=== PATIENT | male | born 1960 | race Caucasian/White ===

== ENCOUNTER 2020-12-07 09:23 | Outpatient (CLI) | payer MEDICARE, MEDICAID, SELFPAY | END 2020-12-07 09:24 | disposition home or self-care (01) | LOC: WOUND 09:25 | PROVIDERS: Family Provider Physician Assistant Medical; Visit Provider Nurse Practitioner Family | DX: L97.812 Non-pressure chronic ulcer of other part of right lower leg with fat layer exposed (principal); L97.512 Non-pressure chronic ulcer of other part of right foot with fat layer exposed; L97.822 Non-pressure chronic ulcer of other part of left lower leg with fat layer exposed; L97.522 Non-pressure chronic ulcer of other part of left foot with fat layer exposed | CPT/HCPCS: 11042; 99215 ==

== ENCOUNTER 2020-12-14 10:47 | Outpatient (CLI) | payer MEDICARE, MEDICAID, SELFPAY | END 2020-12-14 10:48 | disposition home or self-care (01) | LOC: WOUND 10:48 | PROVIDERS: Family Provider Physician Assistant Medical; Visit Provider Nurse Practitioner Family | DX: L97.812 Non-pressure chronic ulcer of other part of right lower leg with fat layer exposed (principal); L97.512 Non-pressure chronic ulcer of other part of right foot with fat layer exposed; L97.822 Non-pressure chronic ulcer of other part of left lower leg with fat layer exposed; L97.522 Non-pressure chronic ulcer of other part of left foot with fat layer exposed | CPT/HCPCS: 11042; 11045 ==

== ENCOUNTER 2020-12-21 10:25 | Outpatient (CLI) | payer MEDICARE, MEDICAID, SELFPAY | END 2020-12-21 10:26 | disposition home or self-care (01) | LOC: WOUND 10:28 | PROVIDERS: Family Provider Physician Assistant Medical; Visit Provider Nurse Practitioner Family | DX: I89.0 Lymphedema, not elsewhere classified (principal); L97.812 Non-pressure chronic ulcer of other part of right lower leg with fat layer exposed; L97.512 Non-pressure chronic ulcer of other part of right foot with fat layer exposed; L97.822 Non-pressure chronic ulcer of other part of left lower leg with fat layer exposed; L97.522 Non-pressure chronic ulcer of other part of left foot with fat layer exposed | CPT/HCPCS: 99215 ==

== ENCOUNTER 2020-12-28 10:46 | Outpatient (CLI) | payer MEDICARE, MEDICAID, SELFPAY | END 2020-12-28 10:47 | disposition home or self-care (01) | LOC: WOUND 10:47 | PROVIDERS: Family Provider Physician Assistant Medical; Visit Provider Nurse Practitioner Family | DX: I89.0 Lymphedema, not elsewhere classified (principal); L97.512 Non-pressure chronic ulcer of other part of right foot with fat layer exposed; L97.822 Non-pressure chronic ulcer of other part of left lower leg with fat layer exposed; L97.522 Non-pressure chronic ulcer of other part of left foot with fat layer exposed | CPT/HCPCS: 11042 ==

== ENCOUNTER 2021-01-04 10:03 | Outpatient (CLI) | payer MEDICARE, MEDICAID, SELFPAY | END 2021-01-04 10:04 | disposition home or self-care (01) | LOC: WOUND 10:07 | PROVIDERS: Family Provider Physician Assistant Medical; Visit Provider Nurse Practitioner Family | DX: I89.0 Lymphedema, not elsewhere classified (principal); L97.512 Non-pressure chronic ulcer of other part of right foot with fat layer exposed; L97.822 Non-pressure chronic ulcer of other part of left lower leg with fat layer exposed; L97.522 Non-pressure chronic ulcer of other part of left foot with fat layer exposed | CPT/HCPCS: 11042; 11045 ==

== ENCOUNTER 2021-01-25 10:25 | Outpatient (CLI) | payer MEDICARE, MEDICAID, SELFPAY | END 2021-01-25 10:26 | disposition home or self-care (01) | LOC: WOUND 10:26 | PROVIDERS: Family Provider Physician Assistant Medical; Visit Provider Nurse Practitioner Family | DX: I89.0 Lymphedema, not elsewhere classified (principal); L97.512 Non-pressure chronic ulcer of other part of right foot with fat layer exposed; L97.522 Non-pressure chronic ulcer of other part of left foot with fat layer exposed | CPT/HCPCS: 11042 ==

== ENCOUNTER 2021-02-01 09:39 | Outpatient (CLI) | payer MEDICARE, MEDICAID, SELFPAY | END 2021-02-01 09:40 | disposition home or self-care (01) | LOC: WOUND 09:40 | PROVIDERS: Family Provider Physician Assistant Medical; Visit Provider Nurse Practitioner Family | DX: I89.0 Lymphedema, not elsewhere classified (principal); L97.512 Non-pressure chronic ulcer of other part of right foot with fat layer exposed; L97.522 Non-pressure chronic ulcer of other part of left foot with fat layer exposed | CPT/HCPCS: 11042 ==

== ENCOUNTER 2021-02-08 10:17 | Outpatient (CLI) | payer MEDICARE, MEDICAID, SELFPAY | END 2021-02-08 10:18 | disposition home or self-care (01) | LOC: WOUND 10:18 | PROVIDERS: Family Provider Physician Assistant Medical; Visit Provider Nurse Practitioner Family | DX: I89.0 Lymphedema, not elsewhere classified (principal); L97.512 Non-pressure chronic ulcer of other part of right foot with fat layer exposed; L97.522 Non-pressure chronic ulcer of other part of left foot with fat layer exposed | CPT/HCPCS: 11042; 87070; 87075; 87077; 87186; 87205 ==

== ENCOUNTER 2021-02-15 11:06 | Outpatient (CLI) | payer MEDICARE, MEDICAID, SELFPAY | END 2021-02-15 11:07 | disposition home or self-care (01) | LOC: WOUND 11:07 | PROVIDERS: Family Provider Physician Assistant Medical; Visit Provider Nurse Practitioner Family | DX: I89.0 Lymphedema, not elsewhere classified (principal); L97.512 Non-pressure chronic ulcer of other part of right foot with fat layer exposed; L97.522 Non-pressure chronic ulcer of other part of left foot with fat layer exposed | CPT/HCPCS: 11042 ==

== ENCOUNTER 2021-03-01 11:42 | Outpatient (CLI) | payer MEDICARE, MEDICAID, SELFPAY ==
--- NOTE | 2021-03-01 11:54 | XRR_ITS ---
PROCEDURE INFORMATION: Exam: XR Left Foot Exam date and time: 03/01/2021 11:54 AM Age: 60 years old Clinical indication: Condition or disease; Other: Dm ulcer; Additional info: Dm ulcer- attn: 2nd toe TECHNIQUE: Imaging protocol: XR Left foot. Views: 3 or more views. COMPARISON: No relevant prior studies available. FINDINGS: Bones/joints: Bulky spurring along the posterolateral talus. Moderate enthesophyte at the Achilles insertion. Love-ya-axlxgtnd degenerative spurring around the partially visualized ankle mortise. No cortical erosive changes or intramedullary lucency seen throughout the osseous structures of the left foot and in particular the 2nd toe. Soft tissues: Normal. XR/XR foot LT min 3V* [id number] IMPRESSION: No radiographic findings of acute osteomyelitis.
== END 2021-03-01 11:43 | disposition home or self-care (01) ==
LOC: RAD 11:50
PROVIDERS: PCP Physician Assistant Medical; Visit Provider Nurse Practitioner Family
DX: E11.621 Type 2 diabetes mellitus with foot ulcer (principal)
CPT/HCPCS: 73630

== ENCOUNTER 2021-03-08 10:57 | Outpatient (CLI) | payer MEDICARE, MEDICAID, SELFPAY | END 2021-03-08 10:58 | disposition home or self-care (01) | LOC: WOUND 10:58 | PROVIDERS: PCP Physician Assistant Medical; Visit Provider Nurse Practitioner Family | DX: E11.622 Type 2 diabetes mellitus with other skin ulcer (principal); L97.821 Non-pressure chronic ulcer of other part of left lower leg limited to breakdown of skin; I89.0 Lymphedema, not elsewhere classified; L97.512 Non-pressure chronic ulcer of other part of right foot with fat layer exposed; E11.621 Type 2 diabetes mellitus with foot ulcer; L97.521 Non-pressure chronic ulcer of other part of left foot limited to breakdown of skin | CPT/HCPCS: 11042 ==

== ENCOUNTER 2021-03-15 10:34 | Outpatient (CLI) | payer MEDICARE, MEDICAID, SELFPAY | END 2021-03-15 10:35 | disposition home or self-care (01) | LOC: WOUND 10:36 | PROVIDERS: PCP Physician Assistant Medical; Visit Provider Nurse Practitioner Family | DX: E11.622 Type 2 diabetes mellitus with other skin ulcer (principal); L97.812 Non-pressure chronic ulcer of other part of right lower leg with fat layer exposed | CPT/HCPCS: 11042 ==

== ENCOUNTER 2021-03-22 10:52 | Outpatient (CLI) | payer MEDICARE, MEDICAID, SELFPAY | END 2021-03-22 10:53 | disposition home or self-care (01) | LOC: WOUND 10:53 | PROVIDERS: PCP Physician Assistant Medical; Visit Provider Nurse Practitioner Family | DX: E11.622 Type 2 diabetes mellitus with other skin ulcer (principal); L97.812 Non-pressure chronic ulcer of other part of right lower leg with fat layer exposed; I89.0 Lymphedema, not elsewhere classified | CPT/HCPCS: 11042 ==

== ENCOUNTER 2021-03-29 11:26 | Outpatient (CLI) | payer MEDICARE, MEDICAID, SELFPAY | END 2021-03-29 11:27 | disposition home or self-care (01) | LOC: WOUND 11:27 | PROVIDERS: PCP Physician Assistant Medical; Visit Provider Emergency Medicine | DX: E11.622 Type 2 diabetes mellitus with other skin ulcer (principal); L97.812 Non-pressure chronic ulcer of other part of right lower leg with fat layer exposed; I89.0 Lymphedema, not elsewhere classified | CPT/HCPCS: 11042 ==

== ENCOUNTER 2021-04-05 10:50 | Outpatient (CLI) | payer MEDICARE, MEDICAID, SELFPAY | END 2021-04-05 10:51 | disposition home or self-care (01) | LOC: WOUND 10:56 | PROVIDERS: PCP Physician Assistant Medical; Visit Provider Nurse Practitioner Family | DX: E11.622 Type 2 diabetes mellitus with other skin ulcer (principal); L97.812 Non-pressure chronic ulcer of other part of right lower leg with fat layer exposed; E11.621 Type 2 diabetes mellitus with foot ulcer; L97.519 Non-pressure chronic ulcer of other part of right foot with unspecified severity | CPT/HCPCS: 11042 ==

== ENCOUNTER 2021-04-12 10:53 | Outpatient (CLI) | payer MEDICARE, MEDICAID, SELFPAY | END 2021-04-12 10:54 | disposition home or self-care (01) | LOC: WOUND 10:54 | PROVIDERS: Visit Provider Emergency Medicine | DX: E11.622 Type 2 diabetes mellitus with other skin ulcer (principal); L97.812 Non-pressure chronic ulcer of other part of right lower leg with fat layer exposed; E11.621 Type 2 diabetes mellitus with foot ulcer; L97.512 Non-pressure chronic ulcer of other part of right foot with fat layer exposed | CPT/HCPCS: 11042 ==

== ENCOUNTER 2021-05-03 10:55 | Outpatient (CLI) | payer MEDICARE, MEDICAID, SELFPAY | END 2021-05-03 10:56 | disposition home or self-care (01) | LOC: WOUND 10:56 | PROVIDERS: Visit Provider Emergency Medicine | DX: E11.622 Type 2 diabetes mellitus with other skin ulcer (principal); L97.812 Non-pressure chronic ulcer of other part of right lower leg with fat layer exposed; E11.621 Type 2 diabetes mellitus with foot ulcer; L97.512 Non-pressure chronic ulcer of other part of right foot with fat layer exposed | CPT/HCPCS: 11042 ==

== ENCOUNTER 2021-05-10 10:35 | Outpatient (CLI) | payer MEDICARE, MEDICAID, SELFPAY | END 2021-05-10 10:36 | disposition home or self-care (01) | LOC: WOUND 10:41 | PROVIDERS: Visit Provider Emergency Medicine | DX: E11.622 Type 2 diabetes mellitus with other skin ulcer (principal); L97.812 Non-pressure chronic ulcer of other part of right lower leg with fat layer exposed; E11.621 Type 2 diabetes mellitus with foot ulcer; L97.519 Non-pressure chronic ulcer of other part of right foot with unspecified severity | CPT/HCPCS: 11042; 87070; 87077; 87176; 87186; 87205; 99212 ==

== ENCOUNTER 2021-05-17 10:50 | Outpatient (CLI) | payer MEDICARE, MEDICAID, SELFPAY | END 2021-05-17 10:51 | disposition home or self-care (01) | LOC: WOUND 10:51 | PROVIDERS: Visit Provider Emergency Medicine | DX: E11.622 Type 2 diabetes mellitus with other skin ulcer (principal); L97.812 Non-pressure chronic ulcer of other part of right lower leg with fat layer exposed | CPT/HCPCS: 11042; 99212 ==

== ENCOUNTER 2021-05-24 11:19 | Outpatient (CLI) | payer MEDICARE, MEDICAID, SELFPAY | END 2021-05-24 11:20 | disposition home or self-care (01) | LOC: WOUND 11:20 | PROVIDERS: Visit Provider Emergency Medicine | DX: E11.622 Type 2 diabetes mellitus with other skin ulcer (principal); L97.812 Non-pressure chronic ulcer of other part of right lower leg with fat layer exposed | CPT/HCPCS: 11042 ==

== ENCOUNTER 2021-05-31 10:25 | Outpatient (CLI) | payer MEDICARE, MEDICAID, SELFPAY | END 2021-05-31 10:26 | disposition home or self-care (01) | LOC: WOUND 10:26 | PROVIDERS: Visit Provider Emergency Medicine | DX: E11.622 Type 2 diabetes mellitus with other skin ulcer (principal); L97.812 Non-pressure chronic ulcer of other part of right lower leg with fat layer exposed | CPT/HCPCS: 11042 ==

== ENCOUNTER 2021-06-07 10:47 | Outpatient (CLI) | payer MEDICARE, MEDICAID, SELFPAY | END 2021-06-07 10:48 | disposition home or self-care (01) | LOC: WOUND 10:49 | PROVIDERS: Visit Provider Emergency Medicine | DX: I96 Gangrene, not elsewhere classified (principal); E11.622 Type 2 diabetes mellitus with other skin ulcer; L97.812 Non-pressure chronic ulcer of other part of right lower leg with fat layer exposed; S31.811A Laceration without foreign body of right buttock, initial encounter; X58.XXXA Exposure to other specified factors, initial encounter | CPT/HCPCS: 11042; 11045; 87070; 87077; 87176; 87186; 87205 ==

== ENCOUNTER 2021-06-14 10:01 | Outpatient (CLI) | payer MEDICARE, MEDICAID, SELFPAY | END 2021-06-14 10:02 | disposition home or self-care (01) | LOC: WOUND 10:03 | PROVIDERS: Visit Provider Nurse Practitioner Family | DX: E11.622 Type 2 diabetes mellitus with other skin ulcer (principal); L97.812 Non-pressure chronic ulcer of other part of right lower leg with fat layer exposed; L98.411 Non-pressure chronic ulcer of buttock limited to breakdown of skin | CPT/HCPCS: 11042; A6251 ==

== ENCOUNTER 2021-06-21 10:31 | Outpatient (CLI) | payer MEDICARE, MEDICAID, SELFPAY | END 2021-06-21 10:32 | disposition home or self-care (01) | LOC: WOUND 10:31 | PROVIDERS: Visit Provider Emergency Medicine | DX: E11.622 Type 2 diabetes mellitus with other skin ulcer (principal); L97.812 Non-pressure chronic ulcer of other part of right lower leg with fat layer exposed; L98.411 Non-pressure chronic ulcer of buttock limited to breakdown of skin | CPT/HCPCS: 11042; 15271; A6250; A6252; Q4186 ==

== ENCOUNTER 2021-06-28 10:52 | Outpatient (CLI) | payer MEDICARE, MEDICAID, SELFPAY | END 2021-06-28 10:53 | disposition home or self-care (01) | LOC: WOUND 10:53 | PROVIDERS: Visit Provider Nurse Practitioner Family | DX: E11.622 Type 2 diabetes mellitus with other skin ulcer (principal); L97.812 Non-pressure chronic ulcer of other part of right lower leg with fat layer exposed | CPT/HCPCS: 11042 ==

== ENCOUNTER 2021-07-05 11:57 | Outpatient (CLI) | payer MEDICARE, MEDICAID, SELFPAY | END 2021-07-05 11:58 | disposition home or self-care (01) | LOC: WOUND 11:58 | PROVIDERS: Visit Provider Emergency Medicine | DX: E11.622 Type 2 diabetes mellitus with other skin ulcer (principal); L97.812 Non-pressure chronic ulcer of other part of right lower leg with fat layer exposed; I10 Essential (primary) hypertension | CPT/HCPCS: 15271; A6219; A6250; Q4186 ==

== ENCOUNTER 2021-07-12 11:09 | Outpatient (CLI) | payer MEDICARE, MEDICAID, SELFPAY | END 2021-07-12 11:10 | disposition home or self-care (01) | LOC: WOUND 11:10 | PROVIDERS: Visit Provider Emergency Medicine | DX: E11.622 Type 2 diabetes mellitus with other skin ulcer (principal); L97.812 Non-pressure chronic ulcer of other part of right lower leg with fat layer exposed; E11.621 Type 2 diabetes mellitus with foot ulcer; L97.512 Non-pressure chronic ulcer of other part of right foot with fat layer exposed; I10 Essential (primary) hypertension | CPT/HCPCS: 11042; 87070; 87077; 87176; 87186; 87205; 99212 ==

== ENCOUNTER 2021-07-19 10:58 | Outpatient (CLI) | payer MEDICARE, MEDICAID, SELFPAY | END 2021-07-19 10:59 | disposition home or self-care (01) | LOC: WOUND 11:01 | PROVIDERS: Visit Provider Emergency Medicine | DX: E11.622 Type 2 diabetes mellitus with other skin ulcer (principal); L97.812 Non-pressure chronic ulcer of other part of right lower leg with fat layer exposed; E11.621 Type 2 diabetes mellitus with foot ulcer; L97.512 Non-pressure chronic ulcer of other part of right foot with fat layer exposed; L97.522 Non-pressure chronic ulcer of other part of left foot with fat layer exposed | CPT/HCPCS: 11042; 11045; A6197; A6212 ==

== ENCOUNTER 2021-07-26 10:56 | Outpatient (CLI) | payer MEDICARE, MEDICAID, SELFPAY | END 2021-07-26 10:57 | disposition home or self-care (01) | LOC: WOUND 10:57 | PROVIDERS: Visit Provider Emergency Medicine | DX: E11.622 Type 2 diabetes mellitus with other skin ulcer (principal); L97.812 Non-pressure chronic ulcer of other part of right lower leg with fat layer exposed; E11.621 Type 2 diabetes mellitus with foot ulcer; L97.512 Non-pressure chronic ulcer of other part of right foot with fat layer exposed; L97.522 Non-pressure chronic ulcer of other part of left foot with fat layer exposed; I10 Essential (primary) hypertension | CPT/HCPCS: 11042; 11045 ==

== ENCOUNTER 2021-08-02 10:50 | Outpatient (CLI) | payer MEDICARE, MEDICAID, SELFPAY | END 2021-08-02 10:51 | disposition home or self-care (01) | LOC: WOUND 11:03 | PROVIDERS: Visit Provider Emergency Medicine | DX: E11.622 Type 2 diabetes mellitus with other skin ulcer (principal); L97.812 Non-pressure chronic ulcer of other part of right lower leg with fat layer exposed; I96 Gangrene, not elsewhere classified; E11.621 Type 2 diabetes mellitus with foot ulcer; L97.522 Non-pressure chronic ulcer of other part of left foot with fat layer exposed | CPT/HCPCS: 11042; 11045; 99212 ==

== ENCOUNTER 2021-08-09 11:09 | Outpatient (CLI) | payer MEDICARE, MEDICAID, SELFPAY | END 2021-08-09 11:10 | disposition home or self-care (01) | LOC: WOUND 11:10 | PROVIDERS: Visit Provider Nurse Practitioner Family | DX: E11.622 Type 2 diabetes mellitus with other skin ulcer (principal); L97.812 Non-pressure chronic ulcer of other part of right lower leg with fat layer exposed; E11.621 Type 2 diabetes mellitus with foot ulcer; L97.522 Non-pressure chronic ulcer of other part of left foot with fat layer exposed; L97.822 Non-pressure chronic ulcer of other part of left lower leg with fat layer exposed | CPT/HCPCS: 11042; 11045 ==

== ENCOUNTER 2021-08-16 10:42 | Outpatient (CLI) | payer MEDICARE, MEDICAID, SELFPAY | END 2021-08-16 10:43 | disposition home or self-care (01) | LOC: WOUND 10:43 | PROVIDERS: Visit Provider Nurse Practitioner Family | DX: I96 Gangrene, not elsewhere classified (principal); E11.622 Type 2 diabetes mellitus with other skin ulcer; L97.812 Non-pressure chronic ulcer of other part of right lower leg with fat layer exposed; E11.621 Type 2 diabetes mellitus with foot ulcer; L97.522 Non-pressure chronic ulcer of other part of left foot with fat layer exposed | CPT/HCPCS: 11042; 11045 ==

== ENCOUNTER 2021-08-23 09:41 | Outpatient (CLI) | payer MEDICARE, MEDICAID, SELFPAY | END 2021-08-23 09:42 | disposition home or self-care (01) | LOC: WOUND 09:44 | PROVIDERS: Visit Provider Thoracic Surgery (Cardiothoracic Vascular Surgery) | DX: I96 Gangrene, not elsewhere classified (principal); E11.622 Type 2 diabetes mellitus with other skin ulcer; L97.812 Non-pressure chronic ulcer of other part of right lower leg with fat layer exposed; E11.621 Type 2 diabetes mellitus with foot ulcer; L97.521 Non-pressure chronic ulcer of other part of left foot limited to breakdown of skin; L89.892 Pressure ulcer of other site, stage 2 | CPT/HCPCS: 11042; 97597 ==

== ENCOUNTER 2021-08-30 11:00 | Outpatient (CLI) | payer MEDICARE, MEDICAID, SELFPAY | END 2021-08-30 11:01 | disposition home or self-care (01) | LOC: WOUND 11:02 | PROVIDERS: Visit Provider Thoracic Surgery (Cardiothoracic Vascular Surgery) | DX: E11.622 Type 2 diabetes mellitus with other skin ulcer (principal); L97.811 Non-pressure chronic ulcer of other part of right lower leg limited to breakdown of skin; E11.621 Type 2 diabetes mellitus with foot ulcer; L97.522 Non-pressure chronic ulcer of other part of left foot with fat layer exposed; L97.511 Non-pressure chronic ulcer of other part of right foot limited to breakdown of skin | CPT/HCPCS: 11042; 97597 ==

== ENCOUNTER 2021-09-06 13:14 | Outpatient (CLI) | payer MEDICARE, MEDICAID, SELFPAY | END 2021-09-06 13:15 | disposition home or self-care (01) | LOC: WOUND 13:15 | PROVIDERS: Visit Provider Nurse Practitioner Family | DX: E11.622 Type 2 diabetes mellitus with other skin ulcer (principal); L97.812 Non-pressure chronic ulcer of other part of right lower leg with fat layer exposed; L97.822 Non-pressure chronic ulcer of other part of left lower leg with fat layer exposed; E11.621 Type 2 diabetes mellitus with foot ulcer; L97.512 Non-pressure chronic ulcer of other part of right foot with fat layer exposed; L97.522 Non-pressure chronic ulcer of other part of left foot with fat layer exposed | CPT/HCPCS: 11042; 11045 ==

== ENCOUNTER 2021-09-20 10:05 | Outpatient (CLI) | payer MEDICARE, MEDICAID, SELFPAY | END 2021-09-20 10:06 | disposition home or self-care (01) | LOC: WOUND 10:08 | PROVIDERS: Visit Provider Thoracic Surgery (Cardiothoracic Vascular Surgery) | DX: E11.622 Type 2 diabetes mellitus with other skin ulcer (principal); L97.811 Non-pressure chronic ulcer of other part of right lower leg limited to breakdown of skin; E11.621 Type 2 diabetes mellitus with foot ulcer; L97.521 Non-pressure chronic ulcer of other part of left foot limited to breakdown of skin | CPT/HCPCS: 97597; 97598; A6252; A6253 ==

== ENCOUNTER 2021-09-27 10:52 | Outpatient (CLI) | payer MEDICARE, MEDICAID, SELFPAY | END 2021-09-27 10:53 | disposition home or self-care (01) | LOC: WOUND 10:54 | PROVIDERS: Visit Provider Thoracic Surgery (Cardiothoracic Vascular Surgery) | DX: E11.622 Type 2 diabetes mellitus with other skin ulcer (principal); L97.812 Non-pressure chronic ulcer of other part of right lower leg with fat layer exposed; E11.621 Type 2 diabetes mellitus with foot ulcer; L97.522 Non-pressure chronic ulcer of other part of left foot with fat layer exposed | CPT/HCPCS: 11042; 97597 ==

== ENCOUNTER 2021-10-04 10:43 | Outpatient (CLI) | payer MEDICARE, MEDICAID, SELFPAY | END 2021-10-04 10:44 | disposition home or self-care (01) | LOC: WOUND 10:47 | PROVIDERS: Visit Provider Thoracic Surgery (Cardiothoracic Vascular Surgery) | DX: E11.622 Type 2 diabetes mellitus with other skin ulcer (principal); L97.811 Non-pressure chronic ulcer of other part of right lower leg limited to breakdown of skin; E11.621 Type 2 diabetes mellitus with foot ulcer; L97.521 Non-pressure chronic ulcer of other part of left foot limited to breakdown of skin | CPT/HCPCS: 97597; 97598 ==

== ENCOUNTER 2021-10-11 10:28 | Outpatient (CLI) | payer MEDICARE, MEDICAID, SELFPAY | END 2021-10-11 10:29 | disposition home or self-care (01) | LOC: WOUND 10:29 | PROVIDERS: Visit Provider Thoracic Surgery (Cardiothoracic Vascular Surgery) | DX: E11.621 Type 2 diabetes mellitus with foot ulcer (principal); L97.811 Non-pressure chronic ulcer of other part of right lower leg limited to breakdown of skin; E11.622 Type 2 diabetes mellitus with other skin ulcer; L97.522 Non-pressure chronic ulcer of other part of left foot with fat layer exposed | CPT/HCPCS: 11042; 87070; 87077; 87176; 87186; 87205; 97597 ==

== ENCOUNTER 2021-10-18 09:38 | Outpatient (CLI) | payer MEDICARE, MEDICAID, SELFPAY | END 2021-10-18 09:39 | disposition home or self-care (01) | PROVIDERS: Visit Provider Thoracic Surgery (Cardiothoracic Vascular Surgery) | DX: E11.621 Type 2 diabetes mellitus with foot ulcer (principal); E11.622 Type 2 diabetes mellitus with other skin ulcer; L97.821 Non-pressure chronic ulcer of other part of left lower leg limited to breakdown of skin; L97.522 Non-pressure chronic ulcer of other part of left foot with fat layer exposed; I89.0 Lymphedema, not elsewhere classified | CPT/HCPCS: 11042; 97597 ==

== ENCOUNTER 2021-10-25 09:42 | Outpatient (CLI) | payer MEDICARE, MEDICAID, SELFPAY | END 2021-10-25 09:43 | disposition home or self-care (01) | LOC: WOUND 09:44 | PROVIDERS: Visit Provider Thoracic Surgery (Cardiothoracic Vascular Surgery) | DX: E11.622 Type 2 diabetes mellitus with other skin ulcer (principal); L97.811 Non-pressure chronic ulcer of other part of right lower leg limited to breakdown of skin; E11.621 Type 2 diabetes mellitus with foot ulcer; L97.522 Non-pressure chronic ulcer of other part of left foot with fat layer exposed; L97.512 Non-pressure chronic ulcer of other part of right foot with fat layer exposed | CPT/HCPCS: 97597 ==

== ENCOUNTER 2021-11-01 09:26 | Outpatient (CLI) | payer MEDICARE, MEDICAID, SELFPAY | END 2021-11-01 09:27 | disposition home or self-care (01) | LOC: WOUND 09:27 | PROVIDERS: Visit Provider Thoracic Surgery (Cardiothoracic Vascular Surgery) | DX: E11.622 Type 2 diabetes mellitus with other skin ulcer (principal); I96 Gangrene, not elsewhere classified; L97.811 Non-pressure chronic ulcer of other part of right lower leg limited to breakdown of skin; L97.822 Non-pressure chronic ulcer of other part of left lower leg with fat layer exposed; L97.522 Non-pressure chronic ulcer of other part of left foot with fat layer exposed; L97.512 Non-pressure chronic ulcer of other part of right foot with fat layer exposed | CPT/HCPCS: 97597; A6252 ==

== ENCOUNTER 2021-11-08 09:38 | Outpatient (CLI) | payer MEDICARE, MEDICAID, SELFPAY | END 2021-11-08 09:39 | disposition home or self-care (01) | LOC: WOUND 09:39 | PROVIDERS: Visit Provider Thoracic Surgery (Cardiothoracic Vascular Surgery) | DX: E11.622 Type 2 diabetes mellitus with other skin ulcer (principal); L97.811 Non-pressure chronic ulcer of other part of right lower leg limited to breakdown of skin; E11.621 Type 2 diabetes mellitus with foot ulcer; L97.522 Non-pressure chronic ulcer of other part of left foot with fat layer exposed; L97.822 Non-pressure chronic ulcer of other part of left lower leg with fat layer exposed; L97.512 Non-pressure chronic ulcer of other part of right foot with fat layer exposed; I96 Gangrene, not elsewhere classified | CPT/HCPCS: 97597; A6251; A6252 ==

== ENCOUNTER → 2021-11-15 09:30 | Outpatient (BNVA) | payer MEDICARE, MEDICAID, SELFPAY | PROVIDERS: Visit Provider Nurse Practitioner Family | DX: E11.622 Type 2 diabetes mellitus with other skin ulcer (principal); E11.621 Type 2 diabetes mellitus with foot ulcer; I96 Gangrene, not elsewhere classified; L97.811 Non-pressure chronic ulcer of other part of right lower leg limited to breakdown of skin; L97.522 Non-pressure chronic ulcer of other part of left foot with fat layer exposed; L97.822 Non-pressure chronic ulcer of other part of left lower leg with fat layer exposed | CPT/HCPCS: 11042; A6251; A6252 ==

== ENCOUNTER → 2021-11-22 09:33 | Outpatient (BNVA) | payer MEDICARE, MEDICAID, SELFPAY | PROVIDERS: Visit Provider Thoracic Surgery (Cardiothoracic Vascular Surgery) | DX: E11.622 Type 2 diabetes mellitus with other skin ulcer (principal); I96 Gangrene, not elsewhere classified; L97.811 Non-pressure chronic ulcer of other part of right lower leg limited to breakdown of skin; L97.822 Non-pressure chronic ulcer of other part of left lower leg with fat layer exposed | CPT/HCPCS: 11042; 29581; 97597; A6252 ==

== ENCOUNTER → 2021-11-29 09:38 | Outpatient (BNVA) | payer MEDICARE, MEDICAID, SELFPAY | PROVIDERS: Visit Provider Thoracic Surgery (Cardiothoracic Vascular Surgery) | DX: E11.622 Type 2 diabetes mellitus with other skin ulcer (principal); L97.811 Non-pressure chronic ulcer of other part of right lower leg limited to breakdown of skin; I96 Gangrene, not elsewhere classified; L97.822 Non-pressure chronic ulcer of other part of left lower leg with fat layer exposed | CPT/HCPCS: 11042; 97597; A6252 ==

== ENCOUNTER → 2021-12-06 09:31 | Outpatient (BNVA) | payer MEDICARE, MEDICAID, SELFPAY | PROVIDERS: Visit Provider Thoracic Surgery (Cardiothoracic Vascular Surgery) | DX: E11.622 Type 2 diabetes mellitus with other skin ulcer (principal); I96 Gangrene, not elsewhere classified; L97.811 Non-pressure chronic ulcer of other part of right lower leg limited to breakdown of skin; L97.822 Non-pressure chronic ulcer of other part of left lower leg with fat layer exposed; L97.512 Non-pressure chronic ulcer of other part of right foot with fat layer exposed | CPT/HCPCS: 97597 ==

== ENCOUNTER → 2021-12-13 09:40 | Outpatient (BNVA) | payer MEDICARE, MEDICAID, SELFPAY | PROVIDERS: Visit Provider Thoracic Surgery (Cardiothoracic Vascular Surgery) | DX: E11.622 Type 2 diabetes mellitus with other skin ulcer (principal); L97.811 Non-pressure chronic ulcer of other part of right lower leg limited to breakdown of skin; I96 Gangrene, not elsewhere classified; L97.822 Non-pressure chronic ulcer of other part of left lower leg with fat layer exposed; L97.512 Non-pressure chronic ulcer of other part of right foot with fat layer exposed; E11.621 Type 2 diabetes mellitus with foot ulcer | CPT/HCPCS: 97597; 97598; A6252 ==

== ENCOUNTER 2021-12-14 11:41 | Outpatient (CLI) | payer MEDICARE, MEDICAID, SELFPAY ==
--- NOTE | 2021-12-14 12:09 | USCV_ITS ---
Avel Hurley Age: 61 Gender: M : 1960 Exam Date: 12/14/2021 12:46 Ordering Phys: Sy Borrego MD (Andy) ([email or web address] Technologist: SMITA Exam Location: [facility] [place] Indication: NON HEALING ULCERS BILATERAL LOWER LEGS Risk Factors: Unknown (non healing wounds legs an buttock) Previous Vascular Surgery: Pt states no RIGHT LEFT BP: 130.0 / BP: 125.0/ 0 0 Waveform Velocity (cm/s) Velocity (cm/s) Waveform Triphasic 90.6 Iliac Prox 88.8 Triphasic Triphasic 72.7 Iliac Mid 68.9 Triphasic Triphasic 62.2 Iliac Distal 71.0 Triphasic Triphasic 49.9 PSYCH ASSISTANT 54.3 Triphasic Triphasic 58.7 SFA Prox 68.9 Triphasic Biphasic SFA Mid Triphasic 62.2 71.0 Biphasic 43.8 POP 44.9 Biphasic Biphasic 35.5 ANIME DESIGNER 87.7 Biphasic Biphasic 18.3 DPA FINDINGS Technically difficult study Distal SFA was not visualized bilaterally. Near normal flow pattern in the infrapopliteal vessels on the right side. The left dorsalis pedis artery could not be visualized CONCLUSIONS Technically limited study Distal superficial femoral artery could not be visualized on either side, due to technical difficulties Near normal Doppler flow signals on the right side Possible occlusion of the dorsalis pedis artery on the left side with a near normal Doppler flow signals in the other vessels Consider CTA /peripheral angio to better evaluate the arteries, if clinically indicated Dr Juan M Morgan MD [facility] (Electronically Signed) Final Date: 20 Dec 2021 08:10 S
== END 2021-12-14 11:42 | disposition home or self-care (01) ==
LOC: RAD 11:46
PROVIDERS: Visit Provider Thoracic Surgery (Cardiothoracic Vascular Surgery)
DX: I70.223 Atherosclerosis of native arteries of extremities with rest pain, bilateral legs (principal)
CPT/HCPCS: 93925

== ENCOUNTER → 2021-12-20 09:33 | Outpatient (BNVA) | payer MEDICARE, MEDICAID, SELFPAY | PROVIDERS: Visit Provider Thoracic Surgery (Cardiothoracic Vascular Surgery) | DX: E11.622 Type 2 diabetes mellitus with other skin ulcer (principal); L97.811 Non-pressure chronic ulcer of other part of right lower leg limited to breakdown of skin; I96 Gangrene, not elsewhere classified; L97.822 Non-pressure chronic ulcer of other part of left lower leg with fat layer exposed; L97.512 Non-pressure chronic ulcer of other part of right foot with fat layer exposed; L97.821 Non-pressure chronic ulcer of other part of left lower leg limited to breakdown of skin; L97.421 Non-pressure chronic ulcer of left heel and midfoot limited to breakdown of skin | CPT/HCPCS: 11042; 97597 ==

== ENCOUNTER → 2021-12-27 09:31 | Outpatient (BNVA) | payer MEDICARE, MEDICAID, SELFPAY | PROVIDERS: Visit Provider Thoracic Surgery (Cardiothoracic Vascular Surgery) | DX: E11.622 Type 2 diabetes mellitus with other skin ulcer (principal); L97.821 Non-pressure chronic ulcer of other part of left lower leg limited to breakdown of skin; I96 Gangrene, not elsewhere classified; L97.822 Non-pressure chronic ulcer of other part of left lower leg with fat layer exposed; L97.512 Non-pressure chronic ulcer of other part of right foot with fat layer exposed; L97.421 Non-pressure chronic ulcer of left heel and midfoot limited to breakdown of skin | CPT/HCPCS: 11042; 97597; A6251; A6252 ==

== ENCOUNTER → 2022-01-03 09:59 | Outpatient (BNVA) | payer MEDICARE, MEDICAID, SELFPAY | PROVIDERS: Visit Provider Thoracic Surgery (Cardiothoracic Vascular Surgery) | DX: E11.622 Type 2 diabetes mellitus with other skin ulcer (principal); E11.621 Type 2 diabetes mellitus with foot ulcer; I96 Gangrene, not elsewhere classified; L97.811 Non-pressure chronic ulcer of other part of right lower leg limited to breakdown of skin; L97.822 Non-pressure chronic ulcer of other part of left lower leg with fat layer exposed; L97.512 Non-pressure chronic ulcer of other part of right foot with fat layer exposed; L97.821 Non-pressure chronic ulcer of other part of left lower leg limited to breakdown of skin | CPT/HCPCS: 11042; 97597; A6252 ==

== ENCOUNTER 2022-01-05 08:57 | Outpatient (CLI) | payer MEDICARE, MEDICAID, SELFPAY ==
--- NOTE | 2022-01-05 09:22 | XR_ITS ---
WS: [id number] Left foot, 3 views, 01/05/2022 Clinical Data: E11.621 - Type 2 diabetes mellitus with foot ulcer Comparison: Left foot, 03/01/2021. Findings: No fractures or dislocations are seen. There is osteoarthritic change of the left ankle joint with sp urring of the distal tibia and talus.There is soft tissue swelling about the left foot especially on the dorsal surface. No osteomyelitis is seen. There is an Achilles spur. XR/XR foot LT min 3V* [id number] Impression: 1. Soft tissue swelling of the left foot without bone destruction or erosion. 2. Osteoarthritic change of the left ankle joint.
== END 2022-01-05 08:58 | disposition home or self-care (01) ==
LOC: RAD 09:02
PROVIDERS: PCP Registered Nurse; Visit Provider Thoracic Surgery (Cardiothoracic Vascular Surgery)
DX: E11.621 Type 2 diabetes mellitus with foot ulcer (principal); L97.509 Non-pressure chronic ulcer of other part of unspecified foot with unspecified severity
CPT/HCPCS: 73630

== ENCOUNTER → 2022-01-10 10:19 | Outpatient (BNVA) | payer MEDICARE, MEDICAID, SELFPAY | PROVIDERS: PCP Registered Nurse; Visit Provider Thoracic Surgery (Cardiothoracic Vascular Surgery) | DX: E11.622 Type 2 diabetes mellitus with other skin ulcer (principal); E11.621 Type 2 diabetes mellitus with foot ulcer; I96 Gangrene, not elsewhere classified; L97.811 Non-pressure chronic ulcer of other part of right lower leg limited to breakdown of skin; L97.822 Non-pressure chronic ulcer of other part of left lower leg with fat layer exposed; L97.512 Non-pressure chronic ulcer of other part of right foot with fat layer exposed; L97.821 Non-pressure chronic ulcer of other part of left lower leg limited to breakdown of skin; L97.521 Non-pressure chronic ulcer of other part of left foot limited to breakdown of skin | CPT/HCPCS: 11043; 97597; A6252 ==

== ENCOUNTER → 2022-01-24 10:56 | Outpatient (BNVA) | payer MEDICARE, MEDICAID, SELFPAY | PROVIDERS: PCP Registered Nurse; Visit Provider Thoracic Surgery (Cardiothoracic Vascular Surgery) | DX: E11.621 Type 2 diabetes mellitus with foot ulcer (principal); L97.821 Non-pressure chronic ulcer of other part of left lower leg limited to breakdown of skin; I96 Gangrene, not elsewhere classified; L97.822 Non-pressure chronic ulcer of other part of left lower leg with fat layer exposed; L97.512 Non-pressure chronic ulcer of other part of right foot with fat layer exposed; L97.421 Non-pressure chronic ulcer of left heel and midfoot limited to breakdown of skin | CPT/HCPCS: 11043; 97597; A6252 ==

== ENCOUNTER 2024-02-07 23:19 | Inpatient (IN) | payer MEDICARE, MEDICAID, SELFPAY ==
[2024-02-07 23:24] VITALS: BP 111/62; PULSE 72; RESP 18; TEMP 36.9; O2SAT 96; BMI 34.9
--- NOTE | 2024-02-07 23:31 | ED_ITS ---
HPI - Extremity Problem 2 General: Chief complaint: Extremity Problem,Nontraumatic Stated complaint: rt leg swelling and pain Time Seen by Provider: 02/07/24 23:21 History of Present Illness: 63-year-old man with a history of diabet es, diabetic neuropathy, left BKA, who presents from home by ambulance with right lower extremity redness swelling and appearance of infection. He says he does not feel anything has no pain there. No known fevers. No altered mental status. No focal motor deficits. No chest pain. No shortness of breath. No abdominal pain. No nausea or vomiting Review of Systems 2 Narrative: Constitutional symptoms: Negative except as documented in HPI. Skin symptoms: Negative except as documented in HPI. Eye symptoms: Negative except as documented in HPI. ENMT symptoms: Negative except as documented in HPI. Respiratory symptoms: Negative except as documented in HPI. Cardiovascular symptoms: Negative except as documented in HPI. Gastrointestinal symptoms: Negative except as documented in HPI. Genitourinary symptoms: Negative except as documented in HPI. Musculoskeletal symptoms: Negative except as documented in HPI. Neurologic symptoms: Negative except as documented in HPI. Psychiatric symptoms: Negative except as documented in HPI. Endocrine symptoms: Negative except as documented in HPI. Physical Exam 2 Narrative: EXAM NARRATIVE: General: Alert, no acute distress. Skin: Warm, dry. Patient has diffuse erythematous skin on his right leg starting in his great toe going up his leg. There is some denuded skin. Feels warm. Head: Normocephalic, atraumatic. Neck: Supple, trachea midline. Eye: Extraocular movements are intact. Ears, nose, mouth and throat: mucosa moist. Cardiovascular: Regular, Normal peripheral perfusion. Respiratory: Lungs are clear to auscultation, respirations are non-labored, breath sounds are equal, Symmetrical chest wall expansion. Gastrointestinal: Soft, Nontender, Non distended, Normal bowel sounds. Musculoskeletal: Left BKA. Neurological: Alert and oriented, No focal neurological deficit observed. Psychiatric: Cooperative, appropriate mood & affect. Course 2 Vital Signs: Vital signs: Vital Signs Temperature 98.4 F 02/07/24 23:24 Pulse Rate 71 02/08/24 01:02 Respiratory Rate 16 02/08/24 01:02 Blood Pressure 111/58 02/08/24 01:02 Pulse Oximetry 98 02/08/24 01:02 Oxygen Delivery Me thod Room Air 02/07/24 23:24 MDM - Extremity (Nontraumatic) Medical Decision Making Medical decision making: Differential diagnosis including but not limited to and based on the above HPI, review of systems and physical exam: In this patient with cellulitis and severe diabetes and neuropathy he had a previous BKA I am ordering ESR, CRP a white count. Basic lab work. Will need renal function for antibiotics. Also ordered cultures and a lactate. Orders placed to evaluate differential diagnosis based on the above differential, HPI and physical exam Lab Review: Laboratory results were reviewed and interpreted by myself the emergency room physician. Patient has a white count of 3.2. Hemoglobin is 11.5. BUN and creatinine are 7 and 0.5. ESR is normal. CRP is elevated at 19. I reviewed the patient's medical record. Reexamination: Patient remained stable. No increased work of breathing. No altered mental status. No focal motor deficits. No change in the cellulitis. Begin now Consultation: I spoke with Dr. Montague with the hospitalist service who agrees with admission. Assessment and plan: Diabetic foot infection Cellulitis ?IV Zyvox and cefepime given. I will do this prior to lab work coming back. Zyvox for gram-positive/MRSA. Both antibiotics are not nephrotoxic. ?IV morphine and Zofran. -I discussed the patient with the hospitalist on-call who is admitting the patient. - Discussed findings and plan with patient. Answered any questions. - All laboratory values were reviewed and interpreted personally by myself, the ER physician - All imaging was reviewed and interpreted personally by myself, the ER physician. - Evaluation and treatment of this problem were appropriate in the emergency setting Lab Data 02/08/24 00:01 02/08/24 00:01 Laboratory Results WBC 3.21 10^3/uL (3.29-11.43) L 02/08/24 00:01 RBC 4.00 10^6/uL (3.85-5.65) 02/08/24 00:01 Hgb 11.50 g/dL (11.27-16.99) 02/08/24 00:01 Hct 36.2 % (37-53) L 02/08/24 00:01 MCV 90.5 fl (82-101) 02/08/24 00:01 MCH 28.8 pg (27-33) 02/08/24 00:01 MCHC 31.8 g/dL (30-55) 02/08/24 00:01 RDW 15.3 % (12.1-15.1) H 02/08/24 00:01 Plt Count 111 10^3/cmm (157-399) L 02/08/24 00:01 MPV 10.3 fL (7.4-10.4) 02/08/24 00:01 Neut % (Auto) 45.8 % 02/08/24 00:01 Lymph % (Auto) 32.4 % 02/08/24 00:01 Ashley % (Auto) 18.7 % 02/08/24 00:01 Eos % (Auto) 2.2 % 02/08/24 00:01 Baso % (Auto) 0.3 % 02/08/24 00:01 Neut # (Auto) 1.47 10^3/uL (1.8-7.7) L 02/08/24 00:01 Lymph # (Auto) 1.0 10^3/uL (0.8-4.8) 02/08/24 00:01 Ashley # (Auto) 0.6 10^3/uL (0.2-0.9) 02/08/24 00:01 Eos # (Auto) 0.1 10^3/uL (0.0-0.8) 02/08/24 00:01 Baso # (Auto) 0.0 10^3/uL (0.0-0.1) 02/08/24 00:01 Nucleated RBC % (auto) 0 % 02/08/24 00:01 Nucleated RBCs # 0.0 /100WBC 02/08/24 00:01 ESR 6 mm/hr (0-10) 02/08/24 00:01 Sodium 138 mmol/L (136-145) 02/08/24 00:01 Potassium 4.6 mmol/L (3.5-5.1) 02/08/24 00:01 Chloride 101 mmol/L (98-107) 02/08/24 00:01 Carbon Dioxide 28 mmol/L (22-29) 02/08/24 00:01 Anion Gap 13.6 (5-19) 02/08/24 00:01 BUN 7 mg/dL (8-23) L 02/08/24 00:01 Creatinine 0.5 mg/dL (0.7-1.2) L 02/08/24 00:01 GFR Calculation 168.5 mL/min (90-130) H 02/08/24 00:01 Glucose 210 mg/dL (65-115) H 02/08/24 00:01 Calculated Osmolality 290 mOsm/kg (285-295) 02/08/24 00:01 Lactic Acid 2.6 mmol/L (0.5-2.2) H 02/08/24 00:01 Calcium 8.1 mg/dL (8.5-10.5) L 02/08/24 00:01 Total Bilirubin 0.4 mg/dL (0.15-1.2) 02/08/24 00:01 AST 6 U/L (0-40) 02/08/24 00:01 ALT 7 U/L (0-41) 02/08/24 00:01 Alkaline Phosphatase 74 U/L (40-130) 02/08/24 00:01 C-Reactive Protein 17.1 mg/L (0.0-4.9) H 02/08/24 00:01 Total Protein 5.1 g/dL (6.6-8.7) L 02/08/24 00:01 Albumin 3.1 g/dL (3.5-5.2) L 02/08/24 00:01 Globulin 2.0 g/dL (1.3-4.6) 02/08/24 00:01 No radiology studies performed this visit Discharge Plan Discharge Patient Disposition: Admitted As Inpatient Clinical Impression: Diabetic foot infection Cellulitis Qualifiers: Site of cellulitis: extremity Site of cellulitis of extremity: lower extremity Laterality: right Qualified Code(s): L03.115 - Cellulitis of right lower limb Condition: Stable Coding 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
[2024-02-08] VITALS (8 sets, daily range): BP systolic 105–124; BP diastolic 58–81; PULSE 56–72; RESP 16–18; TEMP 36.4–37.1; O2SAT 93–98; BMI 40.1
[2024-02-08 00:22] LABS: Basophils % 0.3 %; Eosinophils # 0.1 10^3/uL (0.0-0.8); Eosinophils % 2.2 %; Hematocrit 36.2 % (37-53); Lymphocytes % 32.4 %; Mean Corpuscular HGB Conc 31.8 g/dL (30-55); Mean Corpuscular Hemoglobin 28.8 pg (27-33); Mean Corpuscular Volume 90.5 fl (82-101); Mean Platelet Volume 10.3 fL (7.4-10.4); Monocytes # 0.6 10^3/uL (0.2-0.9); Monocytes % 18.7 %; Neutrophils # 1.47 10^3/uL (1.8-7.7); Neutrophils % 45.8 %; Nucleated Red Blood Cells % 0 %; Platelet Count 111 10^3/cmm (157-399); Red Cell Distribution Width 15.3 % (12.1-15.1); White Blood Count 3.21 10^3/uL (3.29-11.43)
[2024-02-08 00:37] LABS: Erythrocyte Sedimentation Rate 6 mm/hr (0-10)
[2024-02-08] MEDS: ondansetron 2 mg/ML SDV 2 mL 4 MG IVP (00:49)
[2024-02-08] MEDS: morphine 4 mg/mL SDV 1 mL IVP (00:50)
[2024-02-08 00:51] LABS: Alanine Aminotransferase 7 U/L (0-41); Albumin Level 3.1 g/dL (3.5-5.2); Alkaline Phosphatase 74 U/L (40-130); Anion Gap 13.6 (5-19); Aspartate Amino Transferase 6 U/L (0-40); Blood Urea Nitrogen 7 mg/dL (8-23); C Reactive Protein 17.1 mg/L (0.0-4.9); Calcium 8.1 mg/dL (8.5-10.5); Carbon Dioxide 28 mmol/L (22-29); Chloride 101 mmol/L (98-107); Creatinine Clr Calc Pharmacy 202.3034; Glomerular Filtration Rate 168.5 mL/min (90-130); Glucose 210 mg/dL (65-115); Osmolality Calculated 290 mOsm/kg (285-295); Potassium 4.6 mmol/L (3.5-5.1); Sodium 138 mmol/L (136-145); Total Bilirubin 0.4 mg/dL (0.15-1.2); Total Protein 5.1 g/dL (6.6-8.7)
[2024-02-08] MEDS: cefepime 2,000 MG in sodium chloride 0.9% (plus) 50 ML 100 MG IV ×2 (00:51→12:07)
[2024-02-08 00:52] LABS: Lactic Sepsis W/Reflex 2.6 mmol/L (0.5-2.2)
[2024-02-08] MEDS: linezolid premix 600 MG/300 ML PREMIX 300 MG IV ×3 (01:14→16:22)
--- NOTE | 2024-02-08 01:36 | P.HP_ITS ---
Providers/Chief Complaint 2 Admitting Physician: Bethanie Montague MD Primary Care Provider: Larissa Munoz Chief Complaint: rt leg swelling and pain History of Present Illness Mr Avel Hurley is a 63 year-old man with a history of diabetes,hypertension , left BKA, who presents for further evaluation of worsening right lower extremity redness and swelling . patient isn't very clear on when he noticed the symptoms. He usually wears a ? compression device and on removal he noticed the swelling and redness. He has not felt sensation in the right lower extremity for several years. He denies fevers, chills, abdominal pain, nausea, vomiting , chest pain, shortness of breath or any other symptoms. Patient is not sure of his home medications. He takes antihypertensive and insulin. Review of Systems 2 Narrative: Constitutional symptoms: Negative except as documented in HPI. Skin symptoms: Negative except as documented in HPI. Eye symptoms: Negative except as documented in HPI. ENMT symptoms: Negative except as documented in HPI. Respiratory symptoms: Negative except as documented in HPI. Cardiovascular symptoms: Negative except as documented in HPI. Gastrointestinal symptoms: Negative except as documented in HPI. Genitourinary symptoms: Negative except as documented in HPI. Musculoskeletal symptoms: Negative except as documented in HPI. Neurologic symptoms: Negative except as documented in HPI. Psychiatric symptoms: Negative except as documented in HPI. Endocrine symptoms: Negative except as documented in HPI. Medications/Allergies Home Medications Medication Instructions Recorded Confirmed Last Taken Type levofloxacin 500 mg tablet 500 mg PO DAILY infection #10 tabs 01/24/22 Unknown Rx Allergies Allergy/AdvReac Type Severity Reaction Status Date / Time immune globulin,gamma (IgG) Allergy Unknown Verified 02/07/24 23:27 human Influenza Virus Vaccines Allergy Unknown Verified 02/07/24 23:27 whey Allergy unknown Verified 02/07/24 23:27 PFSH Acute 2 PFSH: Medical History (Updated 02/08/24 @ 02:39 by Bethanie Montague MD) Hypertension Type 2 diabetes mellitus Surgical History (Updated 02/08/24 @ 02:40 by Bethanie Montague MD) History of left below knee amputation Social History (Updated 02/08/24 @ 02:41 by Bethanie Montague MD) Additional social history: He denies alcohol, tobacco or illicit drug use Vitals/I&O/Wt Last Vital Signs Temp 98.4 F 02/07/24 23:24 Pulse 71 02/08/24 01:02 Resp 16 02/08/24 01:02 BP 111/58 02/08/24 01:02 Pulse Ox 98 02/08/24 01:02 O2 Del Method Room Air 02/07/24 23:24 02/07/24 02/07/24 02/08/24 14:59 22:59 06:59 Intake Total 50 / 50 Balance 50 / 50 Weight last 48 hrs Weight 117.027 kg Physical Exam 2 Const: COMMON NORMALS: no acute distress, patient oriented x3 and alert HENMT: COMMON NORMALS: normocephalic, atraumatic, external ears normal, Normal external nose present, moist oral mucous membranes and oropharynx normal HEAD & SCALP: normocephalic and atraumatic NOSE: Normal external nose present E XTERNAL EAR: Yes external ears normal Eye: COMMON NORMALS: Equal, round and reactive pupils present, EOMs intact bilaterally, conjunctivae normal and no scleral icterus CONJUNCTIVA: Yes conjunctivae normal PUPIL: Yes Equal, round and reactive pupils present Neck/C-Spine: COMMON NORMALS: full ROM, no lymphadenopathy and no JVD Chest: COMMONS NORMALS: normal inspection of the chest Resp: COMMON NORMALS: normal respiratory effort and clear to auscultation bilaterally AUSCULTATION: clear to auscultation bilaterally OTHER: No wheezes or crcakles Cardio: COMMON NORMALS: no JVD, regular rate, regular rhythm, S1 normal heart sound present and S2 normal heart sound present RATE: regular rate RHYTHM: regular rhythm HEART SOUNDS: S1 normal heart sound present and S2 normal heart sound present GI: COMMON NORMALS: Normal to inspection, nondistended, normoactive bowel sounds present, Soft to palpation and non-tender PALPATION: Yes Soft to palpation Extremity: NARRATIVE EXTREMITY EXAM: Left BKA Left leg and foot swelling with erythema Neuro: COMMON NORMALS: patient oriented x3 SENSORIUM/ORIENTATION: Yes alert OTHER: No gross focal deficits Data 02/08/24 04:52 02/08/24 04:52 Micro: Microbiology 02/08/24 00:08 Blood Culture - Preliminary Blood SPECIMEN COLLECTED 02/08/24 00:01 Blood Culture - Preliminary Blood SPECIMEN COLLECTED A&P Assessment and plan (1) Cellulitis: #Right Lower Extremity Cellulitis #Diabetic Foot Infection -He has mild leukopenia , he is hemodynamically stable , his lactic acid is elevated -Continue cefepime and linezolid started in the ER -Blood cultures ordered -Will consider MRI to evaluate for deeper infection depending on clinical course, also podiatry consult as appropriate -Start IVF, check serial latic acid Qualifiers: Laterality: right Site of cellulitis: extremity Site of cellulitis of extremity: lower extremity Qualified Code(s): L03.115 - Cellulitis of right lower limb (2) Type 2 diabetes mellitus: -Unclear how much insulin patient takes at home -ACHS glucose checks, start sliding scale lispro -Check hBA1c Plan Patient is unsure of his home medications. Med rec not done . Attestations 2 Medical Necessity Statement*: Patient with cellulitis, diabetic foot infection requires inpatient care for IV antibiotics . His care will cross greater than 2 midnights Coding Level of Care Code Acute Code for [facility] Diagnoses Cellulitis L03.115 Laterality: right Site of cellulitis: extremity Site of cellulitis of extremity: lower extremity Type 2 diabetes mellitus E11.9
[2024-02-08 02:03] LABS: Reflex Lactate Order REFLEX LACTIC ORDERD
[2024-02-08] MEDS: lactated ringers 1,000 ML 100 ML IV (03:22)
[2024-02-08] MEDS: cefepime 1,000 MG in sodium chloride 0.9% (plus) 50 ML 100 MG IV (03:38)
[2024-02-08] MEDS: enoxaparin 40 mg/0.4 mL Syringe SUBCUT (03:43)
--- NOTE | 2024-02-08 04:56 | PC.NURSE ---
Family will be here in the morning with all medication lists, med rec will need to be done then
[2024-02-08 05:32] LABS: Estmated Average Glucose 217; Hemoglobin A1C 9.2 % (4.0-6.0)
[2024-02-08 05:35] LABS: Lactic Acid level (Lactate) 3.3 mmol/L (0.5-2.2)
[2024-02-08 05:39] LABS: Albumin Level 3.1 g/dL (3.5-5.2); Anion Gap 15.7 (5-19); Blood Urea Nitrogen 7 mg/dL (8-23); Carbon Dioxide 23 mmol/L (22-29); Chloride 101 mmol/L (98-107); Glomerular Filtration Rate 168.5 mL/min (90-130); Glucose 233 mg/dL (65-115); Potassium 3.7 mmol/L (3.5-5.1); Sodium 136 mmol/L (136-145)
[2024-02-08 05:40] LABS: Creatinine Clr Calc Pharmacy 217.1234
[2024-02-08 05:47] LABS: Hematocrit 40.6 % (37-53); Mean Corpuscular Hemoglobin 28.8 pg (27-33); Mean Corpuscular Volume 92.9 fl (82-101); Mean Platelet Volume 11.4 fL (7.4-10.4); Platelet Count 115 10^3/cmm (157-399); Red Blood Count 4.37 10^6/uL (3.85-5.65); Red Cell Distribution Width 15.2 % (12.1-15.1); White Blood Count 3.35 10^3/uL (3.29-11.43)
[2024-02-08 05:48] LABS: Absolute Eosinophils 0.1 10^3/cmm (0.0-0.7); Absolute Neutrophil 1.5 10^3/cmm (1.4-6.5); Absolute Segmented Neutrophil 1.4 10/cmm (1.6-7.1); Band Neutrophils Absolute 0.1 10^3/cmm (0.0-1.2); Eosinophils 4 %; Lymphocytes 32 %; Monocytes Absolute 0.6 10^3/cmm (0.1-0.6); Platelet Estimate Decreased (Normal); Segmented Neutrophils 42 %; Total Cells Counted 100 (0-100)
[2024-02-08 06:33] LABS: Glucose Point of Care 233 mg/dL (70-110)
[2024-02-08] MEDS: insulin lispro 100 unit/1 mL SUBCUT ×4 (07:58→22:10)
--- NOTE | 2024-02-08 09:13 | PC.PHAR ---
PHARMACY FAXING MED LIST
--- NOTE | 2024-02-08 09:52 | PC.PHAR ---
PT STATES NURSE FROM [facility] SETS UP MEDICATIONS. PHONED [facility] WHO STATES HE IS NOT THEIR CLIENT. PHARMACY FAXED CURRENT MEDICATION LIST. PT DID SAY HE TOOK MEDS YESTERDAY PRIOR TO COMING IN.
[2024-02-08 11:50] LABS: Glucose Point of Care 181 mg/dL (70-110)
--- NOTE | 2024-02-08 12:17 | PM.MISC ---
Miscellaneous Note Note: Seen this morning. Check venous Dopplers bilateral lower extremities Consult podiatry Check ESR, CRP Check CT right lower extremity and foot with contrast to rule out deep infection Hemoglobin A1c 9.2. Will need tight glucose control.
--- NOTE | 2024-02-08 12:19 | CTR_ITS ---
PROCEDURE INFORMATION: Exam: CT Right Lower Extremity Without Contrast; Lower Leg Exam date and time: 02/08/2024 2:30 PM Age: 63 years old Clinical indication: Screening exam; R/O deep infection TECHNIQUE: Imaging protocol: CT of the right lower extremity without contrast was performed. Exam focused on the lower leg. Radiation optimization: All CT scans at this facility use at least one of these dose optimization techniques: automated exposure control; mA and/or kV adjustment per patient size (includes targeted exams where dose is matched to clinical indication); or iterative reconstruction. COMPARISON: CT foot RT w con [id number] 02/08/2024 2:30 PM RADIATION DOSE METRICS: Total DLP (mGy-cm): 746.69 FINDINGS: Bones/joints: Images extend from the distal femoral metadiaphysis through the midfoot. Moderate to severe medial femorotibial compartment narrowing is noted. Small to moderate osteophytes arise from the distal femur, proximal tibia and fibula and patella. Moderate superior inferior patellar pole enthesophyte formation is present. There is a small knee joint effusion. A rounded focus of stippled sclerotic density measuring approximately 1.1 cm in diameter along the anterior aspect of the lateral femoral condyle on series 9, image 35 is present. Mild benign-appearing enthesopathy of the posterior tibial shaft is present for example on series 8, image 120. No acute fracture. No erosive changes. Soft tissues: There is diffuse extensive muscular atrophy. Suln-gz-[id number] subcutaneous edema in the right lower leg is greatest proximally, associated with mild lateral skin thickening on series 8, image 67. No discrete soft tissue fluid collection is present. No soft tissue gas is identified. Vasculature: Atherosclerotic calcifications are present. CT/CT lower leg RT w con [id number] IMPRESSION: 1. Subcutaneous edema in the right lower extremity is noted which may be related to cellulitis, noninfectious inflammatory changes or venous stasis. No evidence of soft tissue gas or soft tissue fluid collection. 2. Right knee primary osteoarthritic changes and small joint effusion. 3. A region of stippled sclerotic density in the lateral femoral condyle is noted with benign features suggestive of a hemangioma. 4. Extensive muscular atrophy. 5. Please refer to the separate right lower extremity CT report from the same day for further discussion of ankle and foot findings.
--- NOTE | 2024-02-08 12:19 | CTR_ITS ---
PROCEDURE INFORMATION: Exam: CT Right Lower Extremity With Contrast, Foot Exam date and time: 02/08/2024 2:30 PM Age: 63 years old Clinical indication: Other: R/O deep infection TECHNIQUE: Imaging protocol: CT of the right lower extremity with intravenous contrast was performed. Exam focused on the foot. Radiation optimization: All CT scans at this facility use at least one of these dose optimization techniques: automated exposure control; mA and/or kV adjustment per patient size (includes targeted exams where dose is matched to clinical indication); or iterative reconstruction. Contrast material: OMNI 350; Contrast volume: 100 ml; Contrast route: INTRAVENOUS (IV); COMPARISON: CT lower leg RT w con [id number] 02/08/2024 2:30 PM RADIATION DOSE METRICS: Total DLP (mGy-cm): 746.69 FINDINGS: Bones/joints: Images extend from the distal shafts of the tibia and fibula through the toes. Deformity of the proximal phalanx of the great toe is consistent with an old healed fracture. No evidence of acute fracture. Small osteophytes are present at the 1st metatarsophalangeal joint. Mild osteophyte formation is noted at the tarsal metatarsal articulations. Pshw-rl-rvrmjqua osteophyte formation is noted at the midfoot, tibiotalar posterior subtalar articulations. Moderate dorsal and plantar calcaneal enthesophyte formation is present. A circumscribed region of lucency in the mid inferior calcaneal body measuring approximately 1 cm in diameter on series 9, image 52 is present with a central density of fat and a thin sclerotic rim. Moderate enthesopathy of the distal fibula and the distal fibular-tibial syndesmosis is noted. Well corticated old-appearing fracture fragments adjacent to the inferior margin of the medial malleolus are present. Soft tissues: Diffuse severe muscular atrophy is noted in the visualized lower leg, ankle and foot. Rljh-it-czuwagmm subcutaneous edema is greatest along the lateral aspect of the foot and ankle region and dorsum of the foot. No discrete soft tissue fluid collection is identified. No soft tissue gas is identified. A full-thickness tear of the proximal peroneus brevis tendon is suspected. CT/CT foot RT w con [id number] IMPRESSION: 1. Subcutaneous edema in the right lower leg, ankle and foot region is greatest laterally without evidence of a discrete fluid collection or soft tissue gas. This edema may be related to cellulitis, noninfectious inflammatory changes or venous stasis. 2. No CT evidence of osteomyelitis. 3. Old fracture of the proximal phalanx of the great toe. 4. Primary osteoarthritic changes. 5. Old ununited fracture fragments adjacent to the inferior margin of the medial malleolus. 6. 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 7. Extensive diffuse muscular atrophy. 8. Probable full-thickness tear of the proximal peroneus brevis tendon. MRI of the ankle may be useful for further assessment as clinically indicated.
--- NOTE | 2024-02-08 14:22 | USR_ITS ---
PROCEDURE INFORMATION: Exam: US Duplex Right Lower Extremity Veins, Limited Exam date and time: 02/08/2024 4:19 PM Age: 63 years old Clinical indication: Pain; Leg, lower; Right; Additional info: R/O dvt TECHNIQUE: Imaging protocol: Real-time duplex ultrasound of the right extremity with 2-D wright scale, color Doppler flow and spectral waveform analysis including responses to compression and other maneuvers (when performed) with image documentation. Limited exam was focused on the right lower extremity veins. COMPARISON: CT foot RT w con [id number] 02/08/2024 2:30 PM FINDINGS: Right deep veins: Unremarkable. The common femoral, femoral, proximal profunda femoral and popliteal veins are patent without thrombus. Normal Doppler waveforms. Normal compressibility and/or augmentation response. Superficial veins: Greater saphenous vein at the saphenofemoral junction is patent without thrombus. Soft tissues: Unremarkable. US/[place] [id number] IMPRESSION: No evidence of deep vein thrombosis in the right lower extremity.
--- NOTE | 2024-02-08 14:22 | P.CONIM_ITS ---
Providers/Reason For Consult 2 Consulting Physician/Specialty*: Dr. Jeovanny Gillespie DPM/Podiatry Reason for Consult*: Right lower extremity erythema and edema Attending Physician: Maira E Young MD Primary Care Provider: Larissa Munoz History of Present Illness History of Present Illness Patient is a 63-year-old male with history of type 2 diabetes, left BKA who presented to the emergency department via ambulance from home with complaint of redness and swelling to the right lower extremity. Patient states that he does not have any pain. He states that nothing like this has ever happened to his right lower extremity. He did undergo left below the knee amputation for nonhealing chronic ulcerations to the left lower extremity. Patient denies any drainage coming from the right lower extremity. He denies any fever, chills, nausea, vomiting. Patient endorses neuropathy to the right lower extremity and states that he cannot feel much. Patient does endorse usage of compression therapy to right lower extremity. During today's encounter, patient was very tired and docile. Had to be awoken multiple times to continue conversation. Review of Systems 2 General: Reports: 10 or more systems reviewed and unremarkable except in HPI and below Const: Denies: fever(s), chills, body aches or change in appetite Eyes: Denies: change in vision or blurry vision Card: Denies: chest pain, palpitations or irregular heart rhythm Resp: Denies: dyspnea GI: Denies: abdominal pain, nausea, vomiting or diarrhea Neuro: Reports: numbness in extremities Medications/Allergies Home Medications Medication Instructions Recorded Confirmed Last Taken Type acyclovir 400 mg tablet 400 mg PO BID 02/08/24 02/08/24 02/07/24 History albuterol sulfate 90 mcg/actuation 2 puff inhalation Q4H PRN 02/08/24 02/08/24 Unknown History aerosol inhaler (Ventolin HFA) Shortness Of Breath amitriptyline 100 mg tablet 100 mg PO BEDTIME 02/08/24 02/08/24 02/07/24 History buspirone 30 mg tablet 30 mg PO TID 02/08/24 02/08/24 02/07/24 History cyclobenzaprine 10 mg tablet 10 mg PO TID PRN MUSCLE SPASMS 02/08/24 02/08/24 Unknown History dexamethasone 4 mg tablet See Rx Instructions .Route .COMPLEX 02/08/24 02/08/24 Unknown History diazepam 5 mg tablet 5 mg PO DAILY 02/08/24 02/08/24 02/07/24 History duloxetine 60 mg capsule,delayed 60 mg PO BID 02/08/24 02/08/24 02/07/24 History release furosemide 40 mg tablet 40 mg PO DAILY 02/08/24 02/08/24 02/07/24 History gabapentin 300 mg capsule 600 mg PO QID 02/08/24 02/08/24 02/07/24 History hydroxyzine HCl 50 mg tablet 100 mg PO BEDTIME 02/08/24 02/08/24 02/07/24 History insulin regular hum U-500 conc 500 120 unit SUBCUT TID 02/08/24 02/08/24 Unknown History unit/mL(3 mL) subcut pen (Humulin R U-500 (Conc) Insulin Kwikpen) lenalidomide 25 mg capsule 25 mg PO DIRECTED 02/08/24 02/08/24 Unknown History meloxicam 15 mg tablet 15 mg PO DAILY PRN PAIN AND 02/08/24 02/08/24 02/07/24 History INFLAMMATION metformin 1,000 mg tablet 1,000 mg PO BID 02/08/24 02/08/24 02/07/24 History metoprolol tartrate 50 mg tablet See Rx Instructions .Route .COMPLEX 02/08/24 02/08/24 02/07/24 History omeprazole 40 mg capsule,delayed 40 mg PO QAM 02/08/24 02/08/24 02/07/24 History release ondansetron HCl 4 mg tablet 4 mg PO Q6H PRN Nausea 02/08/24 02/08/24 Unknown History oxycodone-acetaminophen 10 mg-325 See Rx Instructions .Route .COMPLEX 02/08/24 02/08/24 02/07/24 History mg tablet pentoxifylline 400 mg 400 mg PO TID 02/08/24 02/08/24 Unknown History tablet,extended release potassium chloride 20 mEq 40 meq PO BID 02/08/24 02/08/24 02/07/24 History tablet,extended release(part/cryst) pravastatin 40 mg tablet 40 mg PO DAILY 02/08/24 02/08/24 02/07/24 History spironolactone 50 mg tablet See Rx Instructions .Route .COMPLEX 02/08/24 02/08/24 Unknown History topiramate 100 mg tablet 100 mg PO DAILY 02/08/24 02/08/24 02/07/24 History trazodone 150 mg tablet 150 mg PO BEDTIME 02/08/24 02/08/24 02/07/24 History verapamil 120 mg tablet,extended 120 mg PO DAILY 02/08/24 02/08/24 02/07/24 History release Allergies Allergy/AdvReac Type Severity Reaction Status Date / Time immune globulin,gamma (IgG) Allergy Unknown Verified 02/07/24 23:27 human Influenza Virus Vaccines Allergy Unknown Verified 02/07/24 23:27 whey Allergy unknown Verified 02/07/24 23:27 Current Medications Generic Name Dose Route Start Last Admin Trade Name Freq PRN Reason Stop Dose Admin Enoxaparin Sodium 40 mg 02/08/24 02:30 02/08/24 03:43 Enoxaparin 40 Mg/0.4 Ml Syringe SUBCUT 40 mg Q24H ERIK Administration Linezolid 600 mg in 300 mls @ 300 mls/hr 02/08/24 02:30 02/08/24 04:51 Zyvox Premix IV Infused Q12H ERIK Infusion Protocol Cefepime HCl 2,000 mg/ Sodium 50 mls @ 100 mls/hr 02/08/24 12:00 02/08/24 12:07 Chloride IV 100 mls/hr Q12H ERIK Administration Protocol Insulin Human Lispro 0 unit 02/08/24 08:00 02/08/24 12:07 Insulin Lispro 100 Unit/1 Ml SUBCUT 8 unit WM&BEDTIME ERIK Administration Protocol PFSH Acute 2 PFSH: Medical History (Updated 02/08/24 @ 20:15 by Jeovanny Gillespie DPM) Hypertension Type 2 diabetes mellitus Surgical History (Updated 02/08/24 @ 20:06 by Jeovanny Gillespie DPM) History of left below knee amputation Social History (Updated 02/08/24 @ 02:41 by Bethanie Montague MD) Additional social history: He denies alcohol, tobacco or illicit drug use Vitals/I&O/Wt Last Vital Signs Temp 97.6 F 02/08/24 12:02 Pulse 56 L 02/08/24 12:02 Resp 18 02/08/24 12:02 BP 114/75 02/08/24 12:02 Pulse Ox 96 02/08/24 12:02 O2 Del Method Room Air 02/08/24 12:02 02/07/24 02/08/24 02/08/24 22:59 06:59 14:59 Intake Total 820 / 820 720 / 720 Output Total 1000 / 1000 Balance 820 / 820 -280 / -280 Weight last 48 hrs Weight 295 lb 11.2 oz Weight 295 lb 11.2 oz Weight 258 lb Physical Exam 2 Narrative: BELOW IS A FOCUSED LOWER EXTREMITY EXAM GENERAL: A&O x 3 VASCULAR: Right DP/PT pulses strong biphasic on handheld doppler DERMATOLOGICAL: Erythema and edema to right lower extremity. Temperature is within normal limits, same as contralateral amputation site. Patchy erythema diffusely throughout the right lower extremity with ecchymoses appearance. Small superficial wound to anterior aspect of right tibia. No drainage. No soft tissue crepitus. No area of underlying fluctuance or signs of deep space abscess. MUSCULOSKELETAL: Pain with palpation of right posterior calf NEUROLOGICAL: Neurological sensation to the affected foot and ankle is present through L4-S1 dermatomes with no hyper/hypoesthesias, negative Tinel or Valleix's sign IMAGING: CT scan of right lower extremity, ankle and foot revealed no accumulation of fluid or abscess. Full-thickness tear of proximal peroneus brevis tendon. Venous stasis changes. No subcutaneous emphysema Data 02/08/24 04:52 02/08/24 04:52 Micro: Microbiology 02/08/24 00:08 Blood Culture - Preliminary Blood SPECIMEN COLLECTED 02/08/24 00:01 Blood Culture - Preliminary Blood SPECIMEN COLLECTED A&P Assessment and plan (1) Venous stasis dermatitis: (2) Type 2 diabetes mellitus: (3) History of left below knee amputation: (4) Peripheral vascular disease: Plan -Right lower extremity erythema and edema -Labs and vitals reviewed -WBC 3.35 -ESR 6 -CRP 17.1 -HR 71 -RR 16 -Tmax 98.4 -Cultures blood culture NGTD -Abx cefepime/linezolid -Diet: Okay for diet -No surgical intervention by podiatry during this admission. Patient has venous stasis changes to the right lower extremity. No drainable accumulation of fluid or abscess. CT scan showed incidental finding of peroneus brevis probable full- thickness tear. MRI pending to evaluate extent of tear. This can affect the contracture of the right lower extremity which will predispose patient to further ulceration. However, no surgical intervention is warranted during this admission even with peroneus brevis tear. This can be managed in the outpatient setting likely with bracing. -Duplex ultrasound was negative for DVT -MRI pending -Pain Mgmt: Per primary team -Weight bearing: No weightbearing restrictions -Dressings: Hydrofera Blue applied to anterior castellano superficial wound with compressive dressing consisting of Vinicio wrap. Reinforce if needed. -Trend labs -Discharge plan: MRI of right lower extremity pending to evaluate extent of peroneus brevis tendon tear. Patient will be okay to discharge home from podiatry standpoint once deemed medically stable. Recommend follow-up within 1 week of discharge from hospital with podiatry (Dr. Gillespie) -Podiatry will continue to follow Consult Attestations 2 Medical Necessity Statement: See hospitalist note Coding Level of Care Code Acute Code for Chg Fwd Diagnoses Venous stasis dermatitis I87.2 Type 2 diabetes mellitus E11.9 History of left below knee amputation Z89.512 Peripheral vascular disease I73.9
[2024-02-08] MEDS: iohexol 350 mg/mL 500 mL Btl (per mL) IV (14:31)
[2024-02-08 16:26] LABS: Glucose Point of Care 145 mg/dL (70-110)
[2024-02-08 21:12] LABS: Glucose Point of Care 232 mg/dL (70-110)
[2024-02-08] MEDS: acetaminophen 325 mg Tablet 650 MG PO (22:03)
[2024-02-09] VITALS (7 sets, daily range): BP systolic 100–159; BP diastolic 62–93; PULSE 61–77; RESP 14–18; TEMP 36.7–37.2; O2SAT 93–98
[2024-02-09] MEDS: cefepime 2,000 MG in sodium chloride 0.9% (plus) 50 ML 100 MG IV ×3 (00:08→23:12)
[2024-02-09] MEDS: enoxaparin 40 mg/0.4 mL Syringe SUBCUT (02:01)
[2024-02-09] MEDS: linezolid premix 600 MG/300 ML PREMIX 300 MG IV ×2 (02:02→14:29)
[2024-02-09 05:21] LABS: Basophils % 0.8 %; Eosinophils # 0.1 10^3/uL (0.0-0.8); Eosinophils % 1.9 %; Hematocrit 34.7 % (37-53); Lymphocytes # 0.9 10^3/uL (0.8-4.8); Lymphocytes % 34.6 %; Mean Corpuscular HGB Conc 32.9 g/dL (30-55); Mean Corpuscular Hemoglobin 29.4 pg (27-33); Mean Corpuscular Volume 89.4 fl (82-101); Mean Platelet Volume 10.8 fL (7.4-10.4); Monocytes # 0.4 10^3/uL (0.2-0.9); Neutrophils # 1.26 10^3/uL (1.8-7.7); Neutrophils % 47.3 %; Nucleated Red Blood Cells % 0 %; Platelet Count 116 10^3/cmm (157-399); Red Blood Count 3.88 10^6/uL (3.85-5.65); Red Cell Distribution Width 15.3 % (12.1-15.1); White Blood Count 2.66 10^3/uL (3.29-11.43)
[2024-02-09 05:46] LABS: Anion Gap 12.8 (5-19); Blood Urea Nitrogen 5 mg/dL (8-23); Calcium 8.3 mg/dL (8.5-10.5); Carbon Dioxide 26 mmol/L (22-29); Chloride 107 mmol/L (98-107); Glomerular Filtration Rate 168.5 mL/min (90-130); Glucose 165 mg/dL (65-115); Osmolality Calculated 295 mOsm/kg (285-295); Potassium 3.8 mmol/L (3.5-5.1); Sodium 142 mmol/L (136-145)
[2024-02-09 05:47] LABS: Magnesium 1.7 mg/dL (1.7-2.3)
[2024-02-09 05:48] LABS: Creatinine Clr Calc Pharmacy 217.1234
[2024-02-09 06:27] LABS: Glucose Point of Care 145 mg/dL (70-110)
[2024-02-09] MEDS: insulin lispro 100 unit/1 mL SUBCUT ×3 (08:49→20:54)
--- NOTE | 2024-02-09 08:58 | PC.CHAP ---
Pastoral Care Encounter/Spiritual Assessment Type of Contact [] Declined drilling engineer visit [] Patient/Family/Request visit [] Outpatient visit [] Follow-up visit [] Physician referral [] Code/Alert [x] Routine visit [] Staff referral [] Actively dying [] Patient sleeping [] Family support [] [] Out of room [] Palliative care [] [] Receiving care in room [] Pre-surgical visit [] Trauma [] Long length of stay [] ICU visit [] Other: Relational/Emotional Strength [x] Patient feels connected with others/family/visitors/staff [] Distress [] Loneliness/isolation [] Abandonment Spirituality of Patient [x] Person of Anh [] Attends Gnosticism of their Anh [x] Believes in Prayer [] Reads Bible or Muslim materials [] There are Spiritual issues to be addressed Note Specialist Interventions [x] Prayer [x] Active listening [] Non-anxious presence [x] Spiritual/emotional support [] Crisis/trauma care [] Spiritual counseling [] Bereavement support [] Provided bereavement packet [] Provided Bible/devotional materials [] Provided toy/stuffed animal, coloring book to patient or family member [] Provided Communion [] Anointing/[place] [] Salvation [x] Completed spiritual assessment [] Other: Impact on Illness or Injury [] Angry [] Fearful [] Anxious [] Often cries [] Exhaustion [] Unable to work [] Unable to attend mandaeism [] Unable to walk/stand [] Unable to read [] Unable to drive [] Unable to eat/drink [] Unable to sleep [] Unable to be with family [] Patient intubated [] Other: Summary Time spent with patient 5 min
[2024-02-09 11:46] LABS: Glucose Point of Care 169 mg/dL (70-110)
--- NOTE | 2024-02-09 12:56 | P.PN_ITS ---
Subjective 2 Subjective: Seen this morning. Awaiting MRI. Vitals/I&O/Wt Last Vital Signs Temp 98.6 F 02/09/24 11:32 Pulse 76 02/09/24 11:32 Resp 16 02/09/24 11:32 BP 124/83 02/09/24 11:32 Pulse Ox 98 02/09/24 11:32 O2 Del Method Room Air 02/09/24 11:32 02/08/24 02/09/24 02/09/24 22:59 06:59 14:59 Intake Total 1830 / 2550 350 / 2900 170 / 170 Output Total 825 / 1825 1000 / 2825 Balance 1005 / 725 -650 / 75 170 / 170 Weight last 48 hrs Weight 134.127 kg Weight 134.127 kg Weight 134.127 kg Weight 117.027 kg Physical Exam 2 Narrative: General: Alert oriented x3, patient seen laying in bed appearing comfortable. He says he is quite sleepy as he did not get good sleep last night. HEENT: Normocephalic, atraumatic, EOMI, Cardio: Regular rate rhythm, normal S1-S2, Respiratory: Good bilateral air entry, no wheezes no rhonchi appreciated GI: Abdomen soft, nontender, nondistended, bowel sounds + Extremities: Right leg in Band-Aid. Data 02/09/24 04:08 02/09/24 04:08 Micro: Microbiology 02/08/24 00:08 Blood Culture - Preliminary Blood NEGATIVE TO DATE 02/08/24 00:01 Blood Culture - Preliminary Blood NEGATIVE TO DATE A&P Assessment and plan (1) Cellulitis: #Right Lower Extremity Cellulitis #Diabetic Foot Infection -He has mild leukopenia , he is hemodynamically stable , his lactic acid is elevated -Continue cefepime and linezolid started in the ER -Blood cultures ordered -Will consider MRI to evaluate for deeper infection depending on clinical course, also podiatry consult as appropriate -Start IVF, check serial latic acid Qualifiers: Laterality: right Site of cellulitis: extremity Site of cellulitis of extremity: lower extremity Qualified Code(s): L03.115 - Cellulitis of right lower limb (2) Type 2 diabetes mellitus: -Unclear how much insulin patient takes at home -ACHS glucose checks, start sliding scale lispro -Check hBA1c (3) Hypertension: (4) Venous stasis dermatitis: (5) Peripheral vascular disease: (6) Diabetic foot infection: (7) History of left below knee amputation: (8) Heart failure: (9) Anxiety: Plan Today's plan 02/08 #Right lower extremity cellulitis #Venous stasis dermatitis #Peroneus brevis tendon rupture, rule out with MRI #Type 2 diabetes mellitus #Anxiety/depression #Chronic heart failure?unspecified #Hypertension ? Continue home medications topiramate verapamil trazodone spironolactone, omeprazole, Lasix, gabapentin, duloxetine, diazepam, amitriptyline, acyclovir. ? Unsure where patient receives his care in the past. ?Will obtain records from his primary care or other hospital. Patient unable to provide me his complete medical history however from medications I can conclude some of his diagnosis. -Continue IV linezolid and cefepime at this time ? Repeat MRI of right foot to rule out extent of tendon injury ? I will hold lenalidomide at this time given active infection ? Check CRP, ESR ? Continue sliding scale insulin high-dose intensity. ? Appreciate results of lower extremity CT, foot CT ? Venous Dopplers ruled out DVT Full code DVT prophylaxis: Lovenox Attestations 2 Medical Necessity Statement*: Patient with cellulitis, diabetic foot infection requires inpatient care for IV antibiotics . His care will cross greater than 2 midnights Diagnoses Cellulitis L03.115 Laterality: right Site of cellulitis: extremity Site of cellulitis of extremity: lower extremity Type 2 diabetes mellitus E11.9 Hypertension I10 Venous stasis dermatitis I87.2 Peripheral vascular disease I73.9 Diabetic foot infection E11.628; L08.9 History of left below knee amputation Z89.512 Heart failure I50.9 Anxiety F41.9
[2024-02-09] MEDS: BuSPIRONE 10 mg Tablet 30 MG PO ×2 (15:04→20:53)
[2024-02-09 17:07] LABS: Glucose Point of Care 257 mg/dL (70-110)
[2024-02-09] MEDS: gabapentin 300 mg Capsule 600 MG PO ×2 (18:37→20:53)
[2024-02-09] MEDS: acyclovir 400 mg Tablet PO (18:37)
[2024-02-09] MEDS: duloxetine 60 mg Capsule PO (18:37)
[2024-02-09 20:27] LABS: Glucose Point of Care 177 mg/dL (70-110)
[2024-02-09] MEDS: amitriptyline 25 mg Tablet 100 MG PO (20:53)
[2024-02-09] MEDS: cyclobenzaprine 10 mg Tablet PO (20:53)
[2024-02-09] MEDS: trazodone 150 mg Tablet PO (20:54)
[2024-02-10] MEDS: linezolid premix 600 MG/300 ML PREMIX 300 MG IV (01:32)
[2024-02-10] MEDS: enoxaparin 40 mg/0.4 mL Syringe SUBCUT (01:33)
[2024-02-10 04:00] VITALS: BP 135/83; PULSE 68; RESP 18; TEMP 36.5; O2SAT 95
[2024-02-10 06:06] LABS: Eosinophils # 0.1 10^3/uL (0.0-0.8); Eosinophils % 3.6 %; Hematocrit 36.5 % (37-53); Lymphocytes # 0.9 10^3/uL (0.8-4.8); Lymphocytes % 41.5 %; Mean Corpuscular HGB Conc 31.5 g/dL (30-55); Mean Corpuscular Hemoglobin 28.8 pg (27-33); Mean Corpuscular Volume 91.3 fl (82-101); Mean Platelet Volume 10.8 fL (7.4-10.4); Monocytes # 0.4 10^3/uL (0.2-0.9); Monocytes % 18.3 %; Neutrophils % 36.2 %; Nucleated Red Blood Cells % 0 %; Platelet Count 128 10^3/cmm (157-399); Red Cell Distribution Width 15.5 % (12.1-15.1); White Blood Count 2.24 10^3/uL (3.29-11.43)
[2024-02-10 06:16] LABS: Glucose Point of Care 131 mg/dL (70-110)
[2024-02-10 06:27] LABS: Neutrophils # 0.81 10^3/uL (1.8-7.7)
[2024-02-10 06:29] LABS: Anion Gap 12.3 (5-19); Blood Urea Nitrogen 4 mg/dL (8-23); Calcium 8.4 mg/dL (8.5-10.5); Carbon Dioxide 25 mmol/L (22-29); Chloride 109 mmol/L (98-107); Glucose 163 mg/dL (65-115); Magnesium 1.7 mg/dL (1.7-2.3); Osmolality Calculated 296 mOsm/kg (285-295); Potassium 3.3 mmol/L (3.5-5.1); Sodium 143 mmol/L (136-145)
[2024-02-10 08:00] VITALS: BP 145/81; PULSE 71; RESP 16; TEMP 36.8; O2SAT 95
[2024-02-10] MEDS: pantoprazole DR 40 mg Tablet PO (08:34)
[2024-02-10] MEDS: FUROsemide 40 mg Tablet PO (08:34)
[2024-02-10] MEDS: duloxetine 60 mg Capsule PO ×2 (08:35→17:22)
[2024-02-10] MEDS: gabapentin 300 mg Capsule 600 MG PO ×4 (08:35→20:23)
[2024-02-10] MEDS: BuSPIRONE 10 mg Tablet 30 MG PO ×3 (08:35→20:23)
[2024-02-10] MEDS: acyclovir 400 mg Tablet PO ×2 (08:35→17:23)
[2024-02-10] MEDS: topiramate 100 mg Tablet PO (08:35)
[2024-02-10] MEDS: atorvastatin 40 mg Tablet 20 MG PO (08:49)
[2024-02-10] MEDS: potassium chloride ER 20 mEq Tablet 40 MEQ PO (12:15)
[2024-02-10] MEDS: vancomycin 2,000 MG/400 ML PIGGYBACK 200 MG IV ×2 (12:16→23:34)
[2024-02-10 12:28] LABS: Glucose Point of Care 167 mg/dL (70-110)
[2024-02-10] MEDS: insulin lispro 100 unit/1 mL SUBCUT ×2 (12:34→17:23)
[2024-02-10] MEDS: cefepime 2,000 MG in sodium chloride 0.9% (plus) 50 ML 100 MG IV ×2 (13:15→23:02)
--- NOTE | 2024-02-10 15:34 | PM.PN ---
Subjective Subjective: Patient sister was here today who is also his caregiver. Patient and sister today tell me that he has a history of multiple myeloma hypertension diabetes and he has metastases to his bones. His oncologist is Dr. Cuadra at [facility]. He always goes to [facility] for all his care at this time wanted to go there as well however was transferred here since there were no beds at [facility]. He was unaware of tendon rupture and foot. 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 He states he is in pain all the time and has not been getting his pain medication here. I confirmed all his home meds with him and he states he is on the list that was given to us. He was recently admitted at [facility] for 10 days when he had pneumonia and then subsequently he was admitted for another 3 days but cannot member the diagnosis at the time. Patient cannot walk and is bedbound. He is able to transfer from bed to wheelchair via [facility]. Today he feels well however has pain. 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 Vitals/I&O/Wt Last Vital Signs Temp 98.2 F 02/10/24 08:00 Pulse 71 02/10/24 08:00 Resp 16 02/10/24 08:00 BP 145/81 02/10/24 08:00 Pulse Ox 95 02/10/24 08:00 O2 Del Method Room Air 02/10/24 08:00 02/10/24 02/10/24 02/10/24 06:59 14:59 22:59 Intake Total 350 / 1300 1170 / 1170 Output Total 900 / 900 900 / 900 Balance -550 / 400 1170 / 1170 -900 / 270 Weight last 48 hrs Weight 131.088 kg Weight 134.127 kg Physical Exam Narrative: General: Alert oriented x3, patient seen laying in bed appearing comfortable. Awake alert and talking. Sister at bedside. HEENT: Normocephalic, atraumatic, EOMI, Cardio: Regular rate rhythm, normal S1-S2, Respiratory: Good bilateral air entry, no wheezes no rhonchi appreciated GI: Abdomen soft, nontender, nondistended, bowel sounds + Extremities: Right leg compression bandage removed. Erythema still present however improved since admission, 4+ pedal edema. No draining wounds today. Data 02/10/24 05:11 02/10/24 05:11 A&P Assessment and plan (1) Cellulitis: #Right Lower Extremity Cellulitis #Diabetic Foot Infection -He has mild leukopenia , he is hemodynamically stable , his lactic acid is elevated -Continue cefepime and linezolid started in the ER -Blood cultures ordered -Will consider MRI to evaluate for deeper infection depending on clinical course, also podiatry consult as appropriate -Start IVF, check serial latic acid Qualifiers: Laterality: right Site of cellulitis: extremity Site of cellulitis of extremity: lower extremity Qualified Code(s): L03.115 - Cellulitis of right lower limb (2) Type 2 diabetes mellitus: -Unclear how much insulin patient takes at home -ACHS glucose checks, start sliding scale lispro -Check hBA1c (3) Hypertension: (4) Venous stasis dermatitis: (5) Peripheral vascular disease: (6) Diabetic foot infection: (7) History of left below knee amputation: (8) Heart failure: (9) Anxiety: (10) Multiple myeloma: (11) Metastasis to bone: (12) Guillain-[place]: (13) Bedbound: (14) Tendon rupture, nontraumatic: Plan Today's plan 02/09 #Right lower extremity cellulitis, pedal edema #Peroneus brevis tendon torn and retracted #Venous stasis dermatitis #Multiple myeloma #Metastases to bone #Bedbound, [facility] dependent for transfers #Type 2 diabetes mellitus #Anxiety/depression #Chronic heart failure?unspecified #Hypertension ? Continue home medications topiramate verapamil trazodone spironolactone, omeprazole, Lasix, gabapentin, duloxetine, diazepam, amitriptyline, acyclovir. ? Patient receives his care at [facility]. We will request records. ? I will continue all his home medications as listed at this time. Confirmed from sister. ? Patient does have a history of multiple myeloma with mets to bone. Will order pain medication for him. ? Will stop linezolid and switch to vancomycin and continue cefepime at this time. ? MRI foot reviewed. Will discuss results with podiatry. ? Continue sliding scale insulin high-dose intensity ? Venous Dopplers rule out DVT ? Continue IV antibiotics. Cellulitis slowly improving. Pedal edema quite significant. Patient does have pulses via Doppler. Full code DVT prophylaxis: Lovenox Attestations Medical Necessity Statement*: Patient with cellulitis, diabetic foot infection requires inpatient care for IV antibiotics . His care will cross greater than 2 midnights Diagnoses Cellulitis L03.115 Laterality: right Site of cellulitis: extremity Site of cellulitis of extremity: lower extremity Type 2 diabetes mellitus E11.9 Hypertension I10 Venous stasis dermatitis I87.2 Peripheral vascular disease I73.9 Diabetic foot infection E11.628; L08.9 History of left below knee amputation Z89.512 Heart failure I50.9 Anxiety F41.9 Multiple myeloma C90.00 Metastasis to bone C79.51 Guillain-[place] G61.0 Bedbound Z74.01 Tendon rupture, nontraumatic M66.9
--- NOTE | 2024-02-10 15:53 | CTR_ITS ---
PROCEDURE INFORMATION: Exam: CTA Abdominal Aorta and Bilateral Lower Extremities (Run-off) With Contrast Exam date and time: 02/10/2024 6:49 PM Age: 63 years old Clinical indication: Other: Diabetic ulcerations/ cellulitis; Prior surgery; Surgery date: 6+ months; Surgery type: Left lower extremity amputation. Patient HX: Multiple wounds and cellulitis to RT foot and ankle. History of diabetic neuropathy and multiple myeloma. Extensive imaging of right lower extremity over last two days. ; Additional info: Right foot wounds, cellulitis TECHNIQUE: Imaging protocol: Computed tomographic angiography of the of the abdominal aorta, pelvis and bilateral lower extremities with contrast. 3D rendering (Not supervised by radiologist): MIP and/or 3D reconstructed images were created by the technologist. Radiation optimization: All CT scans at this facility use at least one of these dose optimization techniques: automated exposure control; mA and/or kV adjustment per patient size (includes targeted exams where dose is matched to clinical indication); or iterative reconstruction. Contrast material: OMNI 350; Contrast volume: 100 ml; Contrast route: INTRAVENOUS (IV); COMPARISON: MR foot RT wo con* [id number] 02/10/2024 11:03 AM RADIATION DOSE METRICS: Total DLP (mGy-cm): 1927.31 FINDINGS: Aorta: There is moderate atherosclerotic calcification of the abdominal aorta without stenosis or aneurysm. Celiac trunk and mesenteric arteries: There is a replaced right hepatic artery which originates from the superior mesenteric artery. Renal arteries: There is a single renal artery on each side without stenosis. Right iliac arteries: No occlusion or significant stenosis. Right femoral/popliteal arteries: There is some mild atherosclerotic calcification of the right superficial femoral artery without stenosis. Right popliteal artery is patent without stenosis. Right infrapopliteal arteries: There is three-vessel runoff below the right knee. The right foot is supplied via patent posterior tibial artery and anterior tibial artery. The right peroneal artery is small and patent to the distal calf. Left iliac arteries: No occlusion or significant stenosis. Left femoral/popliteal arteries: There is some atherosclerotic calcification and mild stenosis in the mid left superficial femoral artery. Left popliteal artery is small but patent. Left infrapopliteal arteries: Runoff vessels below the left knee are small and not well opacified, partly due to diminished flow related to the amputation. Liver: There is a diffuse decrease in hepatic parenchymal density, consistent with moderate fatty infiltration. There is no focal abnormality within the liver. Gallbladder and biliary ducts: There is a calcified gallstone within the gallbladder. There is no gallbladder wall thickening or pericholecystic fluid. There is no common bile duct dilation. Pancreas: The pancreas is normal. Spleen: The spleen is normal. Adrenal glands: The adrenal glands are normal. Kidneys and ureters: The kidneys are normal. There is no evidence of hydronephrosis. There is no evidence of renal or ureteral calcifications. Stomach and bowel: There is no evidence of colitis/diverticulitis. There is no evidence of intestinal obstruction. Appendix: A normal appendix is identified. Urinary bladder: Unremarkable. No mass. Reproductive: Unremarkable as visualized. Intraperitoneal space: There is no evidence of free intraperitoneal fluid. Lymph nodes: There is no evidence of lymphadenopathy. Bones/joints: There are degenerative changes in the right midfoot and right ankle. No acute fracture is identified. There is a left [id number] amputation. Soft tissues: There is soft tissue swelling along the dorsum of the right foot. Please correlate clinically. CT/CT angio abd aorta runof [id number] IMPRESSION: 1. Soft tissue swelling of the right foot consistent with the given clinical history of cellulitis. 2. There is no significant arterial disease affecting the right lower extremity.
[2024-02-10 16:00] VITALS: BP 146/81; PULSE 79; RESP 16; TEMP 36.6; O2SAT 95
--- NOTE | 2024-02-10 16:03 | MRR_ITS ---
PROCEDURE INFORMATION: Exam: MR Right Lower Extremity Other Than Joint Without Contrast; Foot Exam date and time: 02/10/2024 11:03 AM Age: 63 years old Clinical indication: Pain; Swelling, leg or foot; Right; Patient HX: HX of guillain-barre. HX of multiple myeloma; Additional info: Evaluate torn peroneus brevis tendon, not done 02/07, date moved TECHNIQUE: Imaging protocol: Magnetic resonance imaging of the right lower extremity without contrast. Exam focused on the foot. COMPARISON: CT foot RT w con [id number] 02/08/2024 2:30 PM FINDINGS: Bones/joints: No acute fracture is seen. Small tibiotalar and posterior subtalar joint effusions. The ankle mortise is symmetric. No osteochondral lesion is seen. LIGAMENTS: Distal tibiofibular syndesmosis: The anterior and posterior tibiofibular ligaments are not well visualized. Anterior talofibular ligament: The anterior talofibular ligament is intact. Posterior talofibular ligament: The posterior talofibular ligament is intact. Calcaneofibular ligament: The calcaneofibular ligament is intact. Deltoid ligament complex: The deltoid ligament is grossly intact. Lisfranc ligament: The Lisfranc ligament is intact. TENDONS: Flexor tendons of foot: The flexor digitorum longus tendon is intact. The flexor hallucis longus tendon is intact. Tibialis posterior tendon: Mild tendinosis of the posterior tibialis tendon. Peroneal tendons: The peroneus brevis tendon is torn and retracted. Mild tendinosis of the peroneus longus tendon. Extensor tendons of foot: The visualized extensor tendons are intact. Tibialis anterior tendon: The anterior tibialis tendon is intact. Achilles tendon: Mild Achilles tendinosis with low-grade partial tearing distally. Tarsal canal (Sinus tarsi): The sinus tarsi is clear. Tarsal tunnel: The tarsal tunnel is clear. Soft tissues: There is subcutaneous edema about the ankle and along the dorsal foot. Plantar fascia: The plantar fascia is thickened (5.7 mm); query plantar fasciitis. MR/MR foot RT wo con* [id number] IMPRESSION: 1. The peroneus brevis tendon is torn and retracted. The proximal peroneus brevis tendon is not visualized. 2. Mild tendinosis of the peroneus longus tendon. 3. Mild tendinosis of the posterior tibialis tendon. 4. Mild Achilles tendinosis with low-grade partial tearing distally. 5. The plantar fascia is thickened (5.7 mm); query plantar fasciitis. 6. Subcutaneous edema about the ankle and along the dorsal foot. 7. Small tibiotalar and posterior subtalar joint effusions.
[2024-02-10 17:09] LABS: Glucose Point of Care 176 mg/dL (70-110)
[2024-02-10 17:23] VITALS: RESP 16
[2024-02-10] MEDS: metoprolol tartrate 50 mg Tablet 100 MG PO (17:23)
[2024-02-10] MEDS: oxyCODONE-APAP 10-325 mg Tablet 1 TAB PO ×2 (17:23→23:08)
--- NOTE | 2024-02-10 19:02 | P.PN_ITS ---
Subjective 2 Subjective: Start replacement incident. Patient not present in room. Gone for CT angiogram. Case discussed with hospitalist. 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 Patient is nonambulatory and uses a Zachary lift for transfers. Left lower extremity was amputated due to chronic ulceration of left lower extremity. Patient does have a history of multiple myeloma that is managed at [facility]. Vitals/I&O/Wt Last Vital Signs Temp 97.8 F 02/10/24 16:00 Pulse 79 02/10/24 16:00 Resp 16 02/10/24 17:23 BP 146/81 02/10/24 16:00 Pulse Ox 95 02/10/24 16:00 O2 Del Method Room Air 02/10/24 16:00 02/10/24 02/10/24 02/10/24 06:59 14:59 22:59 Intake Total 350 / 1300 1170 / 1170 Output Total 900 / 900 900 / 900 Balance -550 / 400 1170 / 1170 -900 / 270 Weight last 48 hrs Weight 289 lb Weight 295 lb 11.2 oz Physical Exam 2 Narrative: BELOW IS A FOCUSED LOWER EXTREMITY EXAM GENERAL: A&O x 3 VASCULAR: Right DP/PT pulses strong biphasic on handheld doppler DERMATOLOGICAL: Erythema and edema to right lower extremity. Temperature is within normal limits, same as contralateral amputation site. Patchy erythema diffusely throughout the right lower extremity with ecchymoses appearance. Small superficial wound to anterior aspect of right tibia. No drainage. No soft tissue crepitus. No area of underlying fluctuance or signs of deep space abscess. MUSCULOSKELETAL: Pain with palpation of right posterior calf NEUROLOGICAL: Neurological sensation to the affected foot and ankle is present through L4-S1 dermatomes with no hyper/hypoesthesias, negative Tinel or Valleix's sign IMAGING: CT scan of right lower extremity, ankle and foot revealed no accumulation of fluid or abscess. Full-thickness tear of proximal peroneus brevis tendon. Venous stasis changes. No subcutaneous emphysema Data 02/10/24 05:11 02/10/24 05:11 A&P Assessment and plan (1) Venous stasis dermatitis: (2) Type 2 diabetes mellitus: (3) History of left below knee amputation: (4) Peripheral vascular disease: Plan -Right lower extremity erythema and edema -Labs and vitals reviewed -WBC 3.35 -ESR 6 -CRP 17.1 -HR 71 -RR 16 -Tmax 98.4 -Cultures blood culture NGTD -Abx cefepime/linezolid -Diet: Okay for diet -No surgical intervention by podiatry during this admission. Patient has venous stasis changes to the right lower extremity. No drainable accumulation of fluid or abscess. CT scan showed incidental finding of peroneus brevis probable full- thickness tear. This can affect the contracture of the right lower extremity which will predispose patient to further ulceration. However, no surgical intervention is warranted during this admission even with peroneus brevis tear. This can be managed in the outpatient setting likely with bracing. MRI confirmed full-thickness tear of peroneus brevis tendon with retraction. This appears to be chronic in nature. No urgent/emergent surgical intervention warranted at this time. This can be treated in the outpatient setting with bracing. However, due to patient's nonambulatory status and use of Zachary lift for transfers this is a discussion that we will have in the outpatient clinic setting. -CT angiogram abdominal aorta with runoff pending to assess for arterial occlusion or stenosis -Duplex ultrasound was negative for DVT -MRI reviewed -Pain Mgmt: Per primary team -Weight bearing: No weightbearing restrictions -Dressings: Hydrofera Blue applied to anterior castellano superficial wound with compressive dressing consisting of Vinicio wrap. Reinforce if needed. Ensure that compression is from the toes to the level of the knee to the right lower extremity. -Trend labs -Discharge plan: Persistent cellulitis right lower extremity, improving with IV antibiotic therapy and compression therapy. Edema to right foot persists. We will focus on compression therapy from the toes to the level of the knee to the right lower extremity. Plan is to continue IV antibiotic therapy through the weekend. Monitor erythematous changes to right lower extremity closely. MRI confirmed peroneus brevis tendon tear with retraction. This can be treated further in the outpatient setting. CT angiogram right lower extremity ordered. Depending on results may coordinate outpatient follow-up with [facility] vascular in [place]. Recommend follow-up within 1 week of discharge hospital with podiatry (Dr. Gillespie) -Following Attestations 2 Medical Necessity Statement*: Persistent erythema and edema to right lower extremity. Responding to IV antibiotics and compression therapy. Coding Level of Care Code Acute Code for Chg Fwd Diagnoses Venous stasis dermatitis I87.2 Type 2 diabetes mellitus E11.9 History of left below knee amputation Z89.512 Peripheral vascular disease I73.9
[2024-02-10] MEDS: iohexol 350 mg/mL 500 mL Btl (per mL) IV (19:18)
[2024-02-10 19:40] VITALS: BP 119/50; PULSE 60; RESP 17; TEMP 36.4; O2SAT 96
[2024-02-10] MEDS: trazodone 150 mg Tablet PO (20:23)
[2024-02-10] MEDS: amitriptyline 25 mg Tablet 100 MG PO (20:23)
[2024-02-10] MEDS: cyclobenzaprine 10 mg Tablet PO (20:26)
[2024-02-10 20:52] LABS: Glucose Point of Care 125 mg/dL (70-110)
[2024-02-10 23:08] VITALS: RESP 16; O2SAT 96
[2024-02-11] VITALS (9 sets, daily range): BP systolic 103–145; BP diastolic 66–79; PULSE 59–90; RESP 16–18; TEMP 36.5–37; O2SAT 94–100
[2024-02-11] MEDS: enoxaparin 40 mg/0.4 mL Syringe SUBCUT (01:33)
[2024-02-11 05:34] LABS: Basophils % 0.6 %; Eosinophils # 0.1 10^3/uL (0.0-0.8); Eosinophils % 3.2 %; Hematocrit 35.5 % (37-53); Lymphocytes # 1.3 10^3/uL (0.8-4.8); Lymphocytes % 41.1 %; Mean Corpuscular HGB Conc 30.7 g/dL (30-55); Mean Corpuscular Volume 94.4 fl (82-101); Mean Platelet Volume 11.5 fL (7.4-10.4); Monocytes # 0.5 10^3/uL (0.2-0.9); Monocytes % 17.5 %; Neutrophils # 1.15 10^3/uL (1.8-7.7); Neutrophils % 37.3 %; Nucleated Red Blood Cells % 0 %; Platelet Count 168 10^3/cmm (157-399); Red Blood Count 3.76 10^6/uL (3.85-5.65); White Blood Count 3.09 10^3/uL (3.29-11.43)
[2024-02-11 05:56] LABS: Blood Urea Nitrogen 4 mg/dL (8-23); Calcium 8.2 mg/dL (8.5-10.5); Carbon Dioxide 23 mmol/L (22-29); Chloride 108 mmol/L (98-107); Creatinine Clr Calc Pharmacy 215.8659; Glomerular Filtration Rate 168.5 mL/min (90-130); Glucose 207 mg/dL (65-115); Osmolality Calculated 293 mOsm/kg (285-295); Sodium 140 mmol/L (136-145)
[2024-02-11 05:58] LABS: Anion Gap 12.8 (5-19); Potassium 3.8 mmol/L (3.5-5.1)
[2024-02-11 06:25] LABS: Glucose Point of Care 177 mg/dL (70-110)
[2024-02-11] MEDS: verapamil ER 240 mg Tablet 120 MG PO (08:57)
[2024-02-11] MEDS: BuSPIRONE 10 mg Tablet 30 MG PO ×3 (08:57→20:25)
[2024-02-11] MEDS: duloxetine 60 mg Capsule PO ×2 (08:58→17:11)
[2024-02-11] MEDS: pantoprazole DR 40 mg Tablet PO (08:58)
[2024-02-11] MEDS: acyclovir 400 mg Tablet PO ×2 (08:58→17:11)
[2024-02-11] MEDS: gabapentin 300 mg Capsule 600 MG PO ×4 (08:58→20:26)
[2024-02-11] MEDS: metoprolol tartrate 50 mg Tablet 100 MG PO ×2 (08:58→17:11)
[2024-02-11] MEDS: oxyCODONE-APAP 10-325 mg Tablet 1 TAB PO ×3 (08:58→19:41)
[2024-02-11] MEDS: topiramate 100 mg Tablet PO (08:58)
[2024-02-11] MEDS: insulin lispro 100 unit/1 mL SUBCUT ×4 (08:58→22:07)
[2024-02-11] MEDS: FUROsemide 40 mg Tablet PO (08:58)
[2024-02-11] MEDS: atorvastatin 40 mg Tablet 20 MG PO (08:58)
[2024-02-11 11:26] LABS: Glucose Point of Care 159 mg/dL (70-110)
[2024-02-11] MEDS: vancomycin 2,000 MG/400 ML PIGGYBACK 200 MG IV (11:55)
[2024-02-11] MEDS: cefepime 2,000 MG in sodium chloride 0.9% (plus) 50 ML 100 MG IV ×2 (11:56→23:53)
--- NOTE | 2024-02-11 11:59 | PM.PN ---
Subjective Subjective: seen today no acute events overnight awaiting records from [facility] Vitals/I&O/Wt Last Vital Signs Temp 97.7 F 02/11/24 08:27 Pulse 62 02/11/24 08:27 Resp 17 02/11/24 08:58 BP 145/79 02/11/24 08:27 Pulse Ox 96 02/11/24 08:27 O2 Del Method Room Air 02/11/24 08:27 02/10/24 02/11/24 02/11/24 22:59 06:59 14:59 Intake Total 360 / 1530 810 / 2340 680 / 680 Output Total 900 / 900 Balance -540 / 630 810 / 1440 680 / 680 Weight last 48 hrs Weight 132.676 kg Weight 131.088 kg Physical Exam Narrative: General: Alert oriented x3, patient seen laying in bed appearing comfortable. Awake alert and talking. Sister at bedside. HEENT: Normocephalic, atraumatic, EOMI, Cardio: Regular rate rhythm, normal S1-S2, Respiratory: Good bilateral air entry, no wheezes no rhonchi appreciated GI: Abdomen soft, nontender, nondistended, bowel sounds + Extremities: Right leg compression bandage removed. Erythema improving, 2+ pedal edema. No draining wounds today. Data 02/11/24 04:39 02/11/24 04:39 A&P Assessment and plan (1) Cellulitis: #Right Lower Extremity Cellulitis #Diabetic Foot Infection -He has mild leukopenia , he is hemodynamically stable , his lactic acid is elevated -Continue cefepime and linezolid started in the ER -Blood cultures ordered -Will consider MRI to evaluate for deeper infection depending on clinical course, also podiatry consult as appropriate -Start IVF, check serial latic acid Qualifiers: Laterality: right Site of cellulitis: extremity Site of cellulitis of extremity: lower extremity Qualified Code(s): L03.115 - Cellulitis of right lower limb (2) Type 2 diabetes mellitus: -Unclear how much insulin patient takes at home -ACHS glucose checks, start sliding scale lispro -Check hBA1c (3) Hypertension: (4) Venous stasis dermatitis: (5) Peripheral vascular disease: (6) Diabetic foot infection: (7) History of left below knee amputation: (8) Heart failure: (9) Anxiety: (10) Multiple myeloma: (11) Metastasis to bone: (12) Guillain-[place]: (13) Bedbound: (14) Tendon rupture, nontraumatic: Plan Today's plan 02/10 #Right lower extremity cellulitis, pedal edema #Peroneus brevis tendon torn and retracted #Venous stasis dermatitis #Multiple myeloma #Metastases to bone #Bedbound, Zachary dependent for transfers #Type 2 diabetes mellitus #Anxiety/depression #Chronic heart failure?unspecified #Hypertension ? Continue home medications topiramate verapamil trazodone spironolactone, omeprazole, Lasix, gabapentin, duloxetine, diazepam, amitriptyline, acyclovir. ? Patient receives his care at [facility]. We will request records. ? I will continue all his home medications as listed at this time. Confirmed from sister. ? Patient does have a history of multiple myeloma with mets to bone. Will order pain medication for him. ? continue vancomycin and continue cefepime at this time. ? MRI foot reviewed. Will discuss results with podiatry. ? Continue sliding scale insulin high-dose intensity ? Venous Dopplers rule out DVT ? Continue IV antibiotics. Cellulitis slowly improving. Pedal edema quite significant. Patient does have pulses via Doppler. - reviewed ct abd run off, 1. Soft tissue swelling of the right foot consistent with the given clinical history of cellulitis. 2. There is no significant arterial disease affecting the right lower extremity Full code DVT prophylaxis: Lovenox Attestations Medical Necessity Statement*: Persistent erythema and edema to right lower extremity. Responding to IV antibiotics and compression therapy. Diagnoses Cellulitis L03.115 Laterality: right Site of cellulitis: extremity Site of cellulitis of extremity: lower extremity Type 2 diabetes mellitus E11.9 Hypertension I10 Venous stasis dermatitis I87.2 Peripheral vascular disease I73.9 Diabetic foot infection E11.628; L08.9 History of left below knee amputation Z89.512 Heart failure I50.9 Anxiety F41.9 Multiple myeloma C90.00 Metastasis to bone C79.51 Guillain-[place] G61.0 Bedbound Z74.01 Tendon rupture, nontraumatic M66.9
--- NOTE | 2024-02-11 13:05 | P.PN_ITS ---
Subjective 2 Subjective: Patient seen at bedside. Resting comfortably eating lunch. States he feels fine. Family members present at bedside. Discussed with family members and patient about history of right lower extremity swelling. Patient states that his right leg swells up like this daily. Home health had even come out to his house to perform compression wrap dressings 2-3 times weekly. This has since been discontinued as he has healed. He states that he wears compression stockings but they are so difficult to get on and take off. Vitals/I&O/Wt Last Vital Signs Temp 98.6 F 02/11/24 20:00 Pulse 59 L 02/11/24 20:00 Resp 18 02/11/24 20:00 BP 113/77 02/11/24 20:00 Pulse Ox 94 02/11/24 20:00 O2 Del Method Room Air 02/11/24 20:00 02/11/24 02/11/24 02/11/24 06:59 14:59 22:59 Intake Total 810 / 2340 1180 / 1180 980 / 2160 Output Total 1000 / 1000 Balance 810 / 1440 180 / 180 980 / 1160 Weight last 48 hrs Weight 292 lb 8 oz Weight 289 lb Physical Exam 2 Narrative: BELOW IS A FOCUSED LOWER EXTREMITY EXAM GENERAL: A&O x 3 VASCULAR: Right DP/PT pulses strong biphasic on handheld doppler DERMATOLOGICAL: Erythema and edema to right lower extremity, improved. Temperature is within normal limits, same as contralateral amputation site. Patchy erythema diffusely throughout the right lower extremity with ecchymoses appearance. Small superficial wound to anterior aspect of right tibia. No drainage. No soft tissue crepitus. No area of underlying fluctuance or signs of deep space abscess. MUSCULOSKELETAL: Pain with palpation of right posterior calf NEUROLOGICAL: Neurological sensation to the affected foot and ankle is present through L4-S1 dermatomes with no hyper/hypoesthesias, negative Tinel or Valleix's sign IMAGING: CT scan of right lower extremity, ankle and foot revealed no accumulation of fluid or abscess. Full-thickness tear of proximal peroneus brevis tendon. Venous stasis changes. No subcutaneous emphysema Data 02/11/24 04:39 02/11/24 04:39 A&P Assessment and plan (1) Venous stasis dermatitis: (2) Type 2 diabetes mellitus: (3) History of left below knee amputation: (4) Peripheral vascular disease: Plan -Right lower extremity erythema and edema -Labs and vitals reviewed -WBC 3.35 -ESR 6 -CRP 17.1 -HR 71 -RR 16 -Tmax 98.4 -Cultures blood culture NGTD -Abx cefepime/linezolid -Diet: Okay for diet -No surgical intervention by podiatry during this admission. Patient has venous stasis changes to the right lower extremity. No drainable accumulation of fluid or abscess. CT scan showed incidental finding of peroneus brevis probable full- thickness tear. This can affect the contracture of the right lower extremity which will predispose patient to further ulceration. However, no surgical intervention is warranted during this admission even with peroneus brevis tear. This can be managed in the outpatient setting likely with bracing. MRI confirmed full-thickness tear of peroneus brevis tendon with retraction. This appears to be chronic in nature. No urgent/emergent surgical intervention warranted at this time. This can be treated in the outpatient setting with bracing. However, due to patient's nonambulatory status and use of Zachary lift for transfers this is a discussion that we will have in the outpatient clinic setting. -CT angiogram abdominal aorta with runoff shows patent blood flow to right lower extremity. -Duplex ultrasound was negative for DVT -MRI reviewed -Pain Mgmt: Per primary team -Weight bearing: No weightbearing restrictions -Dressings: Hydrofera Blue applied to anterior castellano superficial wound with compressive dressing consisting of Vinicio wrap. Reinforce if needed. Ensure that compression is from the toes to the level of the knee to the right lower extremity. -Trend labs -Discharge plan: Persistent cellulitis right lower extremity, improving with IV antibiotic therapy and compression therapy. Edema to right foot persists. We will focus on compression therapy from the toes to the level of the knee to the right lower extremity. Plan is to continue IV antibiotic therapy through the weekend. Monitor erythematous changes to right lower extremity closely. MRI confirmed peroneus brevis tendon tear with retraction. This can be treated further in the outpatient setting. I would appreciate help from case management on helping patient acquire Juzo wraps for right lower extremity for outpatient setting to preven recurrence. Recommend follow-up within 1 week of discharge hospital with podiatry (Dr. Gillespie) -Following Attestations 2 Medical Necessity Statement*: See hospitalist note Coding Level of Care Code Acute Code for Chg Fwd Diagnoses Venous stasis dermatitis I87.2 Type 2 diabetes mellitus E11.9 History of left below knee amputation Z89.512 Peripheral vascular disease I73.9
[2024-02-11 16:33] LABS: Glucose Point of Care 164 mg/dL (70-110)
[2024-02-11] MEDS: amitriptyline 25 mg Tablet 100 MG PO (20:27)
[2024-02-11] MEDS: trazodone 150 mg Tablet PO (20:27)
[2024-02-11 21:13] LABS: Glucose Point of Care 161 mg/dL (70-110)
[2024-02-11 21:45] LABS: Vancomycin Trough 24.3 ug/mL (10-15)
--- NOTE | 2024-02-11 23:56 | PC.NURSE ---
Patient had a vanc trough of 24.3; called pharmacy to dose and they advised night time dose to be held; pharmacy to titrate dose.
[2024-02-12] VITALS: BP 110/77; PULSE 62; RESP 16; TEMP 37.1; O2SAT 95
[2024-02-12 00:55] VITALS: RESP 18; O2SAT 94
[2024-02-12] MEDS: oxyCODONE-APAP 10-325 mg Tablet 1 TAB PO ×2 (00:55→08:36)
[2024-02-12] MEDS: vancomycin 1,500 MG/300 ML PIGGYBACK 200 MG IV (02:07)
[2024-02-12] MEDS: enoxaparin 40 mg/0.4 mL Syringe SUBCUT (02:08)
[2024-02-12 04:00] VITALS: BP 105/71; PULSE 68; RESP 18; TEMP 36.8; O2SAT 94
[2024-02-12] MEDS: cyclobenzaprine 10 mg Tablet PO ×2 (04:12→09:56)
[2024-02-12 06:32] LABS: Basophils % 0.8 %; Eosinophils # 0.1 10^3/uL (0.0-0.8); Eosinophils % 2.1 %; Hematocrit 39.8 % (37-53); Lymphocytes # 1.5 10^3/uL (0.8-4.8); Lymphocytes % 38.2 %; Mean Corpuscular HGB Conc 30.7 g/dL (30-55); Mean Corpuscular Hemoglobin 29.3 pg (27-33); Mean Corpuscular Volume 95.7 fl (82-101); Mean Platelet Volume 10.3 fL (7.4-10.4); Monocytes # 0.7 10^3/uL (0.2-0.9); Monocytes % 16.8 %; Neutrophils # 1.62 10^3/uL (1.8-7.7); Neutrophils % 41.8 %; Nucleated Red Blood Cells % 0 %; Platelet Count 181 10^3/cmm (157-399); Red Blood Count 4.16 10^6/uL (3.85-5.65); Red Cell Distribution Width 15.9 % (12.1-15.1); White Blood Count 3.87 10^3/uL (3.29-11.43)
[2024-02-12 06:36] LABS: Glucose Point of Care 161 mg/dL (70-110)
[2024-02-12 06:50] LABS: Anion Gap 14.4 (5-19); Blood Urea Nitrogen 8 mg/dL (8-23); Calcium 8.4 mg/dL (8.5-10.5); Carbon Dioxide 21 mmol/L (22-29); Chloride 108 mmol/L (98-107); Creatinine Clr Calc Pharmacy 217.0055; Glomerular Filtration Rate 168.5 mL/min (90-130); Glucose 166 mg/dL (65-115); Osmolality Calculated 292 mOsm/kg (285-295); Potassium 3.4 mmol/L (3.5-5.1); Sodium 140 mmol/L (136-145)
[2024-02-12 07:58] VITALS: BP 117/79; PULSE 67; TEMP 36.6; O2SAT 95
[2024-02-12] MEDS: verapamil ER 240 mg Tablet 120 MG PO (08:28)
[2024-02-12] MEDS: insulin lispro 100 unit/1 mL SUBCUT ×2 (08:28→11:49)
[2024-02-12] MEDS: atorvastatin 40 mg Tablet 20 MG PO (08:29)
[2024-02-12] MEDS: metoprolol tartrate 50 mg Tablet 100 MG PO (08:29)
[2024-02-12] MEDS: pantoprazole DR 40 mg Tablet PO (08:29)
[2024-02-12] MEDS: BuSPIRONE 10 mg Tablet 30 MG PO (08:29)
[2024-02-12] MEDS: acyclovir 400 mg Tablet PO (08:29)
[2024-02-12] MEDS: topiramate 100 mg Tablet PO (08:29)
[2024-02-12] MEDS: FUROsemide 40 mg Tablet PO (08:30)
[2024-02-12] MEDS: duloxetine 60 mg Capsule PO (08:30)
[2024-02-12] MEDS: gabapentin 300 mg Capsule 600 MG PO ×2 (08:31→13:55)
[2024-02-12 08:36] VITALS: RESP 18
--- NOTE | 2024-02-12 09:46 | P.DS_ITS ---
Discharge Providers Date of Admission: 02/08/24 01:28 Date of Discharge: February 12, 2024 Attending Provider at Admission: Bethanie Montague MD Attending Provider at Discharge: Vinicius Conway MD Primary Care Provider: Larissa Munoz Diagnoses at Discharge Discharge Diagnosis (1) Venous stasis dermatitis: Status: Acute (2) Type 2 diabetes mellitus: Status: Acute (3) History of left below knee amputation: Status: Acute (4) Peripheral vascular disease: Status: Acute Reason for Visit Reason for Visit: rt leg swelling and pain Brief History: History as per HPI: Mr Avel Hurley is a 63 year-old man with a history of diabetes,hypertension , left BKA, who presents for further evaluation of worsening right lower extremity redness and swelling . patient isn't very clear on when he noticed the symptoms. He usually wears a ? compression device and on removal he noticed the swelling and redness. He has not felt sensation in the right lower extremity for several years. He denies fevers, chills, abdominal pain, nausea, vomiting , chest pain, shortness of breath or any other symptoms. Patient is not sure of his home medications. He takes antihypertensive and insulin. Hospital Course Hospital Course Patient was admitted to the hospital further evaluation and management of likely cellulitis. Podiatry was consulted he was started on broad-spectrum antibiotics with IV linezolid and cefepime. During hospitalization his blood culture remain negative. Antibiotics were tailored as per past culture history of Enterobacter, MSSA, resistant E.coli. Imaging done in the ER on admission showed no abscess. Podiatry recommended medical management. CT of the leg also showed a possible incidental finding of rupture of peroneus brevis tendon which was confirmed by MRI. During hospitalization he was also found to have uncontrolled type 2 diabetes mellitus with A1c of more than 9. Discharged in hemodynamically stable condition for linezolid and Levaquin for next 7 days. 10 units of Lantus has been added to his medication list. He will follow-up with podiatry as an outpatient for further evaluation and management of peroneus brevis tendon rupture within next 1 to 2 weeks. Physical Exam Narrative: General: Alert oriented x3, patient seen laying in bed appearing comfortable. Awake alert and talking. HEENT: Normocephalic, atraumatic, EOMI, Cardio: Regular rate rhythm, normal S1-S2, Respiratory: Good bilateral air entry, no wheezes no rhonchi appreciated GI: Abdomen soft, nontender, nondistended, bowel sounds + Extremities: Right leg compression bandage removed. Erythema improving, 2+ pedal edema. No draining wounds today. Left leg BKA. Right hand contracture Discharge Data Studies Completed and Pending Completed Studies During Hospitalization Category Date Time Status CT angio abd aorta runof 26577 Routine Cat Scan 02/10/24 15:[address] foot RT w con [id number] Stat Cat Scan 02/08/24 12:[address] lower leg RT w con [id number] Stat Cat Scan 02/08/24 12:19 Completed MR foot RT wo con* [id number] Routine MRI 02/10/24 16:03 [place] [id number] Routine Ultrasound 02/08/24 14:22 Completed Pending at discharge Category Date Time Status B12 [Vitamin B12] Routine Lab 02/12/24 06:00 Received Blood Culture Stat Lab 02/07/24 23:23 Results Complete Blood Count w/Auto AM LABS Lab 02/13/24 04:00 Ordered Comprehensive Metabolic Panel AM LABS Lab 02/13/24 04:00 Ordered Folate Level AM LABS Lab 02/13/24 04:00 Ordered Lipid Profile w/VLDL Routine Lab 02/13/24 04:00 Ordered MAG [Magnesium] AM LABS Lab 02/13/24 04:00 Ordered MAG [Magnesium] AM LABS Lab 02/14/24 04:00 Ordered MAG [Magnesium] AM LABS Lab 02/15/24 04:00 Ordered Procalcitonin Routine Lab 02/12/24 06:00 Received TIBC [Total Iron Binding Capacity] Routine Lab 02/12/24 06:00 Received Thyroid Stimulating Hormone Stat Lab 02/12/24 06:00 Received Radiology Impressions Foot CT 02/08/24 12:19 IMPRESSION: 1. Subcutaneous edema in the right lower leg, ankle and foot region is greatest laterally without evidence of a discrete fluid collection or soft tissue gas. This edema may be related to cellulitis, noninfectious inflammatory changes or venous stasis. 2. No CT evidence of osteomyelitis. 3. Old fracture of the proximal phalanx of the great toe. 4. Primary osteoarthritic changes. 5. Old ununited fracture fragments adjacent to the inferior margin of the medial malleolus. 6. 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 7. Extensive diffuse muscular atrophy. 8. Probable full-thickness tear of the proximal peroneus brevis tendon. MRI of the ankle may be useful for further assessment as clinically indicated. Lower Extremity CT 02/08/24 12:19 IMPRESSION: 1. Subcutaneous edema in the right lower extremity is noted which may be related to cellulitis, noninfectious inflammatory changes or venous stasis. No evidence of soft tissue gas or soft tissue fluid collection. 2. Right knee primary osteoarthritic changes and small joint effusion. 3. A region of stippled sclerotic density in the lateral femoral condyle is noted with benign features suggestive of a hemangioma. 4. Extensive muscular atrophy. 5. Please refer to the separate right lower extremity CT report from the same day for further discussion of ankle and foot findings. Venous Duplex 02/08/24 14:22 IMPRESSION: No evidence of deep vein thrombosis in the right lower extremity. Aorta w/Runoff CTA 02/10/24 15:53 IMPRESSION: 1. Soft tissue swelling of the right foot consistent with the given clinical history of cellulitis. 2. There is no significant arterial disease affecting the right lower extremity. Foot MRI 02/10/24 16:03 IMPRESSION: 1. The peroneus brevis tendon is torn and retracted. The proximal peroneus brevis tendon is not visualized. 2. Mild tendinosis of the peroneus longus tendon. 3. Mild tendinosis of the posterior tibialis tendon. 4. Mild Achilles tendinosis with low-grade partial tearing distally. 5. The plantar fascia is thickened (5.7 mm); query plantar fasciitis. 6. Subcutaneous edema about the ankle and along the dorsal foot. 7. Small tibiotalar and posterior subtalar joint effusions. Microbiology 02/08/24 00:08 Blood Blood Culture - Preliminary NEGATIVE TO DATE 02/08/24 00:01 Blood Blood Culture - Preliminary NEGATIVE TO DATE Laboratory Results WBC 3.87 10^3/uL (3.29-11.43) 02/12/24 06:00 RBC 4.16 10^6/uL (3.85-5.65) 02/12/24 06:00 Hgb 12.20 g/dL (11.27-16.99) 02/12/24 06:00 Hct 39.8 % (37-53) 02/12/24 06:00 MCV 95.7 fl (82-101) 02/12/24 06:00 MCH 29.3 pg (27-33) 02/12/24 06:00 MCHC 30.7 g/dL (30-55) 02/12/24 06:00 RDW 15.9 % (12.1-15.1) H 02/12/24 06:00 Plt Count 181 10^3/cmm (157-399) 02/12/24 06:00 MPV 10.3 fL (7.4-10.4) 02/12/24 06:00 Neut % (Auto) 41.8 % 02/12/24 06:00 Lymph % (Auto) 38.2 % 02/12/24 06:00 [place] % (Auto) 16.8 % 02/12/24 06:00 Eos % (Auto) 2.1 % 02/12/24 06:00 Baso % (Auto) 0.8 % 02/12/24 06:00 Neut # (Auto) 1.62 10^3/uL (1.8-7.7) L 02/12/24 06:00 Lymph # (Auto) 1.5 10^3/uL (0.8-4.8) 02/12/24 06:00 [place] # (Auto) 0.7 10^3/uL (0.2-0.9) 02/12/24 06:00 Eos # (Auto) 0.1 10^3/uL (0.0-0.8) 02/12/24 06:00 Baso # (Auto) 0.0 10^3/uL (0.0-0.1) 02/12/24 06:00 Nucleated RBC % (auto) 0 % 02/12/24 06:00 Total Counted 100 (0-100) 02/08/24 04:52 Atypical Lymphs % Not Reportable 02/08/24 04:52 Absolute Neutrophils 1.5 10^3/cmm (1.4-6.5) 02/08/24 04:52 Segmented Neutrophils 42 % 02/08/24 04:52 Abs Segm Neuts (Man) 1.4 10/cmm (1.6-7.1) L 02/08/24 04:52 Band Neutrophils 4.0 % 02/08/24 04:52 Abs Band Neuts (Man) 0.1 10^3/cmm (0.0-1.2) 02/08/24 04:52 Lymphocytes (Manual) 32 % 02/08/24 04:52 Monocytes (Manual) 18.0 % 02/08/24 04:52 Absolute Monocytes 0.6 10^3/cmm (0.1-0.6) 02/08/24 04:52 Eosinophils (Manual) 4 % 02/08/24 04:52 Absolute Eosinophils 0.1 10^3/cmm (0.0-0.7) 02/08/24 04:52 Basophils (Manual) 0.0 % 02/08/24 04:52 Absolute Basophils 0.0 10^3/cmm (0.0-0.2) 02/08/24 04:52 Nucleated RBCs # 0.0 /100WBC 02/12/24 06:00 Platelet Estimate Decreased (Normal) 02/08/24 04:52 ESR 6 mm/hr (0-10) 02/08/24 00:01 Sodium 140 mmol/L (136-145) 02/12/24 06:00 Potassium 3.4 mmol/L (3.5-5.1) L 02/12/24 06:00 Chloride 108 mmol/L (98-107) H 02/12/24 06:00 Carbon Dioxide 21 mmol/L (22-29) L 02/12/24 06:00 Anion Gap 14.4 (5-19) 02/12/24 06:00 BUN 8 mg/dL (8-23) 02/12/24 06:00 Creatinine 0.5 mg/dL (0.7-1.2) L 02/12/24 06:00 GFR Calculation 168.5 mL/min (90-130) H 02/12/24 06:00 Glucose 166 mg/dL (65-115) H 02/12/24 06:00 POC Glucose 161 mg/dL (70-110) H 02/12/24 06:33 Estimat Average Glucose 217 02/08/24 04:52 Hemoglobin A1c 9.2 % (4.0-6.0) H 02/08/24 04:52 Calculated Osmolality 292 mOsm/kg (285-295) 02/12/24 06:00 Lactic Acid 2.6 mmol/L (0.5-2.2) H 02/08/24 00:01 Lactic Acid (Sepsis) 3.3 mmol/L (0.5-2.2) H 02/08/24 04:52 Calcium 8.4 mg/dL (8.5-10.5) L 02/12/24 06:00 Phosphorus 3.0 mg/dL (2.5-4.5) 02/08/24 04:52 Magnesium 1.7 mg/dL (1.7-2.3) 02/10/24 05:11 Total Bilirubin 0.4 mg/dL (0.15-1.2) 02/08/24 00:01 AST 6 U/L (0-40) 02/08/24 00:01 ALT 7 U/L (0-41) 02/08/24 00:01 Alkaline Phosphatase 74 U/L (40-130) 02/08/24 00:01 C-Reactive Protein 17.1 mg/L (0.0-4.9) H 02/08/24 00:01 Total Protein 5.1 g/dL (6.6-8.7) L 02/08/24 00:01 Albumin 3.1 g/dL (3.5-5.2) L 02/08/24 04:52 Globulin 2.0 g/dL (1.3-4.6) 02/08/24 00:01 Vancomycin Trough 24.3 ug/mL (10-15) H 02/11/24 21:07 Vitals Last Vital Signs Temp 97.8 F 02/12/24 07:58 Pulse 67 02/12/24 07:58 Resp 18 02/12/24 08:36 BP 117/79 02/12/24 07:58 Pulse Ox 95 02/12/24 07:58 O2 Del Method Room Air 02/12/24 04:00 Discharge Plan Discharge Patient Disposition: Home Health Service Condition: Stable Prescriptions: New Lantus Solostar U-100 Insulin 100 unit/mL (3 mL) insulin pen 10 unit SUBCUT QPM Qty: 15 0RF linezolid 100 mg/5 mL suspension for reconstitution 200 mg PO Q12H 7 Days Qty: 140 0RF levofloxacin 500 mg tablet 500 mg PO Q24H 7 Days Qty: 7 0RF Continued verapamil 120 mg tablet extended release 120 mg PO DAILY cyclobenzaprine 10 mg tablet 10 mg PO TID PRN (Reason: MUSCLE SPASMS) furosemide 40 mg tablet 40 mg PO DAILY pravastatin 40 mg tablet 40 mg PO DAILY meloxicam 15 mg tablet 15 mg PO DAILY PRN (Reason: PAIN AND INFLAMMATION) ondansetron HCl 4 mg tablet 4 mg PO Q6H PRN (Reason: Nausea) hydroxyzine HCl 50 mg tablet 100 mg PO BEDTIME acyclovir 400 mg tablet 400 mg PO BID omeprazole 40 mg capsule,delayed release(DR/EC) 40 mg PO QAM pentoxifylline 400 mg tablet extended release 400 mg PO TID potassium chloride 20 mEq tablet,ER particles/crystals 40 meq PO BID oxycodone-acetaminophen 10-325 mg tablet See Rx Instructions .ROUTE .COMPLEX Rx Instructions: TAKE 1 OR 2 TABLEST BY MOUTH EVERY 4 TO 6 HOURS NEEDED FOR PAIN. MAX DAILY AMOUNT OF 6 TABLETS. trazodone 150 mg tablet 150 mg PO BEDTIME buspirone 30 mg tablet 30 mg PO TID metformin 1,000 mg tablet 1,000 mg PO BID dexamethasone 4 mg tablet See Rx Instructions .ROUTE .COMPLEX Rx Instructions: TAKE 5 TABLETS BY MOUTH 2 TO 3 HOURS PRIOR TO DARZALEX. metoprolol tartrate 50 mg tablet See Rx Instructions .ROUTE .COMPLEX Rx Instructions: TAKE 100MG BY MOUTH IN THE MORNING AND 1 TABLET IN THE EVENING. gabapentin 300 mg capsule 600 mg PO QID Ventolin HFA 90 mcg/actuation HFA aerosol inhaler 2 puff INHALATION Q4H PRN (Reason: Shortness Of Breath) topiramate 100 mg tablet 100 mg PO DAILY amitriptyline 100 mg tablet 100 mg PO BEDTIME spironolactone 50 mg tablet See Rx Instructions .ROUTE .COMPLEX Rx Instructions: TAKE 1 TABLET BY MOUTH 3 TIMES WEEKLY. diazepam 5 mg tablet 5 mg PO DAILY duloxetine 60 mg capsule,delayed release(DR/EC) 60 mg PO BID lenalidomide 25 mg capsule 25 mg PO DIRECTED Humulin R U-500 (Conc) Kwikpen 500 unit/mL (3 mL) insulin pen 120 unit SUBCUT TID Discharge Orders: Discharge Order (Routine); Ordered 02/12/24 Ordered By: Vinicius Conway Referrals: [facility] [Outside] Jeovanny Gillespie DPM [Physician] - 02/29/24 8:15 am ([phone]) Larissa Munoz [Primary Care Provider] - 02/15/24 2:40 pm () Discharge Diet: Cardiac and Diabetic Discharge Activity: Resume usual activity and Increase activity as tolerated Patient Instructions: Levofloxacin (By mouth) (Levaquin, Levaquin Leva-jalil), Linezolid (By mouth), Insulin Glargine (By injection), Opioid Safety Activity Restrictions/Additional Instructions: Linezolid and Levaquin antibiotics take for next 7 days. Linezolid will be twice daily and Levaquin only once daily. Lantus 10 units every night has been added to your medication list. Check your fasting blood sugars daily. Target fasting blood sugar less than 120 while remains less than 140. Please follow-up with a primary care provider within next 1 week. Follow-up with Dr. Gillespie on 02/28. Discharge Attestations Time Spent in Discharge Care*: greater than 30 min Specific Discharge Activities: educating patient, discussing with pcp/other providers, discussing with medical case worker/social workers/dc planners, documenting/other paperwork and evaluating patient/reviewing data Status at Discharge: Cognitive status at discharge: cognitively intact , Behavioral status at discharge: cooperative , Functional status at discharge: other assisted ambulation , Overall status at discharge: patient is progressing back to baseline Quality Metrics Clinical Quality Measures [ No reported AMI, CVA or VTE this stay] Coding Level of Care Code 52978 Total time (in minutes) for Discharge: 60 Diagnoses Venous stasis dermatitis I87.2 Type 2 diabetes mellitus E11.9 History of left below knee amputation Z89.512 Peripheral vascular disease I73.9
--- NOTE | 2024-02-12 09:46 | PC.SOCIAL ---
IMM Updated Updated pt on IMM. No questions voiced. Provided pt a copy. Initialed, dated, & timed copy in chart.
[2024-02-12 09:57] LABS: Procalcitonin 0.15 ng/mL (0-0.5); Thyroid Stimulating Hormone 0.83 uIU/mL (0.27-4.20)
--- NOTE | 2024-02-12 10:15 | P.PN_ITS ---
Subjective 2 Subjective: Patient seen at bedside this morning. Resting comfortably. Denies any pain. Vitals/I&O/Wt Last Vital Signs Temp 97.8 F 02/12/24 07:58 Pulse 67 02/12/24 07:58 Resp 18 02/12/24 08:36 BP 117/79 02/12/24 07:58 Pulse Ox 95 02/12/24 07:58 O2 Del Method Room Air 02/12/24 04:00 02/11/24 02/12/24 02/12/24 22:59 06:59 14:59 Intake Total 980 / 2160 850 / 3010 240 / 240 Output Total 850 / 1850 Balance 130 / 310 850 / 1160 240 / 240 Weight last 48 hrs Weight 295 lb 6.4 oz Weight 292 lb 8 oz Physical Exam 2 Narrative: BELOW IS A FOCUSED LOWER EXTREMITY EXAM GENERAL: A&O x 3 VASCULAR: Right DP/PT pulses strong biphasic on handheld doppler DERMATOLOGICAL: Erythema and edema to right lower extremity, improved. Temperature is within normal limits, same as contralateral amputation site. Patchy erythema diffusely throughout the right lower extremity with ecchymoses appearance. Small superficial wound to anterior aspect of right tibia. No drainage. No soft tissue crepitus. No area of underlying fluctuance or signs of deep space abscess. MUSCULOSKELETAL: Pain with palpation of right posterior calf NEUROLOGICAL: Neurological sensation to the affected foot and ankle is present through L4-S1 dermatomes with no hyper/hypoesthesias, negative Tinel or Valleix's sign IMAGING: CT scan of right lower extremity, ankle and foot revealed no accumulation of fluid or abscess. Full-thickness tear of proximal peroneus brevis tendon. Venous stasis changes. No subcutaneous emphysema Data 02/12/24 06:00 02/12/24 06:00 A&P Assessment and plan (1) Venous stasis dermatitis: (2) Type 2 diabetes mellitus: (3) History of left below knee amputation: (4) Peripheral vascular disease: Plan -Right lower extremity erythema and edema -Labs and vitals reviewed -WBC 3.35 -ESR 6 -CRP 17.1 -HR 71 -RR 16 -Tmax 98.4 -Cultures blood culture NGTD -Abx cefepime/linezolid -Diet: Okay for diet -No surgical intervention by podiatry during this admission. Patient has venous stasis changes to the right lower extremity. No drainable accumulation of fluid or abscess. CT scan showed incidental finding of peroneus brevis probable full- thickness tear. This can affect the contracture of the right lower extremity which will predispose patient to further ulceration. However, no surgical intervention is warranted during this admission even with peroneus brevis tear. This can be managed in the outpatient setting likely with bracing. MRI confirmed full-thickness tear of peroneus brevis tendon with retraction. This appears to be chronic in nature. No urgent/emergent surgical intervention warranted at this time. This can be treated in the outpatient setting with bracing. However, due to patient's nonambulatory status and use of Zachary lift for transfers this is a discussion that we will have in the outpatient clinic setting. -CT angiogram abdominal aorta with runoff shows patent blood flow to right lower extremity. -Duplex ultrasound was negative for DVT -MRI reviewed -Pain Mgmt: Per primary team -Weight bearing: No weightbearing restrictions -Dressings: Hydrofera Blue applied to anterior castellano superficial wound with compressive dressing consisting of Vinicio wrap. Reinforce if needed. Ensure that compression is from the toes to the level of the knee to the right lower extremity. -Trend labs -Discharge plan: Persistent cellulitis right lower extremity, improving with IV antibiotic therapy and compression therapy. Edema to right foot persists. We will focus on compression therapy from the toes to the level of the knee to the right lower extremity. Plan is to continue IV antibiotic therapy through the weekend. Monitor erythematous changes to right lower extremity closely. MRI confirmed peroneus brevis tendon tear with retraction. This can be treated further in the outpatient setting. I would appreciate help from case management on helping patient acquire Juzo wraps for right lower extremity for outpatient setting to preven recurrence. Recommend follow-up within 1-2 weeks of discharge hospital with podiatry (Dr. Gillespie) -Following Attestations 2 Medical Necessity Statement*: See hospitalist note Coding Level of Care Code Acute Code for [facility] Fwd Diagnoses Venous stasis dermatitis I87.2 Type 2 diabetes mellitus E11.9 History of left below knee amputation Z89.512 Peripheral vascular disease I73.9
[2024-02-12 10:50] LABS: Iron 47 ug/dL (59-158); Percent Saturation 20.1 % (20-50); Total Iron Binding Capacity 233 mcg/dl; Unsaturated Iron Binding 186 ug/dL (112-347)
[2024-02-12 10:55] LABS: Glucose Point of Care 169 mg/dL (70-110)
[2024-02-12 11:04] LABS: Vitamin B12 847 pg/mL (232-1245)
--- NOTE | 2024-02-12 11:40 | PC.NURSE ---
dc pending transportation set up
[2024-02-12] MEDS: cefepime 2,000 MG in sodium chloride 0.9% (plus) 50 ML 100 MG IV (11:49)
[2024-02-12 11:55] VITALS: BP 109/66; PULSE 65; TEMP 36.9; O2SAT 95
== END 2024-02-12 14:14 | disposition home health service (06) | DRG 603 ==
LOC: ER 02-08 01:14 → MEDSURG 02-08 01:28
PROVIDERS: Internal Medicine; Admitting Provider Student in an Organized Health Care Education/Training Program; Emergency Provider Emergency Medicine; PCP Registered Nurse; Visit Provider Student in an Organized Health Care Education/Training Program
DX: L03.115 Cellulitis of right lower limb (principal); C90.00 Multiple myeloma not having achieved remission; C79.51 Secondary malignant neoplasm of bone; G81.91 Hemiplegia, unspecified affecting right dominant side; I87.2 Venous insufficiency (chronic) (peripheral); I73.9 Peripheral vascular disease, unspecified; Z89.512 Acquired absence of left leg below knee; E11.40 Type 2 diabetes mellitus with diabetic neuropathy, unspecified; Z79.4 Long term (current) use of insulin; Z79.84 Long term (current) use of oral hypoglycemic drugs; I11.0 Hypertensive heart disease with heart failure; I50.9 Heart failure, unspecified; F41.9 Anxiety disorder, unspecified; Z74.01 Bed confinement status; G65.0 Sequelae of Guillain-Barre syndrome; S86.811A Strain of other muscle(s) and tendon(s) at lower leg level, right leg, initial encounter; X58.XXXA Exposure to other specified factors, initial encounter
CPT/HCPCS: 12345; 36415; 36416; 73701; 73718; 75635; 80048; 80053; 80069; 80202; 82607; 82962; 83036; 83540; 83550; 83605; 83735; 84145; 84443; 85007; 85025; 85027; 85651; 86140; 87040; 93971; 96365; 96367; 96372; 96375; 99285; J0692; J1650; J1815; J2020; J2270; J2405; J3370; J3372; J7120; J8499; Q9967

== ENCOUNTER → 2024-02-29 08:20 | Outpatient (BNVA) | payer MEDICARE, MEDICAID, SELFPAY | PROVIDERS: PCP Registered Nurse; Visit Provider Podiatrist Foot & Ankle Surgery | DX: I87.2 Venous insufficiency (chronic) (peripheral) (principal); I73.9 Peripheral vascular disease, unspecified; M25.371 Other instability, right ankle; E11.69 Type 2 diabetes mellitus with other specified complication; Z79.4 Long term (current) use of insulin; Z79.84 Long term (current) use of oral hypoglycemic drugs; M66.871 Spontaneous rupture of other tendons, right ankle and foot | CPT/HCPCS: 99213 ==

== ENCOUNTER 2024-03-11 18:34 | Emergency (ER) | payer MEDICARE, MEDICAID, SELFPAY ==
[2024-03-11 18:44] VITALS: BP 134/74; PULSE 81; RESP 18; TEMP 36.4; O2SAT 98; BMI 36.3
[2024-03-11 19:10] LABS: Basophils # 0.1 10^3/uL (0.0-0.1); Basophils % 0.9 %; Eosinophils # 0.1 10^3/uL (0.0-0.8); Eosinophils % 1.1 %; Hematocrit 41.9 % (37-53); Lymphocytes # 1.9 10^3/uL (0.8-4.8); Lymphocytes % 22.7 %; Mean Corpuscular HGB Conc 30.8 g/dL (30-55); Mean Corpuscular Hemoglobin 28.4 pg (27-33); Mean Corpuscular Volume 92.1 fl (82-101); Mean Platelet Volume 10.3 fL (7.4-10.4); Monocytes % 24.4 %; Neutrophils # 4.11 10^3/uL (1.8-7.7); Neutrophils % 50.5 %; Nucleated Red Blood Cells % 0 %; Platelet Count 135 10^3/cmm (157-399); Red Blood Count 4.55 10^6/uL (3.85-5.65); Red Cell Distribution Width 15.9 % (12.1-15.1); White Blood Count 8.14 10^3/uL (3.29-11.43)
--- NOTE | 2024-03-11 19:16 | ED_ITS ---
HPI - Nausea/Vomiting/Diarrhea 2 General: Chief complaint: Nausea/Vomiting/Diarrhea Stated complaint: DIARRHEA Time Seen by Provider: 03/11/24 18:46 Source: patient and EMS Mode of arrival: EMS Limitations: no limitations History of Present Illness: Patient is a 63-year-old male past medical history of diabetes who presents the emergency department complaining of diarrhea for the last 1.5 weeks. Patient did arrive by EMS, family had called for this. Recently he was in the hospital, admitted 02/11 cellulitis and diabetic foot ulcer of the right lower extremity. 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 He is bedbound at home and requires Zachary lift. He denies any blood in his stool, and denies any fevers at home. States he is having irritation down in the perirectal region due to the repetitive diarrhea. No vomiting or nausea, no abdominal pain, no chest pain or shortness of breath, no other symptoms to report at this time. He does state that he finished antibiotics recently discharged from the hospital. MD elicited complaint: diarrhea Onset (ago): week(s) (1.5) Description of vomiting: watery Associated nausea: No Associated abdominal pain: No Location of pain: None Exacerbating factors: none Relieving factors: none Associated symtoms: Denies chest pain, diaphoresis, dizziness, dysuria, headache(s), nausea or palpitations Review of Systems 2 General: Reports: 10 or more systems reviewed and unremarkable except in HPI and below Const: Reports: change in appetite; Denies: fever(s), chills, change in weight or diaphoresis ENMT: Denies: throat pain or hoarseness Card: Denies: chest pain, palpitations or lightheadedness Resp: Denies: dyspnea, productive cough or wheezing GI: Reports: diarrhea and rectal pain; Denies: abdominal pain, nausea or vomiting : Denies: flank pain, difficulty urinating, dysuria, urinary frequency or urinary urgency Musc: Denies: neck pain or back pain Skin/Breast: Denies: new lesions Neuro: Denies: headache(s) or dizziness PFSH ED 2 PFSH: 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[place] Anxiety Heart failure Hypertension Type 2 diabetes mellitus Surgical History History of left below knee amputation Social History Smoking and tobacco/nicotine status: never used tobacco/nicotine Additional social history: He denies alcohol, tobacco or illicit drug use Physical Exam 2 Const: COMMON NORMALS: no acute distress, patient oriented x3, no limitations, alert and well nourished GENERAL APPEARANCE: cooperative, comfortable, disheveled and appears older than stated age NUTRITIONAL APPEARANCE: obese morbidly obese ORIENTATION/CONSCIOUSNESS: Yes awake HENMT: COMMON NORMALS: normocephalic, atraumatic, hearing grossly normal bilaterally, external ears normal, Normal external nose present, Normal nasal mucous membranes and turbinates present and moist oral mucous membranes HEAD & SCALP: normocephalic and atraumatic NOSE: Normal external nose present and Normal nasal mucous membranes and turbinates present EXTERNAL EAR: Yes external ears normal Eye: COMMON NORMALS: Equal, round and reactive pupils present, EOMs intact bilaterally, conjunctivae normal and normal visual manuel by confrontation C ONJUNCTIVA: Yes conjunctivae normal PUPIL: Yes Equal, round and reactive pupils present Neck/C-Spine: COMMON NORMALS: full ROM, supple, no meningeal signs and no JVD Resp: COMMON NORMALS: normal respiratory effort, No retractions, No use of accessory muscles and clear to auscultation bilaterally AUSCULTATION: clear to auscultation bilaterally, no crackles, no rales, no rhonchi and no wheezes Cardio: COMMON NORMALS: no JVD, regular rate, regular rhythm, S1 normal heart sound present, S2 normal heart sound present, No gallops present (Cardio), No clicks present (Cardio), No murmurs present (Cardio), No rub (Cardio) and Peripheral pulses 2+ throughout RATE: regular rate RHYTHM: regular rhythm HEART SOUNDS: S1 normal heart sound present and S2 normal heart sound present PERIPHERAL PULSES: Peripheral pulses 2+ throughout GI: COMMON NORMALS: Normal to inspection, nondistended, normoactive bowel sounds present, Soft to palpation, non-tender, No hepatosplenomegaly present and no masses INSPECTION: Yes central obesity AUSCULTATION: Yes normoactive bowel sounds PALPATION: Yes Soft to palpation, No Guarding due to palpation present (GI), No Rigid due to palpation and Yes No hepatosplenomegaly present RECTAL EXAM: Yes deferred OTHER: The perirectal region appears erythematous with cracking of the skin noticed circumferentially, no active bleeding. Does not appear consistent with Renee's gangrene Extremity: NARRATIVE EXTREMITY EXAM: Left BKA. Right lower extremity is wrapped. Neuro: COMMON NORMALS: patient oriented x3 SENSORIUM/ORIENTATION: Yes alert MENINGEAL SIGNS: Yes no meningeal signs Psych: COMMON NORMALS: mental status grossly normal, cooperative and speech normal SPEECH: Yes normal speech Course 2 Vital Signs: Vital signs: Vital Signs Temperature 97.6 F 03/11/24 18:44 Pulse Rate 78 03/11/24 22:00 Respiratory Rate 22 H 03/11/24 22:00 Blood Pressure 126/75 03/11/24 22:00 Pulse Oximetry 98 03/11/24 22:00 Oxygen Delivery Me thod Room Air 03/11/24 18:44 MDM - Nausea/Vomiting/Diarrhea Medical Decision Making Patient brought in by ambulance for diarrhea for the past week or so. History of diabetes. His vitals were unremarkable. Labs found him to have an elevated blood sugar, however this reported value was patient's normal. He had an additional complaint of discharge from the penis, likely fungal infection secondary to his hyperglycemia. He will be prescribed clotrimazole for this. His CT of his abdomen did not demonstrate any acute findings. Stool cultures are pending at this time, and his C. difficile PCR is negative. Urinalysis negative. No severe electrolyte disturbances. I do believe patient's diarrhea to be of viral origin, potentially a viral gastroenteritis. He is instructed to increase his dietary fiber and drink plenty of fluids. He will be prescribed clotrimazole as discussed and will follow-up with primary care for further evaluation. Stool cultures are pending at this time. Reasons return were discussed thoroughly, and patient's case discussed with Dr. Tapia in the ER. Lab Data 03/11/24 19:03 03/11/24 19:03 Radiology Impressions Abdomen/Pelvis CT 03/11/24 19:50 IMPRESSION: 1. 1.5 cm stone within the gallbladder. No pericholecystic inflammatory changes to suggest cholecystitis. 2. Hepatic steatosis. 3. Numerous bilateral pulmonary nodules, largest measuring up to 0.9 cm in the left lower lobe. 4. For patients at low risk (minimal or absent history of smoking and of other known risk factors), recommend CT Chest at 3-6 months, then consider CT Chest at 18-24 months. For patients at high risk (history of smoking or of other known risk factors), recommend CT Chest at 3-6 months, then CT Chest at 18-24 months. (Reference: Triny) REFERENCES: Triny Varner, et al. Guidelines for Management of Incidental Pulmonary Nodules Detected on CT Images: From the Fleischner Society 2017. Radiology. 2017;284(1):228-243. Laboratory Results WBC 8.14 10^3/uL (3.29-11.43) 03/11/24 19:03 RBC 4.55 10^6/uL (3.85-5.65) 03/11/24 19:03 Hgb 12.90 g/dL (11.27-16.99) 03/11/24 19:03 Hct 41.9 % (37-53) 03/11/24 19:03 MCV 92.1 fl (82-101) 03/11/24 19:03 MCH 28.4 pg (27-33) 03/11/24 19:03 MCHC 30.8 g/dL (30-55) 03/11/24 19:03 RDW 15.9 % (12.1-15.1) H 03/11/24 19:03 Plt Count 135 10^3/cmm (157-399) L 03/11/24 19:03 MPV 10.3 fL (7.4-10.4) 03/11/24 19:03 Neut % (Auto) 50.5 % 03/11/24 19:03 Lymph % (Auto) 22.7 % 03/11/24 19:03 [place] % (Auto) 24.4 % 03/11/24 19:03 Eos % (Auto) 1.1 % 03/11/24 19:03 Baso % (Auto) 0.9 % 03/11/24 19:03 Neut # (Auto) 4.11 10^3/uL (1.8-7.7) 03/11/24 19:03 Lymph # (Auto) 1.9 10^3/uL (0.8-4.8) 03/11/24 19:03 [place] # (Auto) 2.0 10^3/uL (0.2-0.9) H 03/11/24 19:03 Eos # (Auto) 0.1 10^3/uL (0.0-0.8) 03/11/24 19:03 Baso # (Auto) 0.1 10^3/uL (0.0-0.1) 03/11/24 19:03 Nucleated RBC % (auto) 0 % 03/11/24 19:03 Nucleated RBCs # 0.0 /100WBC 03/11/24 19:03 Sodium 135 mmol/L (136-145) L 03/11/24 19:03 Potassium 3.7 mmol/L (3.5-5.1) 03/11/24 19:03 Chloride 101 mmol/L (98-107) 03/11/24 19:03 Carbon Dioxide 22 mmol/L (22-29) 03/11/24 19:03 Anion Gap 15.7 (5-19) 03/11/24 19:03 BUN 6 mg/dL (8-23) L 03/11/24 19:03 Creatinine 0.6 mg/dL (0.7-1.2) L 03/11/24 19:03 GFR Calculation 136.5 mL/min (90-130) H 03/11/24 19:03 Glucose 188 mg/dL (65-115) H 03/11/24 19:03 Calculated Osmolality 283 mOsm/kg (285-295) L 03/11/24 19:03 Calcium 8.2 mg/dL (8.5-10.5) L 03/11/24 19:03 Total Bilirubin 0.4 mg/dL (0.15-1.2) 03/11/24 19:03 AST 8 U/L (0-40) 03/11/24 19:03 ALT 10 U/L (0-41) 03/11/24 19:03 Alkaline Phosphatase 89 U/L (40-130) 03/11/24 19:03 Total Protein 5.5 g/dL (6.6-8.7) L 03/11/24 19:03 Albumin 3.3 g/dL (3.5-5.2) L 03/11/24 19:03 Globulin 2.2 g/dL (1.3-4.6) 03/11/24 19:03 Lipase 22 U/L (13-60) 03/11/24 19:03 Urine Color Yellow (Yellow) 03/11/24 19:40 Urine Appearance Clear (CLEAR) 03/11/24 19:40 Urine pH 5 (5-7) 03/11/24 19:40 Ur Specific [place] 1.020 (1.005-1.030) 03/11/24 19:40 Urine Protein Neg (Negative) 03/11/24 19:40 Urine Glucose (UA) 1+ (Normal) H 03/11/24 19:40 Urine Ketones Negative (Negative) 03/11/24 19:40 Urine Blood Neg (Negative) 03/11/24 19:40 Urine Nitrate Negative (Negative) 03/11/24 19:40 Urine Bilirubin Neg (Negative) 03/11/24 19:40 Urine Urobilinogen Norm mg/dL (Negative) 03/11/24 19:40 Ur Leukocyte Esterase Negative (Negative) 03/11/24 19:40 C. difficile (PCR) Negative (Negative) 03/11/24 21:46 All radiology interpretation(s) finalized by discharge Discharge Plan Discharge Patient Disposition: Home Clinical Impression: Gastroenteritis Condition: Stable Prescriptions: New clotrimazole 1 % ointment 1 applic topical BID 14 Days Qty: 56.7 0RF No Action (DME) Right AFO See Rx Instructions .Route .MEDSUPPLY Qty: 1 0RF Rx Instructions: As directed to the [facility] verapamil 120 mg tablet extended release 120 mg PO DAILY cyclobenzaprine 10 mg tablet 10 mg PO TID PRN (Reason: MUSCLE SPASMS) furosemide 40 mg tablet 40 mg PO DAILY pravastatin 40 mg tablet 40 mg PO DAILY meloxicam 15 mg tablet 15 mg PO DAILY PRN (Reason: PAIN AND INFLAMMATION) ondansetron HCl 4 mg tablet 4 mg PO Q6H PRN (Reason: Nausea) hydroxyzine HCl 50 mg tablet 100 mg PO BEDTIME acyclovir 400 mg tablet 400 mg PO BID omeprazole 40 mg capsule,delayed release(DR/EC) 40 mg PO QAM pentoxifylline 400 mg tablet extended release 400 mg PO TID potassium chloride 20 mEq tablet,ER particles/crystals 40 meq PO BID oxycodone-acetaminophen 10-325 mg tablet See Rx Instructions .ROUTE .COMPLEX Rx Instructions: TAKE 1 OR 2 TABLEST BY MOUTH EVERY 4 TO 6 HOURS NEEDED FOR PAIN. MAX DAILY AMOUNT OF 6 TABLETS. trazodone 150 mg tablet 150 mg PO BEDTIME buspirone 30 mg tablet 30 mg PO TID metformin 1,000 mg tablet 1,000 mg PO BID dexamethasone 4 mg tablet See Rx Instructions .ROUTE .COMPLEX Rx Instructions: TAKE 5 TABLETS BY MOUTH 2 TO 3 HOURS PRIOR TO DARZALEX. metoprolol tartrate 50 mg tablet See Rx Instructions .ROUTE .COMPLEX Rx Instructions: TAKE 100MG BY MOUTH IN THE MORNING AND 1 TABLET IN THE EVENING. gabapentin 300 mg capsule 600 mg PO QID Ventolin HFA 90 mcg/actuation HFA aerosol inhaler 2 puff INHALATION Q4H PRN (Reason: Shortness Of Breath) topiramate 100 mg tablet 100 mg PO DAILY amitriptyline 100 mg tablet 100 mg PO BEDTIME spironolactone 50 mg tablet See Rx Instructions .ROUTE .COMPLEX Rx Instructions: TAKE 1 TABLET BY MOUTH 3 TIMES WEEKLY. diazepam 5 mg tablet 5 mg PO DAILY duloxetine 60 mg capsule,delayed release(DR/EC) 60 mg PO BID lenalidomide 25 mg capsule 25 mg PO DIRECTED Humulin R U-500 (Conc) Kwikpen 500 unit/mL (3 mL) insulin pen 120 unit SUBCUT TID Lantus Solostar U-100 Insulin 100 unit/mL (3 mL) insulin pen 10 unit SUBCUT QPM Qty: 15 0RF Discharge Orders: Discharge ED (Routine); Ordered 03/11/24 Ordered By: Jeovanny Mehta Referrals: Larissa Munoz [Primary Care Provider] - Discharge Diet: Usual diet Discharge Activity: Increase activity as tolerated Patient Instructions: Opioid Safety, Pain Management Activity Restrictions/Additional Instructions: Stool cultures pending. Monitor blood sugars closely. Topical clotrimazole as instructed. Follow-up with your primary care provider for any further evaluation. If you develop any new or concerning symptoms, please return to the emergency department for reevaluation. Coding Level of Care Code ED Sports Doctor for [place]
[2024-03-11 19:25] LABS: Alanine Aminotransferase 10 U/L (0-41); Albumin Level 3.3 g/dL (3.5-5.2); Alkaline Phosphatase 89 U/L (40-130); Aspartate Amino Transferase 8 U/L (0-40); Blood Urea Nitrogen 6 mg/dL (8-23); Calcium 8.2 mg/dL (8.5-10.5); Carbon Dioxide 22 mmol/L (22-29); Chloride 101 mmol/L (98-107); Creatinine Clr Calc Pharmacy 171.8622; Globulin 2.2 g/dL (1.3-4.6); Glomerular Filtration Rate 136.5 mL/min (90-130); Glucose 188 mg/dL (65-115); Lipase 22 U/L (13-60); Osmolality Calculated 283 mOsm/kg (285-295); Sodium 135 mmol/L (136-145); Total Bilirubin 0.4 mg/dL (0.15-1.2); Total Protein 5.5 g/dL (6.6-8.7)
[2024-03-11 19:27] LABS: Anion Gap 15.7 (5-19); Potassium 3.7 mmol/L (3.5-5.1)
[2024-03-11 19:45] LABS: Add Urine Microscopic? NO; Charge for UA Resulting for Rev
[2024-03-11 19:49] LABS: Bilirubin Urine Neg (Negative); Blood Urine Neg (Negative); Glucose Urine UA 1+ (Normal); Ketones Urine Negative (Negative); Leukocyte Esterase Urine Negative (Negative); Nitrate Urine Negative (Negative); Protein Urine Neg (Negative); Urine Appearance Clear (CLEAR); Urine Color Yellow (Yellow); Urobilinogen Urine Norm (Negative); pH Urine 5 (5-7)
--- NOTE | 2024-03-11 19:50 | CTR_ITS ---
PROCEDURE INFORMATION: Exam: CT Abdomen And Pelvis With Contrast Exam date and time: 03/11/2024 8:47 PM Age: 63 years old Clinical indication: Abdominal pain; Acute; Prior surgery; Surgery date: 6+ months; Surgery type: Lle amputation; Additional info: Diarrhea 1.5 weeks, TECHNIQUE: Imaging protocol: Computed tomography of the abdomen and pelvis with contrast. Radiation optimization: All CT scans at this facility use at least one of these dose optimization techniques: automated exposure control; mA and/or kV adjustment per patient size (includes targeted exams where dose is matched to clinical indication); or iterative reconstruction. Contrast material: OMNI 350; Contrast volume: 100 ml; Contrast route: INTRAVENOUS (IV); COMPARISON: CT angio abd aorta runof [id number] 02/10/2024 6:49 PM RADIATION DOSE METRICS: Total DLP (mGy-cm): 1428.53 FINDINGS: Lungs: Scattered bilateral pulmonary nodules. For example there is a 0.9 cm solid pulmonary nodule within the left lower lobe. There is a 0.8 cm subpleural pulmonary nodule within the right lower lobe. Liver: Hypoattenuating hepatic parenchyma suggesting steatosis. Gallbladder and biliary ducts: 1.5 cm stone within the gallbladder. No pericholecystic inflammatory changes to suggest cholecystitis. Pancreas: Normal. No ductal dilation. Spleen: Normal. No splenomegaly. Adrenal glands: Normal. No mass. Kidneys and ureters: Normal. No hydronephrosis. Stomach and bowel: Unremarkable. No obstruction. No mucosal thickening. Appendix: No evidence of appendicitis. Intraperitoneal space: Unremarkable. No free air. No significant fluid collection. Vasculature: Moderate atherosclerotic calcifications. Lymph nodes: Unremarkable. No enlarged lymph nodes. Urinary bladder: Unremarkable as visualized. Reproductive: Unremarkable as visualized. Bones/joints: Redemonstration of numerous compression deformities, unchanged compared to prior CT February 10, 2024. Kyphoplasty material within L1 and L2. Soft tissues: Unremarkable. CT/CT abdomen pelvis w con* [id number] IMPRESSION: 1. 1.5 cm stone within the gallbladder. No pericholecystic inflammatory changes to suggest cholecystitis. 2. Hepatic steatosis. 3. Numerous bilateral pulmonary nodules, largest measuring up to 0.9 cm in the left lower lobe. 4. For patients at low risk (minimal or absent history of smoking and of other known risk factors), recommend CT Chest at 3-6 months, then consider CT Chest at 18-24 months. For patients at high risk (history of smoking or of other known risk factors), recommend CT Chest at 3-6 months, then CT Chest at 18-24 months. (Reference: Triny) REFERENCES: Triny Varner et al. Guidelines for Management of Incidental Pulmonary Nodules Detected on CT Images: From the Fleischner Society 2017. Radiology. 2017;284(1):228-243.
[2024-03-11] MEDS: iohexol 350 mg/mL 500 mL Btl (per mL) IV (20:50)
[2024-03-11 21:40] VITALS: BP 137/68; PULSE 74
[2024-03-11 22:00] VITALS: BP 126/75; PULSE 78; RESP 22; O2SAT 98
[2024-03-11 22:39] LABS: C.Diff PCR (Lab) NEGATIVE (Negative)
[2024-03-11 23:30] VITALS: BP 132/85
[2024-03-12 00:37] VITALS: BP 102/79
== END 2024-03-12 00:22 | disposition home or self-care (01) ==
PROVIDERS: Emergency Provider Physician Assistant; PCP Registered Nurse
DX: K52.9 Noninfective gastroenteritis and colitis, unspecified (principal); Z79.4 Long term (current) use of insulin; I10 Essential (primary) hypertension; E11.9 Type 2 diabetes mellitus without complications; Z79.84 Long term (current) use of oral hypoglycemic drugs
CPT/HCPCS: 36415; 74177; 80053; 81003; 83690; 85025; 87045; 87427; 87449; 87493; 99285; Q9967

== ENCOUNTER → 2024-04-08 08:00 | Outpatient (BNVA) | payer MEDICARE, MEDICAID, SELFPAY | PROVIDERS: PCP Registered Nurse; Visit Provider Podiatrist Foot & Ankle Surgery | DX: I87.2 Venous insufficiency (chronic) (peripheral) (principal); I73.9 Peripheral vascular disease, unspecified; E11.9 Type 2 diabetes mellitus without complications; M66.9 Spontaneous rupture of unspecified tendon; M25.371 Other instability, right ankle; Z79.4 Long term (current) use of insulin; Z79.84 Long term (current) use of oral hypoglycemic drugs | CPT/HCPCS: 99213 ==

== ENCOUNTER → 2024-04-18 09:25 | Outpatient (BNVA) | payer MEDICARE, MEDICAID, SELFPAY | PROVIDERS: PCP Registered Nurse; Visit Provider Podiatrist Foot & Ankle Surgery | DX: L08.9 Local infection of the skin and subcutaneous tissue, unspecified; E11.621 Type 2 diabetes mellitus with foot ulcer; L97.511 Non-pressure chronic ulcer of other part of right foot limited to breakdown of skin; I87.2 Venous insufficiency (chronic) (peripheral); I73.9 Peripheral vascular disease, unspecified; M66.271 Spontaneous rupture of extensor tendons, right ankle and foot; M25.371 Other instability, right ankle; Z79.84 Long term (current) use of oral hypoglycemic drugs; Z79.4 Long term (current) use of insulin | CPT/HCPCS: 73630; 99213 ==

== ENCOUNTER 2025-04-11 19:41 | Emergency (ER) | payer OTHER, MEDICAID, SELFPAY ==
--- NOTE | 2025-04-11 19:42 | XRR_ITS ---
PROCEDURE INFORMATION: Exam: XR Chest Exam date and time: 04/11/2025 8:02 PM Age: 64 years old Clinical indication: Pain; Chest pressure; Additional info: Cp TECHNIQUE: Imaging protocol: Radiologic exam of the chest. Views: 1 view. COMPARISON: CT abdomen pelvis w con* [id number] 03/11/2024 8:47 PM FINDINGS: Lungs: Minimal left basilar atelectasis. Right lung is clear. Mild hypoaeration. No lobar consolidation. Pleural spaces: Unremarkable. No pleural effusion. No pneumothorax. Heart/Mediastinum: Unremarkable. No cardiomegaly. Bones/joints: Unremarkable. XR/XR chest 1V portable [id number] IMPRESSION: Minimal left basilar atelectasis.
--- NOTE | 2025-04-11 19:42 | ECG_ITS ---
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 Measurements Intervals [place] Rate: 81 P: 20 [place]: 142 QRS: 46 QRSD: 98 T: 48 QT: 383 QTc: 447 Interpretive Statements SINUS RHYTHM No previous ECG available for comparison Electronically Signed On 04-12-2025 08:42:28 CDT by Colby Brandon M.D. [id number]
[2025-04-11 19:45] VITALS: BP 109/67; PULSE 83; RESP 18; TEMP 37; O2SAT 95; BMI 35.6
--- OUTSIDE RECORDS SUMMARY | 2025-04-11 19:47 | XMS_ITS | Clinical Summary ---
Author Organization [facility] [place] Address [address] [place] [address] Care Team Providers Care Parts Finisher Name Role Phone Unavailable Primary Care Provider Unavailabl e Social History Tobacco Use Types Packs/Day Years Used Date Smoking Tobacco: Never Assessed Sex and Gender Information Value Date Recorded Sex Assigned at Not on file Legal Sex Male 10:52 AM CDT Gender Identity Not on file Sexual Orientation Not on file Plan of Treatment Health Maintenance Due Date Last Done Comments Medicare Annual Wellness 1960 Td, Tdap Vaccines Adult 1980 Colonoscopy 2006 Pneumococcal Vaccine: 50+ Ye ars (1 of 1 - PCV) 2011 Shingrix (ZOSTER RECOMBINANT ) (1 of 2) 2011 Influenza Vaccination (#1) 2025 RSV 60+ (1 - 1-dose 75+ series) 2036 HIB Vaccines Aged Out No longer eligi ble based on patient's age to complete this topic HPV Vaccines Aged Out No longer eligi ble based on patient's age to complete this topic Hepatitis A Vaccines Aged Out No long er eligible based on patient's age to complete this topic Hepatitis B Vaccines Aged Out No long er eligible based on patient's age to complete this topic IPV Vaccines Aged Out No longer eligi ble based on patient's age to complete this topic Meningococcal Vaccines Aged Out No lo nger eligible based on patient's age to complete this topic RSV Mab Nirsevimab (Beyfortu s) <20 months Aged Out No longer eligible b ased on patient's age to complete this topic Rotavirus Vaccines Aged Out No longer eligible based on patient's age to complete this topic Insurance MEDICARE [facility]
--- OUTSIDE RECORDS SUMMARY | 2025-04-11 19:47 | XMS_ITS | Encounter Summary ---
Author Organization [facility] Address [address] [place] [address] Care Team Providers Care Car Park Attendant Name Role Phone Unavailable Primary Care Provider Unavailabl e Encounter Details Date Type Department Care Team (Late st Contact Info) Description 10/26/2010 Orders Only [facility] Radiology [address] [facility] [place] [address] System, Provider Not In, [address] [facility] [address] Social History Tobacco Use Types Packs/Day Years Used Date Smoking Tobacco: Never Assessed Sex and Gender Information Value Date Recorded Sex Assigned at Not on file Legal Sex Male 10:52 AM CDT Gender Identity Not on file Sexual Orientation Not on file documented as of this encounter Plan of Treatment Not on file documented as of this encounter Procedures Procedure Name Priority Date/Time Associated Diagnosis Comments OUTSIDE IMAGES 10/26/2010 3:07 PM TEXTURE ARTIST documented in this encounter Results * Outside Images (10/26/2010 3:07 PM TEXTURE ARTIST) Anatomical Region Laterality Modality N/A Radiographic Ya ging 10/26/2010 3:07 PM TEXTURE ARTIST Narrative 10/26/2010 3:07 PM TEXTURE ARTIST Historic images from [facility] exist and can be viewed by using the hyperlink to access [employer] pacs: C Spine 2 or 3 Views Procedure Note System, Provider Not In - 08/09/2018 Historic images from [facility] exist and can be viewed by using thehyperlink to access [facility] pacs: C Spine 2 or 3 Views us Provider Not In System MD [facility] Final Result documented in this encounter Visit Diagnoses Not on filedocumented in this encounter
--- OUTSIDE RECORDS SUMMARY | 2025-04-11 19:47 | XMS_ITS | Encounter Summary ---
Author Organization [facility] Address [address] [place] [address] Care Team Providers Care Sales Consultant Name Role Phone Ekaterina Santillan MD Primary Care Provider Encounter Details Date Type Department Care Team (Late st Contact Info) Description 03/20/2012 Ancillary Orders [facility] Emergency Medicine [address] [place] [id number] Ernie Talamantes D, DO [address] [place] [address] Trauma Social History Tobacco Use Types Packs/Day Years Used Date Smoking Tobacco: Never Cigarettes Smokeless Tobacco: Current Snuff Comments:one can every 2 day s Alcohol Use Standard Drinks/Week Comments No 0 (1 standard drink = 0.6 oz pur e alcohol) Sex and Gender Information Value Date Recorded Sex Assigned at Not on file Legal Sex Male 10:57 AM [facility] Gender Identity Not on file Sexual Orientation Not on file Occupation Industry Job Start Date Job End Date Not on file Not on file Not on file Not on file documented as of this encounter Plan of Treatment Not on file documented as of this encounter Procedures Procedure Name Priority Date/Time Associated Diagnosis Comments XR PELVIS 1 OR 2 VW Stat 03/20/2012 1 2:45 AM CDT Trauma documented in this encounter Results * XR HIP 2+ VW RIGHT (03/20/2012 11:04 AM CDT) Anatomical Region Laterality Modality Lower Extremity Right Computed Radiogr aphy 03/20/2012 10:4 5 AM CDT Narrative 03/20/2012 10:58 PM CDT DESCRIPTION AP view of the right hip and Cleave's view of the right hip 20 March 2012 show no acute fracture or deformity. There is some osteophyte of the acetabular rim. IMPRESSION osteoarthritis with no acute fractures Procedure Note Florentino Holly MD - 03/20/2012 DESCRIPTION AP view of the right hip and Cleave's view of the right hip 20 March 2012 show no acute fracture or deformity. There is some osteophyte of the acetabular rim. IMPRESSION osteoarthritis with no acute fractures us Ernie Bazan Spoon DO DIAGNOSTIC IMAGING ORDERABLES F inal Result * XR PELVIS 1 OR 2 VW (03/20/2012 12:45 AM CDT) Anatomical Region Laterality Modality Pelvis Computed Radiogr aphy 03/20/2012 12:4 2 AM CDT Narrative 03/20/2012 10:52 PM CDT DESCRIPTION AP view of the pelvis 0028 hours 20 March 2012 shows no pelvic fracture, diastases, or deformity. Panniculus artifact is noted. No soft tissue masses or calcifications are appreciated. IMPRESSION normal AP view the pelvis Procedure Note Florentino Holly MD - 03/20/2012 DESCRIPTION AP view of the pelvis 0028 hours 20 March 2012 shows no pelvic fracture, diastases, or deformity. Panniculus artifact is noted. No soft tissue masses or calcifications are appreciated. 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
--- OUTSIDE RECORDS SUMMARY | 2025-04-11 19:47 | XMS_ITS | Encounter Summary ---
Author Organization [facility] Address [address] [place] [address] Care Team Providers Care Rn Disease Management Name Role Phone Ekaterina Santillan MD Primary Care Provider [phone] Reason for Referral * Outpatient Services (Routine) - Closed Specialty Diagnoses / Procedures Referred By Timo t Referred To Contact Diagnoses Pain Procedures MRI PELVIS WO CONTRAST Oscar Dangelo MD [address] [address] Phone: tel: fax: Referral ID Status Reason Start Date Expiration Date Visits Re quested Visits Authorized [id number] Closed 03/26/2012 03/26/2013 1 1 Encounter Details Date Type Department Care Team (Late st Contact Info) Description 03/26/2012 Ancillary Orders [facility] Imaging Services [address] [place] [address] Oscar Dangelo MD [address] [address] Pain Social History Tobacco Use Types Packs/Day Years Used Date Smoking Tobacco: Never Cigarettes Smokeless Tobacco: Current Snuff Comments:one can every 2 day s Alcohol Use Standard Drinks/Week Comments No 0 (1 standard drink = 0.6 oz pur e alcohol) Sex and Gender Information Value Date Recorded Sex Assigned at Not on file 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 Stable appearance of abnormal marrow replacement of the first, second and third sacral segments as described above concerning for osseous metastatic disease however appears relatively stable when compared to the prior examination, differential diagnosis would include old fracture deformity with development of solid aneurysmal bone cyst. Further evaluation with nuclear medicine bone scan is recommended to assess for a more polyostotic process. 2. The marrow signal abnormality of sacrum was present on the 12/17/2009 exam. Findings appear relatively stable. 3. Abnormal bilateral short axis diameter inguinal lymph nodes. rli - uploaded from [employer] - Narrative 03/26/2012 12:06 PM CDT Exam: MRI PELVIS WO CONTRAST Date/Time of Exam: Mar 26, 2012 09:40:00 AM Reason For Exam: GENERALIZED PAIN. Technique: T1 axial and coronal, T2 fat-sat axial, STIR coronal. Comparison: AP pelvis and two view right hip 03/20/2012. MRI lumbar spine without contrast 12/17/2009. Findings: Degenerative disc disease of the imaged lower lumbar spine is identified. Multilevel moderate to marked facet degenerative change of the imaged lower lumbar spine is identified. There is abnormal marrow replacement involving the posterior aspect of the right first sacral ala with extension into the right first sacral segment posteriorly and extension inferiorly into the right second sacral ala and right second sacral segment noted. Extension into the left aspect of the second and third sacral segment is noted. Corresponding increase in signal on fluid sensitive sequences is identified. No definite MRI evidence of a discrete fracture line is present. The sacroiliac physiologic hip effusions are present. T2 fat-sat images are degraded by incomplete fat saturation. The musculature of the pelvis and proximal imaged thighs is symmetric and normal in signal. No significant joint space loss or productive change of either hip is identified. No additional concerning marrow signal abnormality is identified. Subcentimeter short axis diameter bilateral inguinal lymph nodes are present. A 1.1 cm abnormal short axis diameter right inguinal lymph node on image 28 of series 10 is present. A 1.3 cm abnormal short axis diameter lymph node in the left inguinal region on image 24 of series 10 is identified. 1.7 cm abnormal short axis diameter right inguinal lymph node is present. An additional 1.7 cm abnormal short axis diameter left inguinal lymph node is seen. Mild diverticular change of the sigmoid colon is present. Further evaluation with intravenous contrast may be of benefit. Procedure Note OnNed walter MD - 03/26/2012 Exam: MRI PELVIS WO CONTRAST Date/Time of Exam: Mar 26, 2012 09:40:00 AM Reason For Exam: GENERALIZED PAIN. Technique: T1 axial and coronal, T2 fat-sat axial, STIR coronal. Comparison: AP pelvis and two view right hip 03/20/2012. MRI lumbar spine without contrast 12/17/2009. Findings: Degenerative disc disease of the imaged lower lumbar spine is identified. Multilevel moderate to marked facet degenerative change of the imaged lower lumbar spine is identified. There is abnormal marrow replacement involving the posterior aspect of the right first sacral ala with extension into the right first sacral segment posteriorly and extension inferiorly into the right second sacral ala and right second sacral segment noted. Extension into the left aspect of the second and third sacral segment is noted. Corresponding increase in signal on fluid sensitive sequences is identified. No definite MRI evidence of a discrete fracture line is present. The sacroiliac physiologic hip effusions are present. T2 fat-sat images are degraded by incomplete fat saturation. The musculature of the pelvis and proximal imaged thighs is symmetric and normal in signal. No significant joint space loss or productive change of either hip is identified. No additional concerning marrow signal abnormality is identified. Subcentimeter short axis diameter bilateral inguinal lymph nodes are present. A 1.1 cm abnormal short axis diameter right inguinal lymph node on image 28 of series 10 is present. A 1.3 cm abnormal short axis diameter lymph node in the left inguinal region on image 24 of series 10 is identified. 1.7 cm abnormal short axis diameter right inguinal lymph node is present. An additional 1.7 cm abnormal short axis diameter left inguinal lymph node is seen. Mild diverticular change of the sigmoid colon is present. Further evaluation with intravenous contrast may be of benefit. IMPRESSION Impression: 1. Stable appearance of abnormal marrow replacement of the first, second and third sacral segments as described above concerning for osseous metastatic disease however appears relatively stable when compared to the prior examination, differential diagnosis would include old fracture deformity with development of solid aneurysmal bone cyst. Further evaluation with nuclear medicine bone scan is recommended to assess for a more polyostotic process. 2. The marrow signal abnormality of sacrum was present on the 12/17/2009 exam. Findings appear relatively stable. 3. Abnormal bilateral short axis diameter inguinal lymph nodes. 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
--- OUTSIDE RECORDS SUMMARY | 2025-04-11 19:47 | XMS_ITS | Encounter Summary ---
Author Organization [facility] Address [address] [place] [address] Care Team Providers Care Major Appliance Assembly Supervisor Name Role Phone Ekaterina Santillan MD Primary Care Provider Reason for Referral * Radiology Services (Routine) - Closed Specialty Diagnoses / Procedures Referred By Timo alvares Referred To Contact Orthopedic Surgery Diagnoses Pain Procedures US GUIDE NEEDLE PLACEMENT Erlin Nash PA [address] [place] [address] Phone: tel: fax: [facility] [address] [place] [address] Phone: tel: fax: Referral ID Status Reason Start Date Expiration Date Visits Requested Visits Authorized [id number] Closed Performing Department to Schedule 09/17/2020 10/18/2021 1 1 E PROCESSOR Encounter Details Date Type Department Care Team (Late st Contact Info) Description 09/17/2020 Ancillary Orders [facility] [id number] [place] [address] Erlin Nash PA [address] [place] [address] Pain Social History Tobacco Use Types Packs/Day Years Used Date Smoking Tobacco: Never Cigarettes Smokeless Tobacco: Current Chew Comments:one can every 2 day s Alcohol Use Standard Drinks/Week Comments No 0 (1 standard drink = 0.6 oz pur e alcohol) Social Connections Answer Date Recorded In a typical week, how many times do you talk on the phone with family, friends, or neighbors? More than three times a week 05/27/2020 How often do you get togethe r with friends or relatives? More than three times a week 05/27/2020 How often do you attend chur ch or jewish services? 1 to 4 times per year 05/27/2020 Do you belong to any clubs o r organizations such as scientology groups, unions, fraternal or athletic groups, or school groups? No 05/27/2020 How often do you attend meet ings of the clubs or organizations you belong to? Never 05/27/2020 Are you , , di vorced, , never , or living with a partner? 05/27/2020 Financial Resource Strain Answer Date R ecorded How hard is it for you to pa y for the very basics like food, housing, medical care, and heating? Not hard at all 05/27/2020 Food Insecurity Answer Date Recorded Within the past 12 months, y ou worried that your food would run out before you got the money to buy more. Never true 05/27/20 20 Within the past 12 months, t he food you bought just didn't last and you didn't have money to get more. Never true 05/27/2020 Transportation Needs Answer Date Record ed In the past 12 months, has l ack of transportation kept you from medical appointments or from getting medications? No 02/2020 In the past 12 months, has l ack of transportation kept you from meetings, work, or from getting things needed for daily living? No 05/27/2020 Education Answer Date Recorded What is the highest level of school you have completed or the highest degree you have received? 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 No / Unsure 09/17/2020 7:34 AM TITLE PROCESSOR documented as of this encounter Plan of Treatment Scheduled Orders Name Type Priority Associated Diagnoses Orde r Schedule US GUIDE NEEDLE PLACEMENT Imaging Routine Pain 1 Occurrences starting 09/17/2020 until 09/17/2021 documented as of this encounter Visit Diagnoses Diagnosis Pain Generalized pain documented in this encounter Additional Health Concerns Infection Onset Date Last Indicated Resolved Time MRSA 03/07/2017 03/07/2017 Assessment Noted Time PHQ-9 Depression Total Score: 3 05/27/20 20 9:58 AM CDT documented as of this encounter Care Teams Major Appliance Assembly Supervisor Relationship Specialty Start Date End Date Ekaterina Santillan MD [address] [facility] [address] [place] [address] PCP - General Family Practice 10/08/20 documented as of this encounter
--- OUTSIDE RECORDS SUMMARY | 2025-04-11 19:47 | XMS_ITS | Encounter Summary ---
Author Organization [facility] Address [address] [place] [address] Care Team Providers Care Merchandise Manager Name Role Phone Ekaterina Santillan MD Primary Care Provider Reason for Referral * Outpatient Services (Routine) - Closed Specialty Diagnoses / Procedures Referred By Timo t Referred To Contact Diagnoses Sacral lesion Procedures CT BIOPSY BONE Brian Bah MD [address] [employer] [address] [address] Phone: tel: fax: Referral ID Status Reason Start Date Expiration Date Visits Re quested Visits Authorized [id number] Closed 04/19/2012 04/19/2013 1 1 Encounter Details Date Type Department Care Team (Late st Contact Info) Description 04/19/2012 Ancillary Orders [facility] [address] [place] [address] Brian Bah MD [address] [employer] [address] [address] Sacral lesion Social History Tobacco Use Types Packs/Day Years Used Date Smoking Tobacco: Never Cigarettes Smokeless Tobacco: Current Chew Comments:one can every 2 day s Alcohol Use Standard Drinks/Week Comments No 0 (1 standard drink = 0.6 oz pur e alcohol) Sex and Gender Information Value Date Recorded Sex Assigned at Not on file 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 Gender Identity Not on file Sexual Orientation Not on file Occupation Industry Job Start Date Job End Date Not on file Not on file Not on file Not on file Not on file Not on file Not on file Not on file documented as of this encounter Plan of Treatment Not on file documented as of this encounter Results * CT BIOPSY BONE (05/02/2012 3:20 PM CDT) Anatomical Region Laterality Modality Computed Tomogra phy, Other 05/02/2012 12:4 0 PM CDT Narrative 05/02/2012 4:28 PM CDT Exam: CT BIOPSY BONE Date/Time of Exam: May 02, 2012 03:20:00 PM Reason For Exam: DISORDERS OF SACRUM Clinical indication: 51 year-old male patient with a known lesion of the right sacrum region (as demonstrated by CT and MRI studies) and request has been submitted for a percutaneous biopsy/aspiration. Procedures: 1. Monitored anesthesia care provided by the anesthesiologist/QUILT MAKER. 2. Preliminary CT images through the region of interest. 3. CT/fluoro guided needle placement and biopsy/aspiration. Procedures in Detail, Technique and Findings/Impression: The procedures, the indications, the alternatives, the potential benefits and the risks were discussed with the patient and his family members, their questions were answered, and with the signed consent, the patient was situated prone within the CT system. With IV sedation administered by the anesthesiologist/QUILT MAKER, preliminary CT images were obtained to localize the right sacrum region of interest. Then with CT/fluoro guidance, sterile technique, and SQ/IM lidocaine, an osteo-introducer needle was placed from a right posterior oblique approach. Through that, a series of core specimen were obtained, to include aspiration, and the specimen were sent for laboratory analyses. The needles were removed, and completion images demonstrated no hemorrhage. Skin entry hemostasis was obtained and a sterile dressing was applied. There were no immediate procedure related complications, and the estimated blood loss is minimal. Post-procedure, the patient was transported to the PACU. From there, the plan is to discharge the patient to home with his family. hermilo - uploaded from [employer] - Procedure Note Shiva Morgan MD - 05/02/2012 Exam: CT BIOPSY BONE Date/Time of Exam: May 02, 2012 03:20:00 PM Reason For Exam: DISORDERS OF SACRUM Clinical indication: 51 year-old male patient with a known lesion of the right sacrum region (as demonstrated by CT and MRI studies) and request has been submitted for a percutaneous biopsy/aspiration. Procedures: 1. Monitored anesthesia care provided by the anesthesiologist/QUILT MAKER. 2. Preliminary CT images through the region of interest. 3. CT/fluoro guided needle placement and biopsy/aspiration. Procedures in Detail, Technique and Findings/Impression: The procedures, the indications, the alternatives, the potential benefits and the risks were discussed with the patient and his family members, their questions were answered, and with the signed consent, the patient was situated prone within the CT system. With IV sedation administered by the anesthesiologist/QUILT MAKER, preliminary CT images were obtained to localize the right sacrum region of interest. Then with CT/fluoro guidance, sterile technique, and SQ/IM lidocaine, an osteo-introducer needle was placed from a right posterior oblique approach. Through that, a series of core specimen were obtained, to include aspiration, and the specimen were sent for laboratory analyses. The needles were removed, and completion images demonstrated no hemorrhage. Skin entry hemostasis was obtained and a sterile dressing was applied. There were no immediate procedure related complications, and the estimated blood loss is minimal. Post-procedure, the patient was transported to the PACU. From there, the plan is to discharge the patient to home with his family. hermilo - uploaded from [employer] - Brian Bah MD CT ORDERABLES Final Result documented in this encounter Visit Diagnoses Diagnosis Sacral lesion Disorders of sacrum Sacral lesion Disorders of sacrum documented in this encounter Additional Health Concerns Infection Onset Date Last Indicated Resolved Time MRSA 03/07/2017 03/07/2017 R/O COVID-19 05/29/2020 05/29/2020 05/31/2020 12:4 6 AM CDT COVID-19 05/29/2020 05/29/2020 06/28/2020 8:09 PM PERSONNEL ANALYST documented as of this encounter Care Teams Merchandise Manager Relationship Specialty Start Date End Date Ekaterina Santillan MD [address] [address] PCP - General Family Practice 10/08/20 documented as of this encounter
--- OUTSIDE RECORDS SUMMARY | 2025-04-11 19:47 | XMS_ITS | Clinical Summary ---
Author Organization [facility] Address [address] [place] [address] Care Team Providers Care Freight Manager Name Role Phone Ekaterina Santillan MD Primary Care Provider Allergies Active Allergy Reactions Criticality Noted Date Comments Gamma Immune Glob From Whey Itching Low 03/07/2010 Influenza Virus Vac Qv 20-21 (4 Yrs Up)Cell Deriv. 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 Medications * This document contains information received from the source organization and may not represent a complete record from that organization. cholecalciferol, Vitamin D3, (VITAMIN D-3) 2,000 unit Oral Tab Take 4,000 Units by mouth daily. Active Blood-Glucose Meter Misc Kit 1 Kit 0 05/29/20 13 Active cycloSPORINE (RESTASIS) 0.05 % emulsionIndicati ons:Keratoconjun ctivitis sicca not specified as Sjogren's, bilateral Administer 1 Drop in both eyes 2 times daily 90 DAY SUPPLY. 180 Vial 3 10/06/19 17 Active HYDROcodone-acet aminophen (NORCO) 10-325 mg TabletIndication s:Filled by [facility] [place] Take 1 Tablet by mouth every 4 hours as needed for Pain, Moderate . Active prochlorperazine maleate (COMPAZINE) 10 mg tabletIndication s:Multiple myeloma in remission (CMS/HCC) Take 1 Tablet (10 mg) by mouth every 6 hours as needed for Nausea/Emesis. 30 Tablet 3 01/27/20 20 Active diphenhydrAMINE (BENADRYL) 25 mg capsule Take 1 Capsule (25 mg) by mouth every 6 hours as needed for Allergies or Itching. 40 Capsule 1 02/20/20 20 Active Insulin [place], Disposable, (BD Ultra-Fine Mini Pen Needle) 31 gauge x 3/16 NeedleIndication s:Multiple myeloma in remission ([facility]),Type 2 diabetes mellitus without complication, with long-term current use of insulin ([facility]),Tetrap legia ([facility]),Guilla in-Greig,Seizure disorder ([facility]),Morbid obesity with BMI of 45.0-49.9, adult ([facility]),Chroni c low back pain with sciatica, sciatica laterality unspecified, unspecified back pain laterality,Cellu litis of left lower extremity Inject bid; Dx: E11.9, 100 Each 6 04/22/20 20 Active flash glucose sensor (FreeStyle Emery 14 Day Sensor) Kit 1 Applicator by [facility].(Non-Drug; Combo Route) route daily. Change site every 2 days 2 Kit 6 05/12/20 20 Active ondansetron (Zofran) 4 mg Tablet Take 1 Tablet (4 mg) by mouth every 8 hours as needed for Nausea/Emesis. 30 Tablet 11 05/28/20 20 Active verapamiL (VERELAN) 120 mg Sustained Release 24 hour capsuleIndicatio ns:Recurrent occipital headache,Multipl e myeloma in remission ([facility]),Diabet es mellitus, type II, insulin dependent ([facility]),Seizur e disorder ([facility]) Take 1 Capsule (120 mg) by mouth daily. For blood preasure and to prevent headache 90 Capsule 1 07/22/20 20 Active magnesium oxide 500 mg Tablet Take 500 mg by mouth daily. 90 Tablet 07/27/20 20 Active calcium as carbonate (Calcium 500) 1,250 mg (500 mg elemental) tablet Take 1 Tablet (500 mg) by mouth daily at bedtime. 30 Tablet 07/27/20 20 Active albuterol HFA 90 mcg inhaler Take 2 Puffs by inhalation every 4 hours as needed for Other (See Comment) (SOB, Cough, Wheeze). 8.5 Gram 11 08/03/20 Active ipratropium-albu teroL (COMBIVENT RESPIMAT) 20-100 mcg/actuation Mist Take 1 Puff by inhalation every 6 hours. 4 Gram 08/03/20 Active gabapentin (NEURONTIN) 300 mg capsule Take 2 capsules in am, 1 at noon, 2 in the evening, 2 bedtime 630 Capsule 09/02/19 Active traZODone (DESYREL) 50 mg tablet Take 1 Tablet (50 mg) by mouth daily at bedtime. 90 Tablet 09/02/19 Active omeprazole magnesium (PriLOSEC OTC) 20 mg Tablet, Delayed Release (E.C.) Take 1 Tablet (20 mg) by mouth daily. 90 Tablet 09/03/19 Active OTHER vitaman b12 Once a week for 4 weeks then once a month Active blood sugar diagnostic ([employer] Verio test strips) Strip Check blood sugar 3 x daily ICD-10-CM: E11.9 100 Each 6 10/13/19 21 Active meloxicam (MOBIC) 7.5 mg tabletIndication s:Multiple myeloma in remission (CMS/HCC),Type 2 diabetes mellitus without complication, with long-term current use of insulin (CMS/HCC),Tetrap legia (CMS/HCC),Guilla in-Greig,Seizure disorder (CMS/HCC),Morbid obesity with BMI of 45.0-49.9, adult (CMS/HCC),Chroni c low back pain with sciatica, sciatica laterality unspecified, unspecified back pain laterality,Cellu litis of left lower extremity Take 1 Tablet (7.5 mg) by mouth daily. 90 Tablet 10/22/19 Active chlorhexidine gluconate 0.12 % Mouthwash 5 mL by Mouth/Throat route 2 times daily. Rinse and spit twice daily 300 mL 2 10/23/19 21 Active insulin regular human U-500 concentrated (HumuLIN-R U-500, Conc, Kwikpen) 500 unit/mL (3 mL) pen Inject 120 units in AM and noon and 110 units at night 24 mL 5 10/27/19 21 Active metoprolol tartrate (LOPRESSOR) 50 mg tablet Take 2 tablets in morning, 1 tablet in evening 360 Tablet 1 03/18/20 21 Active cephALEXin (KEFLEX) 500 mg capsule Take 1 Capsule (500 mg) by mouth 4 times daily. 40 Capsule 11/20/19 Active Syringe with Needle, Disp, 3 mL 23 gauge x 1 1/2 Syringe To be used for intramuscular injections of B12 25 Each 1 12/02/19 Active tiZANidine (ZANAFLEX) 4 mg Tablet Take 1 Tablet (4 mg) by mouth every 6 hours as needed for Spasm. 360 Tablet 1 12/08/19 Active acyclovir (ZOVIRAX) 400 mg tabletIndication s:Multiple myeloma, remission status unspecified (CMS/HCC) Take 1 Tablet (400 mg) by mouth 2 times daily. 60 Tablet 3 12/10/19 Active amitriptyline (ELAVIL) 100 mg tablet Take 1 Tablet (100 mg) by mouth daily at bedtime. 90 Tablet 1 12/10/19 Active SUMAtriptan (Imitrex) 50 mg tabletIndication s:Multiple myeloma in remission (CMS/HCC),Tetrap legia (CMS/HCC),Guilla in-Greig,Seizure disorder (CMS/HCC),Morbid obesity with BMI of 45.0-49.9, adult (CMS/HCC),Chroni c low back pain with sciatica, sciatica laterality unspecified, unspecified back pain laterality may repeat in 2 hours; max dose 200mg in 24 hours 9 Tablet 5 12/22/19 Active diazePAM (Valium) 5 mg tabletIndication s:Multiple myeloma in remission (CMS/HCC),Claust rophobia Take 1 tablet 30 minutes prior to PET. May take 2nd tablet if needed. 2 Tablet 12/22/19 Active nicotine (NICODERM CQ) 21 mg/24 hr patch Apply 1 Patch to skin as directed every 24 hours. 30 Patch 3 12/31/19 Active cyanocobalamin (VITAMIN B-12) 1,000 mcg/mL Solution 1 mL to be given intramuscularly every week for 4 weeks and then once a month thereafter 30 mL 1 12/31/19 Active aspirin (ECOTRIN EC) 81 mg Tablet, Delayed Release (E.C.) Take 1 Tablet (81 mg) by mouth daily. 90 Tablet 3 01/06/20 Active dexAMETHasone (DECADRON) 4 mg tablet Take 2.5 Tablets (10 mg) by mouth every 7 days. 33 Tablet 01/07/20 Active pravastatin (PRAVACHOL) 40 mg tablet Take 1 Tablet (40 mg) by mouth late in the day. 90 Tablet 1 01/07/20 Active furosemide (LASIX) 40 mg tablet Take 1 Tablet (40 mg) by mouth daily. 90 Tablet 1 01/07/20 Active hydrOXYzine HCL (ATARAX) 50 mg tablet Take 2 po hs for sleep 180 Tablet 1 01/07/20 Active metFORMIN (GLUCOPHAGE) 1,000 mg tablet Take 1 Tablet (1,000 mg) by mouth 2 times daily with meals. 180 Tablet 1 01/07/20 21 Active potassium chloride (KLOR-CON) 20 mEq Extended Release tablet Take 1 Tablet (20 mEq) by mouth 2 times daily. 180 Tablet 1 01/07/20 21 Active lenalidomide (Revlimid) 25 mg capsuleIndicatio ns:Multiple myeloma in remission (CMS/HCC) Take 1 capsule by mouth once daily for 21 days, then 7 days off Auth: [id number] 21 Capsule 10 01/14/20 Active topiramate (Topamax) 100 mg tabletIndication s:Nonintractable migraine, unspecified migraine type Take 1 Tablet (100 mg) by mouth daily. To prevent headaches and for seizure disorder 90 Tablet 1 02/10/20 Active Hospital, Clinic, or Other Facility Administered Medication Ordered Dose Route Frequency Start Date End Date Status cyanocobalamin (VITAMIN B-12) injection 1,000 mcgIndications:Vitamin B12 deficiency (non anemic) 1000 mcg IM EVERY MONTH 01/26/2021 Active Active Problems Patient Care Coordination No te Formatting of this note migh t be different from the original. Protocol: [id number], NCT# [id number], Study Treatment is Lenalidomide + Dexamethasone in a Clinical Trial for Multiple Myeloma. Dr.Rajesh Styles is the Moving Picture Producer. Dr. Kassie Robison is the patient's physician. Both can be reached at [phone] or research coordinator: Jayla Daugherty RN at [phone] if questions. Problem Noted Date Diagnosed Date Tremor 10/02/2018 Type 2 diabetes mellitus wit h hyperglycemia, with long-term current use of insulin 01/04/2018 Keratoconjunctivitis sicca n ot specified as Sjogren's, bilateral 11/10/2017 Inflammatory hyperkeratotic dermatosis 7 Tinea pedis of both feet 03/10/2017 Cellulitis of left lower extremity 03/07/2017 Uncontrolled type 2 diabetes mellitus with hyper glycemia 03/07/2017 Immunosuppressed status 03/07/2017 MRSA (methicillin resistant Staphylococcus aureu s) 03/07/2017 Diabetes mellitus, type II, insulin dependent Screening for colon cancer 10/11/2016 Left shoulder pain 10/07/2016 Morbid obesity with BMI of 45.0-49.9, adult 09/21 Type 2 diabetes mellitus without ophthalmic wilma festations 10/06/2016 Type 2 diabetes mellitus treated with insulin Obesity (BMI 35.0-39.9 without comorbidity) 03/2016 Chewing tobacco dependence 05/26/2015 Essential tremor 04/16/2015 Preoperative general physical examination 2013 Contracture of joint of right hand 12/10/2013 Multiple myeloma 02/07/2013 Examination of participant in clinical trial Multiple myeloma 05/21/2012 Cancer Staging:Clinical:Stage IB- Signed by Kassie Robison DO on 04/30/2020 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 Enlargement of lymph nodes 05/11/2012 Sacral lesion 03/27/2012 Idiopathic peripheral neuropathy 12/16/2010 Chronic left shoulder pain 10/07/2010 Overview (10/07/2010): Remote h/o dislocation Tetraplegia 10/07/2010 Low back pain 03/17/2010 HTN (hypertension) 03/01/2010 Vitamin B12 deficiency 03/01/2010 Obesity 02/26/2010 Fracture of great toe 12/30/2009 Diabetes mellitus, type 2 12/25/2009 Closed Fracture of Right 1st Metatarsal Bone(s) 4-29-10 12/23/2009 Peripheral edema 12/23/2009 Bilateral sensory deficit present 12/23/2009 Guillain-Greig Seizure disorder Overview (12/10/2013): last seizure 2010 Resolved Problems Problem Noted Date Diagnosed Date Resolved Date Skin ulcer of left lower leg 04/11/2019 09/04/2019 Cellulitis of lower leg 04/16/201304/21 Chronic inflammatory demyeli nating polyneuropathy 12/21/2009 12/16/2010 Immunizations Immunization Administration Dates Next Due (ADACEL/BOOSTRIX)(10 YR UP) TDAP VACCINE, 0.5ML, IM 01/09/2013 Human Immune Globulin IV 04/16/2010,03/22,04/14/2010,2009,04/12/2010,02/23/2010,02/22/2010,0 02/21/2010,02/20/2010,02/19/2010, 010,12/22/2009,12/21/2009,12/20/2009, Influenza Seasonal Unspecifi ed Formulation IM 06/21/2009 Family History Medical History Relation Name Comments Lung Cancer Father Heart Disease Mother Lung Cancer Mother Blindness Neg Hx Glaucoma Neg Hx Macular Degen Neg Hx Relation Name Status Comments Father Mother Social History Tobacco Use Types Packs/Day Years Used Date Smoking Tobacco: Never Cigarettes Smokeless Tobacco: Former Chew Tobacco Cessation:Ready to Q uit: No; Counseling Given: Yes Comments:one can every 2 days Alcohol Use Standard Drinks/Week Comments No 0 [...] often do you attend chur ch or jew services? 1 to 4 times per year 05/27/2020 Do you belong to any clubs o r organizations such as zoroastrian groups, unions, fraternal or athletic groups, or [...] on file Legal Sex Male 10:57 AM SURGICAL NURSE Gender Identity Not on file Sexual Orientation Not on file Occupation Industry Job Start Date Job End Date Not on file Not on file Not on file Not on file Not on file Not on file Not on file Not on file Last Filed Vital Signs Vital Sign Reading Time Taken Comments Blood Pressure 124/64 02/11/2021 10:57 AM CDT Pulse 71 02/11/2021 10:57 AM CDT Temperature 36 C (96.8 F) 02/11/2021 10:57 AM CDT Respiratory Rate 19 01/26/2021 10:36 AM CDT Oxygen Saturation 98% 02/11/2021 10:57 AM CDT Inhaled Oxygen Concentration - - Weight 154.7 kg (341 lb) 01/14/2021 10:37 AM CDT Height 185.4 cm (6' 1 ) 02/11/2021 10:57 AM CDT Body Mass Index 44.99 01/14/2021 10:37 AM CDT Plan of Treatment Health Maintenance Due Date Last Done Comments ZOSTER VACCINE (1 of 2) 1980 FIT-DNA Q 3 years 2006 FIT/FOBT Q 1 year 2006 Flex Sig/CT Colonography Q 5 years 2006 DIABETES HBA1C Q 6 MONTHS 05/28/20212020, 09/29/2020, 06/18/2020, Additional history exists LDL CHOLESTEROL ANNUAL 05/28/2021 , 01/05/2018, 07/20/2017, Additional history exists Traditional Medicare (ACO) A nnual Wellness Visit 05/28/2021 05/27/2020, 09/13/2018 RSV VACCINE (60+ or ) (1 - Risk 60-74 years 1-dose series) 2021 DIABETES MICROALBUMIN ANNUAL SCREEN 09/02/2021 09/02/2020, 01/05/2018, 04/21/2017 DIABETES ANNUAL FOOT EXAM 11/24/20212020, 06/18/2020, 03/13/2020, Additional history exists DTAP/TDAP/TD VACCINES (2 - T d or Tdap) 01/09/2023 01/09/2013 INFLUENZA VACCINE (#1) 2025 , 06/06/2019, 06/06/2019, Additional history exists DIABETES ANNUAL RETINAL EXAM 01/09/2026, 11/19/2021, 09/29/2020, Additional history exists COLORECTAL SCREENING 10/11/2026 10/11/2016 Colorectal Cancer Screening 10/11/2026 Medical Devices Implanted Type Area Researcher Device Identifier Shelf Expiration Date Model / Serial / Lot Port Pwrprt Ti Chrnflx Cath 8fr [id number] - [id number] Implanted:Qty: 1 on 09/11/2014 by Hussain Nova MD at [facility] Port Right: Chest [employer] 05/20/2016 [id number] / / [id number] Micro Compressin Screw Implanted:Qty: 1 on 12/11/2013 at [facility] Screw [employer] AE-8725-16 H / / LOAD #[id number] Micro Compression Screw Implanted:Qty: 1 on 12/11/2013 at [facility] Screw [employer] AR-8725-24 H / / LOAD #[id number] Micro Compression Screw Implanted:Qty: 1 on 12/11/2013 at [facility] Screw [employer] AR-8725-26 H / / LOAD #[id number] Micro Compression Screw Implanted:Qty: 1 on 12/11/2013 at [facility] Screw [employer] AR-8725-28 H / / LOAD #[id number] Screw Quckfx 2.5x24mm Ar-8725-24h - Sload #[id number] Implanted:Qty: 3 on 03/19/2014 at [facility] Screw Left: Finger [employer] AR-8725-24 H / LOAD #[id number] / Headless Screw Implanted:Qty: 1 on 03/19/2014 by Ludy Chavez MD at [facility] Screw Left: Finger [employer] AR-8725-20 H / / LOAD #[id number] Explanted Type Area Researcher Device Identifier Shelf Expiration Date Model / Serial / Lot Port Pwrprt Ti Chrnflx Cath 8fr [id number] - [id number] Implanted:Qty: 1 on 09/05/2013 by Hussain Nova MD at [facility] Explanted:Qty: 1 on 09/11/2014 at [facility] Port Right: Chest Wall [employer] 06/05/2015 [id number] / / [id number] Micro Compression Screw Explanted:Qty: 1 on 12/11/2013 at [facility] Screw [employer] AR-8725-24 H / / LOAD #[id number] Description:stripped screw Guide Wire Explanted:Qty: 4 on 12/11/2013 at [facility] Wire [employer] AR-8737-39 / / LOAD #[id number] Guidewire Explanted:Qty: 2 on 03/19/2014 by Ludy Chavez MD at [facility] Wire Left: Finger [employer] AR-8737-39 / / LOAD #[id number] Procedures Procedure Name Priority Date/Time Associated Diagnosis Comments HEMOGLOBIN A1C Routine 11/26/2020 10:10 AM CDT Type 2 diabetes mellitus with hyperglycemia, with long-term current use of insulin ([facility]) HM DIABETES EYE EXAM Routine 09/18/2020 MICROALBUMIN/CREATI NINE RATIO, RANDOM UR Routine 09/02/2020 10:45 AM SURGICAL NURSE Type 2 diabetes mellitus without complication, unspecified whether superintendent terminal insulin use ([facility]) LIPID PANEL Routine 05/28/2020 9:09 AM CDT Type 2 diabetes mellitus with hyperglycemia, with long-term current use of insulin ([facility]) from Last 3 Months or Most Recently Relevant to Health Maintenance Results * (ABNORMAL) HEMOGLOBIN A1C (11/26/2020 10:10 AM CDT) HEMOGLOBIN A1C 7.4(H) <=5.6 % 11/26/2020 11:32 AM CDT [facility] EST. AVG GLUCOSE, A1C 166 mg/dL 11/26/2020 11:32 AM CDT [facility] Blood Venipuncture / Unknown 11/26/2020 10:10 AM CDT 11/26/2020 10:16 AM CDT Narrative [facility] - 11/26/2020 11:32 AM CDT HGB A1C INTERPRETATION NORMAL: <5.7% PRE-DIABETES: 5.7 - 6.4% DIABETES: 6.5% OR GREATER Falsely low A1C measurements can occur when: 1. Anemia and/or hemolytic anemia is present. 2. Hemoglobin variants present. 3. Renal failure. 4. Transfusion of blood product in the last 120 days. We recommend ordering a fructosamine test([id number]) to more accurately assess glycemic status if any of the above conditions are present. Juan David DELGADO CHEMISTRY ORDERABLES Final R esult [facility] [id number] [id number] [place] [address] * DIABETES EYE EXAM (09/18/2020) us Abstract Spg Provider HEALTH MAINTENANCE Final R esult * MICROALBUMIN/CREATININE RATIO, RANDOM UR (09/02/2020 10:45 AM SURGICAL NURSE) MICROALBUMIN, URINE 1.5 No Reference Range mg/dL 09/02/2020 9:46 PM SURGICAL NURSE [facility] CREATININE, URINE 117.2 40.0 - 278.0 mg/dL 09/02/2020 9:46 PM SURGICAL NURSE [facility] Comment:Reference Range vari es with fluid intake and diet. MICROALBUMIN/C REAT RATIO, UR 12.8 <17.0 mg/g 09/02/2020 9:46 PM SURGICAL NURSE [facility] Urine URINE SPECIMEN OBTAINED BY CLEAN CATCH PROCEDURE / Unknown Collection / Unknown 09/02/2020 10:45 AM SURGICAL NURSE 09/02/2020 8:11 PM SURGICAL NURSE Narrative [facility] - 09/02/2020 9:46 PM SURGICAL NURSE Condition Microalbumin/Creat ratio Normal Males <17 Normal Females <25 Microalbuminuria Males 17-299 Microalbuminuria Females 25-299 Overt proteinuria >=300 Waqas DELGADO URINE ORDERABLES Final Result [facility] CLIA# [id number] [address] [place] [address] * (ABNORMAL) LIPID PANEL (05/28/2020 9:09 AM CDT) CHOLESTEROL 116 <200 mg/dL 05/28/2020 9:45 AM CDT [facility] TRIGLYCERIDE 151(H) <150 mg/dL 05/28/2020 9:45 AM CDT [facility] HDL 59 40 - 59 mg/dL 05/28/2020 9:45 AM CDT [facility] LDL CALCULATED 27 <100 mg/dL 05/28/2020 9:45 AM CDT [facility] NON-HDL CHOLESTEROL 57 <130 mg/dL 05/28/2020 9:45 AM CDT [facility] Blood Venipuncture / Unknown 05/28/2020 9:09 AM CDT 05/28/2020 9:09 AM CDT Narrative [facility] - 05/28/2020 9:45 AM CDT TOTAL CHOLESTEROL mg/dL Desirable <200 Borderline high 200-239 High >=240 TRIGLYCERIDES mg/dL Normal <150 Borderline high 150-199 High 200-499 Very high >=500 HDL CHOLESTEROL mg/dL Low <40 Normal 40-59 Desirable >=60 NON HDL CHOLESTEROL mg/dL Optimal <130 Near Optimal 130-159 Borderline High 160-189 Very High >=190 CALCULATED LDL mg/dL LDL <70, OPTIMAL if have Atherosclerotic cardiovascular disease (ASCVD) or intermediate or higher (>7.5%) 10 year risk of ASCVD including most adults with diabetes. LDL <100, Optimal in adult patients with low (<7.5%) 10 year ASCVD risk LDL 100-160, Suboptimal LDL >160, High LDL >190, Very high ATPIII Guidelines Reference Ranges for Lipid Panels (NCEP/AMA) . Waqas DELGADO CHEMISTRY ORDERABLES Final Re sult [facility]# [id number] [address] [place] [address] from Last 3 Months or Most Recently Relevant to Health Maintenance Additional Health Concerns Infection Onset Date Last Indicated MRSA 03/07/2017 03/07/2017 Insurance [place] B [place] Advance Directives For more information, please contact: [phone] * Full Code (Latest Code Status on File) Date Activated Date Inactivated Comments 03/10/2017 3:35 PM 03/16/2017 5:45 PM * Full Code Date Activated Date Inactivated Comments 03/07/2017 1:59 AM 03/10/2017 3:34 PM * Full Code Date Activated Date Inactivated Comments 10/11/2016 1:25 PM 10/11/2016 4:10 PM * Full Code Date Activated Date Inactivated Comments 10/11/2016 12:30 PM 10/11/2016 1:25 PM * Full Code Date Activated Date Inactivated Comments 09/11/2014 1:01 PM 09/11/2014 4:02 PM Care Teams Freight Manager Relationship Specialty Start Date End Date Ekaterina Santillan MD [address] [phone] PCP - General Family Practice 10/08/20
--- OUTSIDE RECORDS SUMMARY | 2025-04-11 19:47 | XMS_ITS | Encounter Summary ---
Author Organization [facility] Address [address] [place] [address] Care Team Providers Care Restaurant Busser Name Role Phone Ekaterina Santillan MD Primary Care Provider Encounter Details Date Type Department Care Team (Late st Contact Info) Description 03/26/2012 Ancillary Orders [facility] [address] [place] [address] Oscar Dangelo MD [address] [phone] Pain Social History Tobacco Use Types Packs/Day Years Used Date Smoking Tobacco: Never Cigarettes Smokeless Tobacco: Current Snuff Comments:one can every 2 day s Alcohol Use Standard Drinks/Week Comments No 0 (1 standard drink = 0.6 oz pur e alcohol) Sex and Gender Information Value Date Recorded Sex Assigned at Not on file Legal Sex Male 10:57 AM HIM MANAGER Gender Identity Not on file Sexual Orientation Not on file Occupation Industry Job Start Date Job End Date Not on file Not on file Not on file Not on file documented as of this encounter Plan of Treatment Not on file documented as of this encounter Visit Diagnoses Diagnosis Pain Generalized pain documented in this encounter Additional Health Concerns Infection Onset Date Last Indicated Resolved Time MRSA 03/07/2017 03/07/2017 R/O COVID-19 05/29/2020 05/29/2020 05/31/2020 12:4 6 AM CDT COVID-19 05/29/2020 05/29/2020 06/28/2020 8:09 PM HIM MANAGER documented as of this encounter Care Teams Restaurant Busser Relationship Specialty Start Date End Date Ekaterina Santillan MD [address] [phone] PCP - General Family Practice 10/08/20 documented as of this encounter
--- OUTSIDE RECORDS SUMMARY | 2025-04-11 19:47 | XMS_ITS | Encounter Summary ---
Author Organization [facility] Address [address] [place] [address] Care Team Providers Care Cisco Certified Internetwork Expert Name Role Phone Ekaterina Santillan MD Primary Care Provider Reason for Referral * MRI (Routine) - Closed Specialty Diagnoses / Procedures Referred By Timo alvares Referred To Contact Radiology Diagnoses Multiple myeloma, remission status unspecified (CMS/HCC) Left hip pain Procedures MRI HIP WO CONTRAST LEFT MRI HIP W WO CONTRAST LEFT Kassie Robison DO [address] [facility] [address] [place] [address] Phone: tel: fax: [facility] [address] [facility] [address] [place] [address] Phone: tel: fax: Referral ID Status Reason Start Date Expiration Date V isits Requested Visits Authorized [id number] Closed SGF CTS to Schedule 08/20/2020 09/20/2021 1 1 CRIB ATTENDANT Encounter Details Date Type Department Care Team (Late st Contact Info) Description 09/11/2020 Ancillary Orders [facility] Cancer and Hematology- Cancer Center [address] [facility] [address] [place] [address] Kassie Robison DO [address] [facility] [address] [place] [address] Multiple myeloma, remission status unspecified (CMS/HCC); Left hip pain Social History Tobacco Use Types Packs/Day Years [...] 05/27/2020 How often do you attend chur or lutheran services? 1 to 4 times per year 05/27/2020 Do you belong to any clubs o r organizations such as methodist groups, unions, fraternal or athletic groups, or [...] on file Legal Sex Male 10:57 AM TOOL CRIB ATTENDANT Gender Identity Not on file Sexual Orientation [...] have Coronavirus / COVID-19? No / Unsure 09/11/2020 10:35 AM TOOL CRIB ATTENDANT documented as of this encounter Plan of Treatment Not on file documented as of this encounter Results * MRI HIP WO CONTRAST LEFT (09/11/2020 12:29 PM TOOL CRIB ATTENDANT) Anatomical Region Laterality Modality Lower Extremity Magnetic Resonan ce 09/11/2020 12:3 0 PM TOOL CRIB ATTENDANT Impressions 09/11/2020 3:31 PM TOOL CRIB ATTENDANT IMPRESSION: Please see below. Exam: MRI HIP WO CONTRAST LEFT Date/Time of Exam: 09/11/2020 12:29 PM Reason For Exam: See diagnosis. Diagnosis: Multiple myeloma, remission status unspecified; Left hip pain. Technique: MRI of the left hip was performed without the administration of intravenous contrast. Comparison: None. Findings: The exam is degraded by motion artifact. There is an infiltrative lesion-like marrow signal abnormality within the right sacral ala at the S2 level which demonstrates decreased T1 and increased T2 signal intensity measuring 2.9 x 3.3 cm likely reflecting a myelomatous lesion given clinical history. No other definite infiltrative marrow signal abnormalities are identified. There is no evidence of an acute fracture or avascular necrosis. The hip joints are anatomically aligned. There are moderate hip joint degenerative changes. There is a physiologic amount of joint fluid. There is no significant paralabral cyst formation. The pubic symphysis and sacroiliac joints are anatomically aligned. The sacroiliac joints appear well-maintained. There are moderate to advanced degenerative changes involving the partially visualized lumbar spine. There is nonspecific asymmetric edema involving the right quadratus femoris muscle near the femoral insertion which may reflect recent strain. There is a moderate degree of relatively diffuse muscle atrophy. The pelvic and proximal femoral tendon origins and attachments appear intact. There is no significant bursal distention. There are enlarged bilateral inguinal lymph nodes measuring up to 1.8 cm in short axis dimension. There is no significant intrapelvic pathology. IMPRESSION: 1. Lesion-like marrow signal abnormality within the right hemisacrum likely reflecting multiple myeloma given clinical history. 2. Moderate degenerative changes involving the hips. 3. Moderate to advanced degenerative changes involving the partially visualized lumbar spine. 4. Nonspecific right quadratus femoris muscle edema which may reflect recent strain. 5. Nonspecific inguinal lymphadenopathy. [id number] Narrative Procedure Note Victor Manuel Presley, DO - 09/11/2020 IMPRESSION: Please see below. Exam: MRI HIP WO CONTRAST LEFT Date/Time of Exam: 09/11/2020 12:29 PM Reason For Exam: See diagnosis. Diagnosis: Multiple myeloma, remission status unspecified; Left hip pain. Technique: MRI of the left hip was performed without the administration of intravenous contrast. Comparison: None. Findings: The exam is degraded by motion artifact. There is an infiltrative lesion-like marrow signal abnormality within the right sacral ala at the S2 level which demonstrates decreased T1 and increased T2 signal intensity measuring 2.9 x 3.3 cm likely reflecting a myelomatous lesion given clinical history. No other definite infiltrative marrow signal abnormalities are identified. There is no evidence of an acute fracture or avascular necrosis. The hip joints are anatomically aligned. There are moderate hip joint degenerative changes. There is a physiologic amount of joint fluid. There is no significant paralabral cyst formation. The pubic symphysis and sacroiliac joints are anatomically aligned. The sacroiliac joints appear well-maintained. There are moderate to advanced degenerative changes involving the partially visualized lumbar spine. There is nonspecific asymmetric edema involving the right quadratus femoris muscle near the femoral insertion which may reflect recent strain. There is a moderate degree of relatively diffuse muscle atrophy. The pelvic and proximal femoral tendon origins and attachments appear intact. There is no significant bursal distention. There are enlarged bilateral inguinal lymph nodes measuring up to 1.8 cm in short axis dimension. There is no significant intrapelvic pathology. IMPRESSION: 1. Lesion-like marrow signal abnormality within the right hemisacrum likely reflecting multiple myeloma given clinical history. 2. Moderate degenerative changes involving the hips. 3. Moderate to advanced degenerative changes involving the partially visualized lumbar spine. 4. Nonspecific right quadratus femoris muscle edema which may reflect recent strain. 5. Nonspecific inguinal lymphadenopathy. [id number] Kassie Robison DO MR ORDERABLES Final R esult documented in this encounter Visit Diagnoses Diagnosis Multiple myeloma, remission status unspecified (CMS/HCC) Left hip pain Pain in joint, pelvic region and thigh Multiple myeloma, remission status unspecified (CMS/HCC) Left hip pain Pain in joint, pelvic region and thigh documented in this encounter Additional Health Concerns Infection Onset Date Last Indicated Resolved Time MRSA 03/07/2017 03/07/2017 Assessment Noted Time PHQ-9 Depression Total Score: 3 05/27/20 20 9:58 AM CDT documented as of this encounter Care Teams Cisco Certified Internetwork Expert Relationship Specialty Start Date End Date Ekaterina Santillan MD [address] [phone] PCP - General Family Practice 10/08/20 documented as of this encounter
--- OUTSIDE RECORDS SUMMARY | 2025-04-11 19:47 | XMS_ITS | Encounter Summary ---
Author Organization [facility] Address [address] [place] [address] Care Team Providers Care Sales Porter Name Role Phone Ekaterina Santillan MD Primary Care Provider [phone] Encounter Details Date Type Department Care Team (Late st Contact Info) Description 09/04/2014 Ancillary Orders [facility] Cancer and Hematology- Cancer Center [address] [address] Jermaine Carolina MD [address] [place] [address] Encounter for care related to vascular access port (Primary Dx) Social History Tobacco Use Types Packs/Day Years Used Date Smoking Tobacco: Never Cigarettes Smokeless Tobacco: Current Chew Comments:one can every 2 day s Alcohol Use Standard Drinks/Week Comments No 0 (1 standard drink = 0.6 oz pur e alcohol) Sex and Gender Information Value Date Recorded Sex Assigned at Not on file Legal Sex Male 10:57 AM ARTIFICIAL INTELLIGENCE SPECIALIST Gender Identity Not on file Sexual Orientation Not on file Occupation Industry Job Start Date Job End Date Not on file Not on file Not on file Not on file Not on file Not on file Not on file Not on file documented as of this encounter Plan of Treatment Not on file documented as of this encounter Results * XR CHEST PA OR AP (09/04/2014 7:57 AM ARTIFICIAL INTELLIGENCE SPECIALIST) Anatomical Region Laterality Modality Chest Computed Radiogr aphy 09/04/2014 7:30 AM ARTIFICIAL INTELLIGENCE SPECIALIST Impressions 09/04/2014 3:37 PM ARTIFICIAL INTELLIGENCE SPECIALIST Impression: 1. Malpositioned right IJ chest port as described. 2. Recommend consultation with Interventional Radiology for revision or replacement. Narrative 09/04/2014 3:37 PM ARTIFICIAL INTELLIGENCE SPECIALIST IMPRESSION - see report below. Exam: XR CHEST PA OR AP Date/Time of Exam: Sep 04, 2014 07:57:53 AM Reason For Exam: Fitting and adjustment of vascular catheter. Comparisons: Chest PA and lateral dated 06/13/2014. Findings: The examination was personally supervised and diagnosed by Dr. Land prior to the time of dictation. A single spot image was obtained as a gear shaper image for port injection. The right IJ chest port catheter continues to be directed laterally in the right subclavian vein. Catheter tip position unchanged compared to previous chest x-ray. The port injection was not performed due to need for port revision. Procedure Note Edgar Land MD - 09/04/2014 IMPRESSION - see report below. Exam: XR CHEST PA OR AP Date/Time of Exam: Sep 04, 2014 07:57:53 AM Reason For Exam: Fitting and adjustment of vascular catheter. Comparisons: Chest PA and lateral dated 06/13/2014. Findings: The examination was personally supervised and diagnosed by Dr. Land prior to the time of dictation. A single spot image was obtained as a gear shaper image for port injection. The right IJ chest port catheter continues to be directed laterally in the right subclavian vein. Catheter tip position unchanged compared to previous chest x-ray. The port injection was not performed due to need for port revision. IMPRESSION Impression: 1. Malpositioned right IJ chest port as described. 2. Recommend consultation with Interventional Radiology for revision or replacement. Jermaine Carolina MD DIAGNOSTIC IMAGING ORDERAB LES Final Result documented in this encounter Visit Diagnoses Diagnosis Encounter for care related to vascular access port Fitting and adjustment of vascular catheter Encounter for care related to vascular access port- Primary Fitting and adjustment of vascular catheter documented in this encounter Additional Health Concerns Infection Onset Date Last Indicated Resolved Time MRSA 03/07/2017 03/07/2017 R/O COVID-19 05/29/2020 05/29/2020 05/31/2020 12:4 6 AM CDT COVID-19 05/29/2020 05/29/2020 06/28/2020 8:09 PM ARTIFICIAL INTELLIGENCE SPECIALIST documented as of this encounter Care Teams Sales Porter Relationship Specialty Start Date End Date Ekaterina Santillan MD [address] [phone] PCP - General Family Practice 10/08/20 documented as of this encounter
--- OUTSIDE RECORDS SUMMARY | 2025-04-11 19:47 | XMS_ITS | Encounter Summary ---
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) Social History Tobacco Use Types Packs/Day Years Used Date Smoking Tobacco: Never Cigarettes Smokeless Tobacco: Current Chew Comments:one can every 2 day s Alcohol Use Standard Drinks/Week Comments No 0 (1 standard drink = 0.6 oz pur e alcohol) Sex and Gender Information Value Date Recorded Sex Assigned at Not on file Legal Sex Male 10:57 AM EMPLOYMENT SPECIALIST Gender Identity Not on file Sexual Orientation Not on file Occupation Industry Job Start Date Job End Date Not on file Not on file Not on file Not on file Not on file Not on file Not on file Not on file documented as of this encounter Plan of Treatment Not on file documented as of this encounter Results * XR HAND 2 VW RIGHT (01/23/2014 9:17 AM CDT) Anatomical Region Laterality Modality Wrist / Hand Computed Radiogr aphy Narrative 01/28/2014 7:24 AM CDT AP and lateral of the right hand shows a PIP fusion and Zancolli procedure of the index through small fingers in excellent position. Procedure Note Ludy Chavez MD - 01/28/2014 AP and lateral of the right hand shows a PIP fusion and Zancolli procedureof the index through small fingers in excellent position. us Ludy Chavez MD DIAGNOSTIC IMAGING ORDERABLE S Final Result documented in this encounter Visit Diagnoses Diagnosis Contracture of joint of right hand- Primary Contracture of hand joint documented in this encounter Additional Health Concerns Infection Onset Date Last Indicated Resolved Time MRSA 03/07/2017 03/07/2017 R/O COVID-19 05/29/2020 05/29/2020 05/31/2020 12:4 6 AM CDT COVID-19 05/29/2020 05/29/2020 06/28/2020 8:09 PM EMPLOYMENT SPECIALIST documented as of this encounter Care Teams Director Retirement Relationship Specialty Start Date End Date Ekaterina Santillan MD [address] [phone] PCP - General Family Practice 10/08/20 documented as of this encounter
--- OUTSIDE RECORDS SUMMARY | 2025-04-11 19:47 | XMS_ITS | Encounter Summary ---
Author Organization [facility] Address [address] [place] [address] Care Team Providers Care Authorization Nurse Name Role Phone Ekaterina Santillan MD Primary Care Provider [phone] Encounter Details Date Type Department Care Team (Late st Contact Info) Description 01/12/2012 Ancillary Orders [facility] Orthopedics- [address] [place] [address] Ludy Chavez MD [address] [place] [address] Pain Social History Tobacco Use Types Packs/Day Years Used Date Smoking Tobacco: Never Cigarettes Smokeless Tobacco: Current Snuff Comments:one can every 2 day s Alcohol Use Standard Drinks/Week Comments No 0 (1 standard drink = 0.6 oz pur e alcohol) Sex and Gender Information Value Date Recorded Sex Assigned at Not on file Legal Sex Male 10:57 AM ELECTROLYTIC ETCHER Gender Identity Not on file Sexual Orientation Not on file Occupation Industry Job Start Date Job End Date Not on file Not on file Not on file Not on file documented as of this encounter Plan of Treatment Not on file documented as of this encounter Results * XR HAND 2 VW LEFT (01/12/2012 8:41 AM CDT) Anatomical Region Laterality Modality Wrist / Hand Computed Radiogr aphy Narrative 01/23/2012 10:10 AM CDT AP and lateral of the bilateral hands show intrinsic minus position with no evidence of significant fracture, dislocation or other gross pathology of the right or left hand. Procedure Note Ludy Chavez MD - 01/23/2012 AP and lateral of the bilateral hands show intrinsic minus position withno evidence of significant fracture, dislocation or other gross pathologyof the right or left hand. us Ludy Chavez MD DIAGNOSTIC IMAGING ORDERABLE S Final Result documented in this encounter Visit Diagnoses Diagnosis Pain Generalized pain documented in this encounter Additional Health Concerns Infection Onset Date Last Indicated Resolved Time MRSA 03/07/2017 03/07/2017 R/O COVID-19 05/29/2020 05/29/2020 05/31/2020 12:4 6 AM CDT COVID-19 05/29/2020 05/29/2020 06/28/2020 8:09 PM ELECTROLYTIC ETCHER documented as of this encounter Care Teams Authorization Nurse Relationship Specialty Start Date End Date Ekaterina Santillan MD [address] [phone] PCP - General Family Practice 10/08/20 documented as of this encounter
--- OUTSIDE RECORDS SUMMARY | 2025-04-11 19:47 | XMS_ITS | Encounter Summary ---
Author Organization [facility] Address [address] [place] [address] Care Team Providers Care Materials Handling Coordinator Name Role Phone Unavailable Primary Care Provider Unavailabl e Encounter Details Date Type Department Care Team (Late st Contact Info) Description 01/11/2011 Orders Only [facility] Radiology [address] [facility] [place] [address] System, Provider Not In, [address] [facility] [place] [address] Social History Tobacco Use Types Packs/Day Years [...] Priority Date/Time Associated Diagnosis Comments OUTSIDE IMAGES 01/11/2011 2:08 PM CDT documented in this encounter Results * Outside Images (01/11/2011 2:08 PM CDT) Anatomical Region Laterality Modality N/A Radiographic Ya ging 01/11/2011 2:08 PM CDT Narrative 01/11/2011 2:08 PM CDT Historic images from [facility] exist and can be viewed by using the hyperlink to access [employer] pacs: X-Ray, Chest, PA & Lateral Procedure Note System, Provider Not In - 08/08/2018 Historic images from [facility] exist and can be viewed by using thehyperlink to access [employer] pacs: X-Ray, Chest, PA & Lateral us Provider Not In System MD [facility] OR DER[facility] Final Result documented in this encounter Visit Diagnoses Not on filedocumented in this encounter
--- OUTSIDE RECORDS SUMMARY | 2025-04-11 19:47 | XMS_ITS ---
Author Organization [facility] Address [address] [place] [address] Care Team Providers Care Neon Technician Name Role Phone Ekaterina Santillan MD Primary Care Provider [phone] Active Problems * This document contains information received from the source organization and may not represent a complete record from that organization. Patient Care Coordination No te Formatting of this note migh t be different from the original. Protocol: [id number], NCT# [id number], Study Treatment is Lenalidomide + Dexamethasone in a Clinical Trial for Multiple Myeloma. Dr.Rajesh Styles is the Elevated Motorman. Dr. Kassie Robison is the patient's physician. Both can be reached at [phone] or research coordinator: Jayla Daugherty RN at [phone] if questions. Problem Noted Date Diagnosed Date [...] edema 12/23/2009 Bilateral sensory deficit present 12/23/2009 Guillain-[place] Seizure disorder Overview (12/10/2013): last seizure 2010 Current Treatment and Therapy Plans OP ONC MYELOMA_BORTEZOMIB WEEKLY (1 wks on, 1 wk off), LENALIDOMIDE(day 1-21)_DEXAMETHASONE(weekly)CONVERTED* Plan Start Date:11/27/2019 Plan Provider:Kassie Robison DO Linked Problems Multiple myeloma, remission status unspecified (CMS/HCC) Treatment Medications Current Day (Day 1 5, Cycle 16 - Planned for 02/25/2021) Next Day (Day 1, Cycle 17 - Planned for 03/11/2021) bortezomib (VELCADE) subcuta neous syringelenalidomide (REVLIMID) bortezomib (VELCADE) 3.675 mg in sodium chloride PF 0.9 % 1.47 mL SUBCUTANEOUS syringe bortezomib (VELCADE) 3.675 mg in sodium chloride PF 0.9 % 1.47 mL SUBCUTANEOUS syringe Past Treatment and Therapy Plans ONCOLOGY THERAPY PLAN Plan Name Start Date Discontinue Date Treatment Medications Discontinue Reason Plan Provider OP ONC ZOLEDRONIC ACID (ZOMETA) FOR BONE METASTASIS OR MULTIPLE MYELOMA 06/14/2013 11/19/2020 No medications scheduled. Other Cody Conrad MD Lifetime Dose Tracking * Chemical Lifetime Dose Automatic Entry Manual Entr y Effective Dose 34.5 mSv 34.5 mSv 0 mSv Total DLP 2,807 DLP 2,807 DLP 0 DLP CTDIvol Max 143.5 mGy 143.5 mGy 0 mGy CTDIvol Min 118.2 mGy 118.2 mGy 0 mGy Resolved Problems Problem Noted Date Diagnosed Date Resolved Date Skin ulcer of left lower leg 04/11/2019 09/04/2019 Cellulitis of lower leg 04/16/201304/21 Chronic inflammatory demyeli nating polyneuropathy 12/21/2009 12/16/2010
--- OUTSIDE RECORDS SUMMARY | 2025-04-11 19:47 | XMS_ITS | Encounter Summary ---
Author Organization [facility] Address [address] [address] Care Team Providers Care Pretzel Twister Name Role Phone Unavailable Primary Care Provider Unavailabl e Encounter Details Date Type Department Care Team (Late st Contact Info) Description 03/01/2011 Orders Only [facility] Radiology [address] [facility] [place] [address] System, Provider Not In, [address] [facility] [place] [address] Social History Tobacco Use Types Packs/Day Years [...] Priority Date/Time Associated Diagnosis Comments OUTSIDE IMAGES 03/01/2011 3:07 PM CDT documented in this encounter Results * Outside Images (03/01/2011 3:07 PM CDT) Anatomical Region Laterality Modality N/A Radiographic Ya ging 03/01/2011 3:07 PM CDT Narrative 03/01/2011 3:07 PM CDT Historic images from [facility] exist and can be viewed by using the hyperlink to access [employer] pacs: X-Ray, Wrist Procedure Note System, Provider Not In - 08/08/2018 Historic images from [facility] exist and can be viewed by using thehyperlink to access [employer] pacs: X-Ray, Wrist us Provider Not In System MD [facility] Final Result documented in this encounter Visit Diagnoses Not on filedocumented in this encounter
[2025-04-11 20:24] LABS: Hematocrit 37.5 % (37-53); Hemoglobin 11.90 g/dL (11.27-16.99); Mean Corpuscular HGB Conc 31.7 g/dL (30-55); Mean Corpuscular Hemoglobin 27.9 pg (27-33); Mean Corpuscular Volume 88.0 fl (82-101); Nucleated Red Blood Cells % 0 %; Platelet Count 172 10^3/cmm (157-399); Red Blood Count 4.26 10^6/uL (3.85-5.65); White Blood Count 6.99 10^3/uL (3.29-11.43)
--- NOTE | 2025-04-11 20:26 | ECG_ITS ---
[facility] Test Date: 2025-04-11 Pat Name: Avel Hurley Department: Room: Gender: Male Fly Rail Operator: : 1960 Requested By: Rohan Corona Order Number: [id number] Isbell MD: Colby Brandon M.D. Measurements Intervals [place] Rate: 81 P: 19 [place]: 157 QRS: 33 QRSD: 102 T: 58 QT: 407 QTc: 474 Interpretive Statements SINUS RHYTHM Compared to ECG 04/11/2025 19:51:00 No significant changes Electronically Signed On 04-12-2025 08:42:25 CDT by Colby Brandon M.D. [email or web address]
--- NOTE | 2025-04-11 20:26 | W.ED.CHESTPA ---
HPI - Chest Pain General: Chief Complaint: Chest Pain Stated Complaint: CHEST PAIN Time Seen by Provider: 04/11/25 20:01 History of Present Illness: Patient is a 64 yo male who presents to the emergency department with acute onset chest pain. The patient reports he was at home watching television when he experienced sudden severe chest pain with radiation down his left arm. He describes shooting pains down the left arm with associated lightheadedness. He called his daughter for help, who presumably called EMS. Upon EMS arrival, the patient was administered 4 baby aspirin and sublingual nitroglycerin, which provided some relief. He was also given fentanyl for pain control, which completely resolved his chest discomfort. The patient admits to becoming a little sweaty during the episode but denies shortness of breath, nausea, or vomiting. He reports eating breakfast earlier in the day but nothing since then. The patient currently denies ongoing chest pain but reports chronic lower back pain radiating to his leg. Related Data Home Medications ?Medication ?Instructions ?Recorded ?Confirmed acyclovir 400 mg tablet 400 mg PO BID 02/08/24 04/18/24 albuterol sulfate 90 mcg/actuation 2 puff inhalation Q4H PRN 02/08/24 04/18/24 aerosol inhaler (Ventolin HFA) Shortness Of Breath amitriptyline 100 mg tablet 100 mg PO BEDTIME 02/08/24 04/18/24 buspirone 30 mg tablet 30 mg PO TID 02/08/24 04/18/24 cyclobenzaprine 10 mg tablet 10 mg PO TID PRN MUSCLE SPASMS 02/08/24 04/18/24 dexamethasone 4 mg tablet See Rx Instructions .Route .COMPLEX 02/08/24 04/18/24 diazepam 5 mg tablet 5 mg PO DAILY 02/08/24 04/18/24 duloxetine 60 mg capsule,delayed 60 mg PO BID 02/08/24 04/18/24 release furosemide 40 mg tablet 40 mg PO DAILY 02/08/24 04/18/24 gabapentin 300 mg capsule 600 mg PO QID 02/08/24 04/18/24 hydroxyzine HCl 50 mg tablet 100 mg PO BEDTIME 02/08/24 04/18/24 insulin regular hum U-500 conc 500 120 unit SUBCUT TID 02/08/24 04/18/24 unit/mL(3 mL) subcut pen (Humulin R U-500 (Conc) Insulin Kwikpen) lenalidomide 25 mg capsule 25 mg PO DIRECTED 02/08/24 04/18/24 meloxicam 15 mg tablet 15 mg PO DAILY PRN PAIN AND 02/08/24 04/18/24 INFLAMMATION metformin 1,000 mg tablet 1,000 mg PO BID 02/08/24 04/18/24 metoprolol tartrate 50 mg tablet See Rx Instructions .Route .COMPLEX 02/08/24 04/18/24 omeprazole 40 mg capsule,delayed 40 mg PO QAM 02/08/24 04/18/24 release ondansetron HCl 4 mg tablet 4 mg PO Q6H PRN Nausea 02/08/24 04/18/24 oxycodone-acetaminophen 10 mg-325 See Rx Instructions .Route .COMPLEX 02/08/24 04/18/24 mg tablet pentoxifylline 400 mg 400 mg PO TID 02/08/24 04/18/24 tablet,extended release potassium chloride 20 mEq 40 meq PO BID 02/08/24 04/18/24 tablet,extended release(part/cryst) pravastatin 40 mg tablet 40 mg PO DAILY 02/08/24 04/18/24 spironolactone 50 mg tablet See Rx Instructions .Route .COMPLEX 02/08/24 04/18/24 topiramate 100 mg tablet 100 mg PO DAILY 02/08/24 04/18/24 trazodone 150 mg tablet 150 mg PO BEDTIME 02/08/24 04/18/24 verapamil 120 mg tablet,extended 120 mg PO DAILY 02/08/24 04/18/24 release Previous Rx's ?Medication ?Instructions ?Recorded insulin glargine 100 unit/mL (3 10 unit (0.1 mL) SUBCUT QPM #15 mL 02/12/24 mL) subcutaneous pen (Lantus Solostar U-100 Insulin) Right AFO #1 ea 02/29/24 collagenase clostridium histo. 250 1 applic topical DAILY #30 grams 04/23/24 unit/gram topical ointment (Santyl) Allergies Allergy/AdvReac Type Severity Reaction Status Date / Time immune globulin,gamma (IgG) Allergy Unknown Verified 04/18/24 08:40 human Influenza Virus Vaccines Allergy Unknown Verified 04/18/24 08:40 whey Allergy unknown Verified 04/18/24 08:40 Review of Systems Narrative: Cardiovascular: Positive for chest pain with radiation to left arm, diaphoresis. Negative for shortness of breath. Gastrointestinal: Negative for nausea, vomiting, or abdominal pain. Musculoskeletal: Positive for chronic lower back pain radiating to leg. Neurological: Positive for lightheadedness during episode. Respiratory: Negative for dyspnea or cough. [facility] ED PFSH: Medical History [place] Anxiety Heart failure Hypertension Type 2 diabetes mellitus Surgical History History of left below knee amputation Social History Smoking and tobacco/nicotine status: unknown if used tobacco/nicotine Additional social history: He denies alcohol, tobacco or illicit drug use Physical Exam Narrative: EXAM NARRATIVE: Left LE BKA Right LE toe amputation, wrapped and bandaged Const: COMMON NORMALS: no acute distress GENERAL APPEARANCE: cooperative; not ill appearing and not frail appearing HENMT: COMMON NORMALS: normocephalic, atraumatic and Normal external nose present HEAD & SCALP: normocephalic and atraumatic FACE & SINUS: normal facial exam and face symmetric NOSE: Normal external nose present Eye: COMMON NORMALS: Equal, round and reactive pupils present and EOMs intact bilaterally PUPIL: Yes Equal, round and reactive pupils present Neck/C-Spine: GENERAL: Yes trachea midline Chest: CHEST: Yes Symmetrical chest wall rise Resp: COMMON NORMALS: normal respiratory effort, No retractions, No use of accessory muscles and clear to auscultation bilaterally AUSCULTATION: clear to auscultation bilaterally Cardio: COMMON NORMALS: regular rate and regular rhythm RATE: regular rate RHYTHM: regular rhythm GI: COMMON NORMALS: Normal to inspection, nondistended, normoactive bowel sounds present Neuro: DIANE COMA SCALE: document GCS findings Diane coma scale eye opening: Spontaneous Diane coma scale verbal response: Orientated Diane coma scale motor response: [place] commands [place] coma scale total score: 15 SENSORY EXAM: Yes extremities (intact) Psych: COMMON NORMALS: speech normal SPEECH: Yes normal speech Skin: NARRATIVE SKIN EXAM: Stasis dermatitis to LE with wrapped left foot due to chronic wound. Course Vital Signs: Vital signs: Vital Signs Temperature 98.6 F 04/11/25 19:45 Pulse Rate 73 04/12/25 01:23 Respiratory Rate 15 04/12/25 01:23 Blood Pressure 112/65 04/12/25 01:23 Pulse Oximetry 96 04/12/25 01:23 Oxygen Delivery Me thod Room Air 04/11/25 23:24 MDM - Chest Pain Medical Decision Making This patient's vitals been stable. EKGs remain normal. Troponin was stable at 2 hours. CBC is normal. Blood sugar is 300, otherwise BMP not remarkable. Chest x-ray is negative for acute change. Minimal left basilar atelectasis. BNP is only 500. His pain is resolved. He was prescribed morphine for chronic back pain. This is improved as well. He will be discharged home. Outpatient follow-up. Lab Data 04/11/25 20:18 04/11/25 20:18 Radiology Impressions Chest X-Ray 04/11/25 19:42 IMPRESSION: Minimal left basilar atelectasis. Laboratory Results WBC 6.99 10^3/uL (3.29-11.43) 04/11/25 20:18 RBC 4.26 10^6/uL (3.85-5.65) 04/11/25 20:18 Hgb 11.90 g/dL (11.27-16.99) 04/11/25 20:18 Hct 37.5 % (37-53) 04/11/25 20:18 MCV 88.0 fl (82-101) 04/11/25 20:18 MCH 27.9 pg (27-33) 04/11/25 20:18 MCHC 31.7 g/dL (30-55) 04/11/25 20:18 RDW 16.0 % (12.1-15.1) H 04/11/25 20:18 Plt Count 172 10^3/cmm (157-399) 04/11/25 20:18 MPV 10.4 fL (7.4-10.4) 04/11/25 20:18 Neut % (Auto) 75.8 % 04/11/25 20:18 Lymph % (Auto) 17.9 % 04/11/25 20:18 Hendry % (Auto) 5.2 % 04/11/25 20:18 Eos % (Auto) 0.0 % 04/11/25 20:18 Baso % (Auto) 0.1 % 04/11/25 20:18 Neut # (Auto) 5.30 10^3/uL (1.8-7.7) 04/11/25 20:18 Lymph # (Auto) 1.3 10^3/uL (0.8-4.8) 04/11/25 20:18 [place]ry # (Auto) 0.4 10^3/uL (0.2-0.9) 04/11/25 20:18 Eos # (Auto) 0.0 10^3/uL (0.0-0.8) 04/11/25 20:18 Baso # (Auto) 0.0 10^3/uL (0.0-0.1) 04/11/25 20:18 Nucleated RBC % (auto) 0 % 04/11/25 20:18 Nucleated RBCs # 0.0 /100WBC 04/11/25 20:18 Sodium 138 mmol/L (136-145) 04/11/25 20:18 Potassium 4.5 mmol/L (3.5-5.1) 04/11/25 20:18 Chloride 104 mmol/L (98-107) 04/11/25 20:18 Carbon Dioxide 21 mmol/L (22-29) L 04/11/25 20:18 Anion Gap 17.5 (5-19) 04/11/25 20:18 BUN 12 mg/dL (8-23) 04/11/25 20:18 Creatinine 0.6 mg/dL (0.7-1.2) L 04/11/25 20:18 GFR Calculation 136.1 mL/min (90-130) H 04/11/25 20:18 Glucose 300 mg/dL (65-115) H 04/11/25 20:18 POC Glucose 310 mg/dL (70-110) H 04/11/25 19:47 Calculated Osmolality 297 mOsm/kg (285-295) H 04/11/25 20:18 Calcium 8.5 mg/dL (8.5-10.5) 04/11/25 20:18 Magnesium 1.7 mg/dL (1.7-2.3) 04/11/25 20:18 Total Bilirubin 0.4 mg/dL (0.15-1.2) 04/11/25 20:18 AST 7 U/L (0-40) 04/11/25 20:18 ALT 10 U/L (0-41) 04/11/25 20:18 Alkaline Phosphatase 57 U/L (40-130) 04/11/25 20:18 Troponin T Baseline 18 ng/L (0-15) H 04/11/25 20:18 Troponin T 120 Minute 17.89 ng/L (0-15) H 04/11/25 21:58 Delta Troponin T -0.11 ABS# (0-10) L 04/11/25 21:58 NT-Pro-B Natriuret Pep 509 pg/mL (0-125) H 04/11/25 20:18 Total Protein 5.1 g/dL (6.6-8.7) L 04/11/25 20:18 Albumin 3.6 g/dL (3.5-5.2) 04/11/25 20:18 Globulin 1.5 g/dL (1.3-4.6) 04/11/25 20:18 All radiology interpretation(s) finalized by discharge Discharge Plan Discharge Patient Disposition: Home Clinical Impression: Chest pain Condition: Stable Prescriptions: No Action (DME) Right AFO See Rx Instructions .Route .MEDSUPPLY Qty: 1 0RF Rx Instructions: As directed to the bravo [place] 250 unit/gram ointment 1 applic topical DAILY Qty: 30 0RF verapamil 120 mg tablet extended release 120 mg PO DAILY cyclobenzaprine 10 mg tablet 10 mg PO TID PRN (Reason: MUSCLE SPASMS) furosemide 40 mg tablet 40 mg PO DAILY pravastatin 40 mg tablet 40 mg PO DAILY meloxicam 15 mg tablet 15 mg PO DAILY PRN (Reason: PAIN AND INFLAMMATION) ondansetron HCl 4 mg tablet 4 mg PO Q6H PRN (Reason: Nausea) hydroxyzine HCl 50 mg tablet 100 mg PO BEDTIME acyclovir 400 mg tablet 400 mg PO BID omeprazole 40 mg capsule,delayed release(DR/EC) 40 mg PO QAM pentoxifylline 400 mg tablet extended release 400 mg PO TID potassium chloride 20 mEq tablet,ER particles/crystals 40 meq PO BID oxycodone-acetaminophen 10-325 mg tablet See Rx Instructions .ROUTE .COMPLEX Rx Instructions: TAKE 1 OR 2 TABLEST BY MOUTH EVERY 4 TO 6 HOURS NEEDED FOR PAIN. MAX DAILY AMOUNT OF 6 TABLETS. trazodone 150 mg tablet 150 mg PO BEDTIME buspirone 30 mg tablet 30 mg PO TID metformin 1,000 mg tablet 1,000 mg PO BID dexamethasone 4 mg tablet See Rx Instructions .ROUTE .COMPLEX Rx Instructions: TAKE 5 TABLETS BY MOUTH 2 TO 3 HOURS PRIOR TO DARZALEX. metoprolol tartrate 50 mg tablet See Rx Instructions .ROUTE .COMPLEX Rx Instructions: TAKE 100MG BY MOUTH IN THE MORNING AND 1 TABLET IN THE EVENING. gabapentin 300 mg capsule 600 mg PO QID Ventolin HFA 90 mcg/actuation HFA aerosol inhaler 2 puff INHALATION Q4H PRN (Reason: Shortness Of Breath) topiramate 100 mg tablet 100 mg PO DAILY amitriptyline 100 mg tablet 100 mg PO BEDTIME spironolactone 50 mg tablet See Rx Instructions .ROUTE .COMPLEX Rx Instructions: TAKE 1 TABLET BY MOUTH 3 TIMES WEEKLY. diazepam 5 mg tablet 5 mg PO DAILY duloxetine 60 mg capsule,delayed release(DR/EC) 60 mg PO BID lenalidomide 25 mg capsule 25 mg PO DIRECTED Humulin R U-500 (Conc) Kwikpen 500 unit/mL (3 mL) insulin pen 120 unit SUBCUT TID Lantus Solostar U-100 Insulin 100 unit/mL (3 mL) insulin pen 10 unit SUBCUT QPM Qty: 15 0RF Discharge Orders: Discharge ED (Routine); Ordered 04/12/25 Ordered By: Rohan Heath Referrals: Larissa Munoz [Primary Care Provider, Family Practice] - 1-3 days Patient Instructions: Chest Pain (ED), Opioid Safety, Pain Management, Patient Portal & Thanh Instructions Activity Restrictions/Additional Instructions: Return for repeated episodes of chest pain, worsening pain, shortness of breath, significant swelling, any other concerning symptoms. Call your doctor Monday. More outpatient testing may be needed. 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
[2025-04-11 20:43] LABS: Troponin(5th) Baseline 18 ng/L (0-15)
[2025-04-11 21:01] VITALS: BP 128/61; PULSE 82; RESP 17; O2SAT 97
[2025-04-11 21:10] LABS: Alanine Aminotransferase 10 U/L (0-41); Albumin Level 3.6 g/dL (3.5-5.2); Alkaline Phosphatase 57 U/L (40-130); Anion Gap 17.5 (5-19); Aspartate Amino Transferase 7 U/L (0-40); Blood Urea Nitrogen 12 mg/dL (8-23); Calcium 8.5 mg/dL (8.5-10.5); Carbon Dioxide 21 mmol/L (22-29); Chloride 104 mmol/L (98-107); Globulin 1.5 g/dL (1.3-4.6); Glucose 300 mg/dL (65-115); Magnesium 1.7 mg/dL (1.7-2.3); NT Pro B Type Natriuretic Pept 509 pg/mL (0-125); Osmolality Calculated 297 mOsm/kg (285-295); Potassium 4.5 mmol/L (3.5-5.1); Sodium 138 mmol/L (136-145); Total Protein 5.1 g/dL (6.6-8.7)
[2025-04-11 21:18] LABS: Creatinine Clr Calc Pharmacy 168.0418
[2025-04-11] MEDS: insulin regular-human 100 units/1 mL 8 UNIT IVP (21:29)
[2025-04-11 21:31] VITALS: BP 134/80; PULSE 80; RESP 29; O2SAT 97
--- NOTE | 2025-04-11 21:42 | ECG_ITS ---
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 Measurements Intervals [place] Rate: 76 P: 6 IN: 164 QRS: 29 QRSD: 107 T: 51 QT: 417 QTc: 469 Interpretive Statements SINUS RHYTHM Compared to ECG 04/11/2025 20:26:03 No significant changes Electronically Signed On 04-12-2025 09:38:26 CDT by Colby Brandon M.D. [email or web address]
[2025-04-11 22:14] VITALS: RESP 16
[2025-04-11] MEDS: ondansetron 2 mg/ML SDV 2 mL 4 MG IVP (22:14)
[2025-04-11] MEDS: morphine 4 mg/mL SDV 1 mL IVP (22:14)
[2025-04-11 23:17] LABS: Troponin 5 2HR 17.89 ng/L (0-15)
[2025-04-11 23:24] VITALS: BP 113/73; PULSE 79; RESP 20; O2SAT 93
[2025-04-11 23:29] LABS: Troponin 5 2HR Delta -0.11 ABS# (0-10)
[2025-04-11 23:36] VITALS: BP 124/92; PULSE 76; RESP 12; O2SAT 96
[2025-04-12 00:41] VITALS: PULSE 89; RESP 19; O2SAT 95
[2025-04-12 01:23] VITALS: BP 112/65; PULSE 73; RESP 15; O2SAT 96
== END 2025-04-12 02:42 | disposition home or self-care (01) ==
PROVIDERS: Emergency Provider Emergency Medicine; PCP Registered Nurse
DX: R07.9 Chest pain, unspecified (principal); Z79.84 Long term (current) use of oral hypoglycemic drugs; E11.9 Type 2 diabetes mellitus without complications; I11.0 Hypertensive heart disease with heart failure; I50.9 Heart failure, unspecified
CPT/HCPCS: 36415; 36416; 71045; 80053; 82962; 83735; 83880; 84484; 85025; 93005; 96374; 96375; 99285; J1815; J2270; J2405